=== PATIENT | male | born 1980 | race Asian ===

== ENCOUNTER 2016-06-30 10:14 | Inpatient (IN) | payer BC ==
[~2016-06-30 10:14] MED LIST: ceFAZolin 2 GM/DEXTROSE 100 ML IV ONE
[2016-06-30] MEDS ORDERED: CEFAZOLIN 2 GM/DEXTROSE/100 ML BAG IV ONE (10:49)
[2016-06-30] MEDS ORDERED: LIDOCAINE 1% 2 ML INJ ONE (10:49)
[2016-06-30] MEDS ORDERED: LIDOCAINE 1% 5 ML SDV ID PRN (11:10)
[2016-06-30] MEDS ORDERED: LR 1,000 ML IV ONE (11:10)
[2016-06-30] MEDS ORDERED: GADOBUTROL 10 ML VIAL IVP ONE (11:22)
[2016-06-30] MEDS ORDERED: MANNITOL 20% 100 GM/500 ML BAG IV ONE (12:18)
[2016-06-30] MEDS ORDERED: AVITENE POWDER 1 GM JAR TP ONE (12:18)
[2016-06-30] MEDS ORDERED: SURGIFLO MATRIX KIT WITH THROMBIN TP ONE (12:18)
[2016-06-30] MEDS ORDERED: THROMBIN (BOVINE) 5,000 UNIT VIAL TP ONE (12:18)
[2016-06-30] MEDS ORDERED: BUPIVACAINE/EPI 0.25% 30 ML SDV ONE ×3 (12:19→19:12)
[2016-06-30] MEDS ORDERED: BACITRACIN 50,000 UNITS/10 ML SYR IRR ONE (12:20)
[2016-06-30] MEDS ORDERED: ACETAMINOPHEN 325 MG TAB PO PRN (12:32)
[2016-06-30] MEDS ORDERED: diphenhydrAMINE 25 MG CAP PO PRN (12:32)
[2016-06-30] MEDS ORDERED: MAGNESIUM HYDROXIDE 30 ML UDCUP PO PRN (12:32)
[2016-06-30] MEDS ORDERED: niCARdipine/NACL 200 ML IV PRN (12:32)
[2016-06-30] MEDS ORDERED: HYDROCODONE/APAP 10/325 TAB PO PRN (12:32)
[2016-06-30] MEDS ORDERED: POLYETHYLENE GLYCOL 3350 17 GM PKT PO PRN (12:32)
[2016-06-30] MEDS ORDERED: ONDANSETRON 4 MG/2 ML VIAL IVP PRN (12:32)
[2016-06-30] MEDS ORDERED: BISACODYL 10 MG SUPP PR PRN (12:32)
[2016-06-30] MEDS ORDERED: METHOCARBAMOL 750 MG TAB PO PRN (12:32)
[2016-06-30] MEDS ORDERED: PROMETHAZINE HCL 25 MG TAB PO PRN (12:32)
[2016-06-30] MEDS ORDERED: LACTULOSE 20 GM/30 ML UDCUP PO PRN (12:32)
[2016-06-30] MEDS ORDERED: MIDAZOLAM 2 MG/2 ML VIAL ONE (12:39)
[2016-06-30] MEDS ORDERED: REMIFENTANIL HCL 1 MG VIAL ONE ×2 (12:40→13:59)
[2016-06-30] MEDS ORDERED: LIDOCAINE 2% 100 MG/5 ML SYR ONE (12:41)
[2016-06-30] MEDS ORDERED: fentaNYL 100 MCG/2 ML INJ ONE ×2 (12:41→18:35)
[2016-06-30] MEDS ORDERED: PROPOFOL/EMULSION 500 MG/50 ML BOTTLE IV ONE ×2 (12:41→13:59)
[2016-06-30] MEDS ORDERED: DEXAMETHASONE 4 MG/ML VIAL ONE ×2 (12:45)
[2016-06-30] MEDS ORDERED: ONDANSETRON 4 MG/2 ML VIAL ONE (12:46)
--- NOTE | 2016-06-30 12:47 | POSTOPPROG ---
Post Op Note Date of Operation: 06/30/16 Surgeon: [facility] Scientist: Emerald Anthony PA-C Anesthesia: GET(General Endotracheal) Pre-op Diagnosis: Right temporal brain mass Post-op Diagnosis: same Procedure: Right temporal craniotomy for resection of brain mass Findings: See operative note Inf/Abcess present in the surg proc area at time of surgery?: No EBL: 50-100 Drains: George Osorio (Subgaleal) SOAP Progress Note Assessment/Plan: Assessment: Plan: S: Waking up in PACU slowly. Stable but not moving left side. O: NAD, VSS PERRl, EOMI No droop moving RUE/RLE to command LUE/LLE so far with no movement- Incision c/d/i- dressed Drain- Subgaleal GINA drain to suction A/P: 36 yo male sp right temporal craniotomy for resection of brain mass. -Postop with LUE/LLE weakness, stat CT ordered and taken down for scan from PACU -Admit to ICU -Neuro checks as ordered -Postop MRI in am -q8 sodium checks -Advance diet as tolerated -DVT : TEDs, SCDs, Lovenox- pending how postop MRI looks -On 10 day Decadron taper starting at 4mg q6 -Continue Keppra -PT/OT/ELECTRICAL ESTIMATOR -Call with any neuro exam changes -Seen by Dr. Hare in PACU 06/30/16 12:43 06/30/16 20:02
[2016-06-30] MEDS ORDERED: LIDOCAINE HCL 160 MG/4 ML LTA KIT TP ONE (12:50)
[2016-06-30] MEDS ORDERED: epHEDrine SULFATE 10 MG/ML SYR ONE ×2 (12:55)
[2016-06-30] MEDS ORDERED: levETIRAcetam 1,000 MG in NS 100 ML IV ONE (13:00)
[2016-06-30] MEDS ORDERED: *MD ORDERING ONLY-DEXAMETHASONE TAPER PO SCH (13:00)
[2016-06-30] MEDS ORDERED: PAPAVERINE HCL 60 MG/2 ML SDV ONE (15:57)
[2016-06-30] MEDS ORDERED: PROPOFOL 200 MG/20 ML VIAL ONE (17:57)
[2016-06-30] MEDS ORDERED: DEXAMETHASONE 4 MG TAB PO SCH (20:00)
[2016-06-30] MEDS ORDERED: FAMOTIDINE 20 MG TAB PO SCH (21:00)
[2016-06-30] MEDS ORDERED: levETIRAcetam 500 MG TAB PO SCH (21:00)
[2016-06-30] MEDS ORDERED: NS BOLUS 500 ML (Wide open) IV ONE (22:30)
[2016-06-30] MEDS: levETIRAcetam 1,000 MG in NS 100 ML IV SCH (23:09)
[2016-06-30] MEDS: NS W/ 20 KCl/L 1,000 ML IV SCH (23:09)
[2016-06-30] MEDS: SENNOSIDES/DOCUSATE SODIUM TAB PO SCH (23:09)
[2016-06-30] MEDS: DEXAMETHASONE 4 MG/ML VIAL IVP SCH (23:10)
[2016-07-01] MEDS: FAMOTIDINE 20 MG/NACL 50 ML IV SCH ×3 (01:19→20:23)
[2016-07-01] MEDS ORDERED: NS BOLUS 1000 ML (Wide open) IV ONE (03:00)
[2016-07-01 04:25] LABS: % IMMATURE GRANULYOCYTES 0.5 % (0.0-1.1); ABSOLUTE IMMATURE GRANULOCYTES 0.08 10^3/uL (0.00-0.10); ADD DIFF? NO; ADD MORPH? NO; ADD SCAN? NO; ATYPICAL LYMPHOCYTE FLAG 0 (0-99); FRAGMENT RBC FLAG 0 (0-99); HEMATOCRIT 34.1 % (40.0-51.0); LEFT SHIFT FLG 10 (0-99); LIPEMIA HEMOLYSIS FLAG 90 (0-99); MEAN CELL HEMOGLOBIN 33.7 pg (27.9-34.1); MEAN CELL HEMOGLOBIN CONCENTR. 35.2 g/dL (32.4-36.7); MEAN CELL VOLUME 95.8 fL (81.5-99.8); MEAN PLATELET VOLUME 9.3 fL (8.7-11.7); PLATELET CLUMPS FLAG 0 (0-99); PLATELET COUNT 169 10^3/uL (150-400); RED BLOOD CELL COUNT 3.56 10^6/uL (4.40-6.38); RED CELL DISTRIBUTION WIDTH 12.2 % (11.5-15.2)
--- NOTE | 2016-07-01 04:30 | GOP ---
[f rep st] OPERATIVE REPORT DATE OF OPERATION: 06/30/2016 SURGEON: Jam Hare MD NEUROSURGEON: Jam Hare MD. 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 PROCEDURE PERFORMED: 1. Right frontotemporal craniotomy for microsurgical gross total resection of right temporal astroc ytoma. 2. Use of the operative microscope. 3. Stealth stereotactic neuronavigation for volumetric gross total resection of brain tumor. 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 SPECIMENS: Right temporal brain tumor. All sponge and needle counts were correct at the end of the case. ESTIMATED BLOOD LOSS: 200 cc. INDICATIONS: The patient is a 36-year-old man who presented with seizures approximately 1 month ago . In the workup procedures, he had an MRI of the brain which revealed a large, nearly 5 cm, mass in the right temporal lobe with significant involvement of the amygdala and anterior hippocampus, whic h was encroaching medially across the edge of the tentorium and causing mass effect on the brainstem . He was not symptomatic from his mass effect on the brainstem but only with was seizures. He pres ents today for elective biopsy and resection. DESCRIPTION OF PROCEDURE: After informed consent was obtained from the patient, the patient was bro ught to the operating room, was placed in supine position on the operating table. A formal time-out was performed, identifying the patient by name, medical record number, and date of . Preopera tive antibiotics were given. The endotracheal tube was placed and general endotracheal anesthesia w as smoothly induced. The patient's head was then placed in the Manzo pins and turned toward the left side, exposing the right temporal region. The Stealth was then registered to the scalp using k nown surface landmarks and checked for accuracy. This was used to plan a reverse question-fredi styl e temporal incision. The hair was clipped. 20 cc of 0.25% Marcaine with epinephrine was infiltrate d in the skin for hemostasis. At this point, the head was prepped and draped in the normal sterile fashion. The skin incision was made using a 10 blade and the subcutaneous tissues were dissected using monopolar electrocautery. Farooq clips were placed for hemostasis. Next, the temporalis muscle and its fascia was opened in ne with the incision and a single myocutaneous flap was retracted anteriorly. We identified the dorcas t of the zygoma on the inferior aspect of the wound, and then we elevated the scalp anteriorly to id entify the area just posterior to the keyhole. At this point, we checked the Stealth to be sure that we would cover the appropriate area for the cr aniotomy. Three bur holes were then made with the pipe turner. These were connected to form a front otemporal craniotomy flap. The Leksell rongeurs were used to bite down the sphenoid wing in paralle l with the skull base, and craniectomize a small portion near the temporal tip. We then irrigated e verything with copious amounts of bacitracin irrigation. All bleeding was controlled with bipolar c autery and Gelfoam. The dura was then opened in a curvilinear fashion with its flap toward the sphe noid wing and this was flapped anteriorly. The operative microscope was then brought on the field and the remainder of the procedure was perfor med under high-power magnification. We began by inspecting the brain surface and, near the anterior temporal tip, the surface appeared somewhat pale and abnormal such as is common with a low-grade tu mor. The vein of Lilly was seen coursing posteriorly and we did not want to cause any problems with this. Therefore, just anterior to the vein of Lilly, the arachnoid was dissected over the fissure. This was on the posterior temporal lobe, and we extended this toward the sylvian fissure. Next, a biopsy was taken anteriorly of the abnormal tissue, which came back as likely low-grade glioma. We then used the ultrasonic aspirator to remove cap of brain from the vein of Lilly to the temporal tip. This was checked with the Stealth to be sure that we were covering the area of the tumor. The tumor was somewhat grayish and rubbery, and was fairly distinct from the normal brain tissue especi ally in the temporal tip. We continued this dissection inferiorly along the edge of the tentorium, removing completely the anterior temporal lobe. Once the inferior anterior temporal lobe was remove d, we next turned our attention to the sylvian fissure. The arachnoid over the sylvian fissure was 1st opened and a small MCA branch was identified, and we followed this down to the M2 trunks. Then going sub frontally, we opened the arachnoid all way down the proximal sylvian fissure and identified the carotid artery. We continued this dissection in th e sylvian fissure although this was quite difficult due to the nature of the tumor being expansile a nd elevating the MCA branches near the frontal lobe. We continued this dissection until the entiret y of the M1 was identified and protected. Then a few small arterial branches going to the temporal tip were coagulated and divided. We then were able to remove the complete temporal tip en bloc. Po steriorly we removed enough tumor until some choroid plexus in the temporal horn of the lateral vent ricle was identified. We then used this as a landmark and resected anteriorly toward the edge of th e tentorium, but inferior to the MCA where the uncus would be. The edge of the tentorium was identi fied and the tumor was carefully from this area. The 3rd nerve was identified and this wa s quite adherent to the uncus via the arachnoid. This was very carefully dissected away. By debulk ing and arachnoid dissection we were able to free the uncus, which was herniated far over the edge o f the tentorium. The cerebral peduncle of the mid brain was identified and carefully protected. Th e posterior communicating artery and the posterior cerebral artery were protected as well and dissec miguelito. Superiorly, we saw the basal vein of Eligio and therefore had removed the entirety of the u ncus. We then checked the margins of the resection with the Stealth and it appeared as though we gonzales d covered the entire area. I then checked all the edges of the tissue to be sure that there was no longer any abnormal looking tumor tissue on the margins. The wound was then copiously irrigated using sterile saline. The edges of the resection cavity were covered with Surgicel and there was no further bleeding. The cavity was then completely irrigated out with sterile saline and filled with sterile saline. The dura was then closed in a watertight fa shion using running 4-0 Nurolon. Some DuraSeal was placed over the dura. The craniotomy flap was t hen plated back in place using Synthes titanium plates and screws. A submuscular GINA drain was place d. The temporalis muscle and its fascia was closed using interrupted 2-0 Vicryl. The wound was cop winder iously irrigated using bacitracin irrigation again. The galea was closed using interrupted 2-0 Vicr yl, and the skin was closed using a running 4-0 Monocryl. The hair was then washed. Sterile dressi ngs were placed. The patient was awakened in the operating room. He was extubated and transferred to the PACU in stable condition. There were no operative complications. I was scrubbed and present for the entire procedure. FLUIDS REPLACED: And urine output were per the anesthesia record. /[id number]/MODL
[2016-07-01 04:36] LABS: ANION GAP 7 mEq/L (8-16); CALCIUM 8.1 mg/dL (8.5-10.4); CARBON DIOXIDE 22 mEq/l (22-31); CHLORIDE 109 mEq/L (97-110); CREATININE 0.6 mg/dL (0.7-1.3); GLOMERULAR FILTRATION RATE > 60; GLUCOSE 121 mg/dL (70-100); POTASSIUM 4.4 mEq/L (3.5-5.2); SODIUM 138 mEq/L (134-144)
[2016-07-01] MEDS: DEXAMETHASONE 4 MG/ML VIAL IVP SCH ×4 (04:41→22:21)
--- NOTE | 2016-07-01 08:09 | NEUSURGPN ---
Assessment/Plan: Assessment: Plan: S:Patient denies headaches, nausea, vomiting. O: NAD, VSS PERRl, EOMI- right eye with some lid lag slight left facial droop this morning moving RUE/RLE to command Moving LLE, more distally than proximally. 3/5 Incision c/d/i- dressed Drain- Subgaleal GINA drain to suction- output 150 A/P: 36 yo male sp right temporal craniotomy for resection of brain mass. -Postop with LUE/LLE paralysis, stat CT ordered and taken down for scan from PACU- showed no acute hemorrhage, this morning with LLE movement and will taper printed circuit layout left hand 3/5. Will obtain MRI this morning and look for signs of possible stroke. -Admit to ICU -Neuro checks as ordered -Postop MRI pending -q8 sodium checks- 138 this morning -Advance diet as tolerated -DVT : TEDs, SCDs, Lovenox- pending how postop MRI looks -On 10 day Decadron taper starting at 4mg q6 -Continue Kera -PT/OT/INTERIOR DESIGN PROFESSOR -Call with any neuro exam changes -Seen by Dr. Hare in PACU 06/30/16 12:43 06/30/16 20:02 Catheter Insertion Date: 07/01/16 - Physician Discussed Patient with Dr.: Hare Patient Seen by Dr.: Hare Neurosurgery Physical Exam - Vitals, I&O, Labs I and O 06/30/16 07/01/16 07/02/16 05:59 05:59 05:59 Intake Total 6333 Output Total 3920 450 Balance 2413 -450 Weight 60.2 kg Intake: IV Intake (ml) 5401 IV Infused (ml) 932 NS W/ 20 KCl/L 1,000 ml @ 932 100 mls/hr IV CONT DINO Rx#:[id number] Output: Urine (ml) 3450 450 Catheter 3450 Urinal 450 Estimated Blood Loss (ml) 250 Wound Drainage (ml) 220 Right Head George Osorio 220 Vital Signs Temp Pulse Resp BP Pulse Ox 37.1 C 63 16 91/45 L 94 07/01/16 04:00 07/01/16 07:00 07/01/16 07:00 07/01/16 07:00 07/01/16 07:00 Laboratory Results 07/01/16 04:15 07/01/16 04:15 ICD10 Worksheet Patient Problems: Problems Problem Status Onset Neoplasm of brain causing mass effect on adjacent structures Acute - ICD10 Problem Qualifiers (1) Neoplasm of brain causing mass effect on adjacent structures
[2016-07-01] MEDS: levETIRAcetam 1,000 MG in NS 100 ML IV SCH ×2 (09:28→20:45)
[2016-07-01] MEDS: CHOLECALCIFEROL VIT D3 1,000 UNITS TAB PO SCH (09:30)
[2016-07-01] MEDS: SENNOSIDES/DOCUSATE SODIUM TAB PO SCH ×2 (09:31→20:24)
[2016-07-01] MEDS ORDERED: GADOBUTROL 10 ML VIAL IVP ONE (10:41)
[2016-07-01] MEDS: NS W/ 20 KCl/L 1,000 ML IV SCH ×2 (13:35→23:59)
[2016-07-02] MEDS: DEXAMETHASONE 4 MG/ML VIAL IVP SCH ×4 (04:09→21:41)
[2016-07-02 04:24] LABS: % IMMATURE GRANULYOCYTES 0.5 % (0.0-1.1); ABSOLUTE IMMATURE GRANULOCYTES 0.08 10^3/uL (0.00-0.10); ADD DIFF? NO; ADD MORPH? NO; ADD SCAN? NO; ATYPICAL LYMPHOCYTE FLAG 0 (0-99); FRAGMENT RBC FLAG 0 (0-99); HEMATOCRIT 34.3 % (40.0-51.0); HEMOGLOBIN 12.1 g/dL (13.7-17.5); LEFT SHIFT FLG 10 (0-99); LIPEMIA HEMOLYSIS FLAG 90 (0-99); MEAN CELL HEMOGLOBIN 33.6 pg (27.9-34.1); MEAN CELL HEMOGLOBIN CONCENTR. 35.3 g/dL (32.4-36.7); MEAN CELL VOLUME 95.3 fL (81.5-99.8); MEAN PLATELET VOLUME 9.1 fL (8.7-11.7); PLATELET CLUMPS FLAG 0 (0-99); PLATELET COUNT 154 10^3/uL (150-400); RED CELL DISTRIBUTION WIDTH 12.2 % (11.5-15.2)
[2016-07-02 04:39] LABS: ANION GAP 3 mEq/L (8-16); CALCIUM 8.4 mg/dL (8.5-10.4); CARBON DIOXIDE 26 mEq/l (22-31); CHLORIDE 107 mEq/L (97-110); CREATININE 0.6 mg/dL (0.7-1.3); GLOMERULAR FILTRATION RATE > 60; GLUCOSE 127 mg/dL (70-100); SODIUM 136 mEq/L (134-144)
[2016-07-02] MEDS: CHOLECALCIFEROL VIT D3 1,000 UNITS TAB PO SCH ×2 (08:14→08:20)
[2016-07-02] MEDS: levETIRAcetam 1,000 MG in NS 100 ML IV SCH ×2 (08:14→20:52)
[2016-07-02] MEDS: FAMOTIDINE 20 MG/NACL 50 ML IV SCH ×2 (08:14→20:29)
[2016-07-02] MEDS: SENNOSIDES/DOCUSATE SODIUM TAB PO SCH ×3 (08:14→20:39)
--- NOTE | 2016-07-02 08:35 | SOAPPROG ---
SOAP Progress Note Assessment/Plan: Assessment: 36 yo M POD #2 right craniotomy for resection of temporal lesion, complicated by right sided basal ganglia infarct Plan: neuro: stable since yesterday, limited movement in left leg, no movement in left arm this am. PT/OT/ST, swallow study today on decadron on keppra dc GINA Na 136, continue to follow daily patient will likely need inpatient rehab ok to transfer to floor please call with neuro changes discussed with Dr Hare 07/02/16 08:29 07/02/16 08:37 07/02/16 08:38 Subjective: no headaches, no N/V. continued left arm/weakness. Objective: Vital Signs Temp Pulse Resp BP Pulse Ox 37.4 C 58 L 16 99/55 L 94 07/02/16 08:00 07/02/16 08:00 07/02/16 08:00 07/02/16 08:00 07/02/16 08:00 Laboratory Results 07/02/16 04:17 07/02/16 04:17 07/01/16 07/02/16 07/03/16 05:59 05:59 05:59 Intake Total 5246 3334 Output Total 5309 4590 325 Balance 6739 -5717 -043 AAOx4, +FC PERRL, left facial droop right/left arm 5/5, left arm 0/5, left leg 1/5 + light touch C/D/I ICD10 Worksheet Patient Problems: Problems Problem Status Onset Neoplasm of brain causing mass effect on adjacent structures Acute
--- NOTE | 2016-07-02 17:25 | GCON ---
[f rep st] CONSULTATION PULMONARY/CRITICAL CARE CONSULTATION. DATE OF CONSULTATION: 07/01/2016 REFERRING PHYSICIAN: Jam Hare MD REASON FOR CONSULTATION: Evaluation and management of hypotension and CVA. HISTORY: The patient is a 36-year-old male who in May had the onset of some seizures. An MRI jesus wed an expansile mass in the right temporal lobe with some uncal herniation. He was referred to Dr. Hare, who performed a craniotomy with resection of the tumor, which was felt to be an astrocytoma. The intraoperative course was unremarkable. Postoperatively, the patient has had hemiplegia on th e left, which was unexpected. An MRI demonstrates a CVA affecting the internal capsule on the right . The patient is somnolent; but when he awakes, he denies pain. PAST MEDICAL HISTORY: None. MEDICATIONS: None prior to current illness. He has been started on Keppra. SOCIAL HISTORY: The patient does not drink and has never smoked. FAMILY HISTORY: Negative. REVIEW OF SYSTEMS: Unobtainable. PHYSICAL EXAMINATION: GENERAL: The patient is somnolent but arousable. VITAL SIGNS: His blood pr essure is 90/60. His heart rate is 70. He is afebrile. Oxygen saturations are 95% on room air. H EENT: Normocephalic and atraumatic. NECK: No adenopathy. Trachea is midline. CHEST: Clear to a uscultation. CARDIAC: Regular rate and rhythm without murmur. ABDOMEN: Soft, nontender. Bowel s ounds are present. EXTREMITIES: No clubbing, cyanosis, or edema. NEURO: The patient is somnolent but arousable. He has a left facial droop and left hemiparesis with 0/1 strength in his arm and le g on the left. LABORATORY DATA: Chemistry group shows a white blood count of 17.5, hemoglobin is 12.0, and platele t count is 169. Chemistry group is unremarkable. Glucose is 121. An MRI shows an area of ischemia/infarct in the internal capsule on the right. The images were revi ewed per Dr. Hare. ASSESSMENT: 1. Brain tumor, status post resection. 2. Acute cerebrovascular accident. This is likely related to a spasm or transient occlusion of art erial blood flow intraoperatively. It is causing dense hemiparesis currently, although the patient did have a bit more movement in his left side earlier today. This could be related to changes in pe rfusion related to blood pressure. 3. Hypotension. The patient has mild hypotension, but this could be contributing to the patient's paresis. RECOMMENDATIONS: 1. I will give a bolus of saline to see if that can improve his blood pressure. If improved blood pressure improves his neuro exam, we will either continue fluids or start pressors in order to maint ain perfusion. 2. Monitor in the ICU overnight. /[id number]/MODL
[2016-07-02] MEDS: NS W/ 20 KCl/L 1,000 ML IV SCH (20:29)
[2016-07-03] MEDS: DEXAMETHASONE 4 MG/ML VIAL IVP SCH ×3 (04:16→17:32)
[2016-07-03] MEDS: NS W/ 20 KCl/L 1,000 ML IV SCH ×2 (04:42→21:23)
--- NOTE | 2016-07-03 08:58 | NEUSURGPN ---
Assessment/Plan: Assessment: Plan: S:Patient states he is feeling better this morning. Denies headaches. Eating well. O: AAOx4, +FC PERRL, left facial droop right/left arm 5/5, left arm 0/5, left leg 1/5 + light touch C/D/I - dressed Assessment: 36 yo M POD #3 right craniotomy for resection of temporal lesion, complicated by right sided basal ganglia infarct Plan: neuro: stable since yesterday, limited movement in left leg, no movement in left arm this am. PT/OT/ST, has passed swallow eval on decadron- continue for 10 days total- taper on keppra Na 137 this am patient seen by [facility] yesterday- will likely go when bed available, ok from neurosurg standpoint to be discharged when bed available please call with neuro changes discussed with Dr Hare 06/30/16 12:43 06/30/16 20:02 Catheter Insertion Date: 07/01/16 - Physician Discussed Patient with Dr.: Hare Patient Seen by Dr.: Hare Neurosurgery Physical Exam - Vitals, I&O, Labs I and O 07/02/16 07/03/16 07/04/16 05:59 05:59 05:59 Intake Total 3334 2053 Output Total 4590 4020 400 Balance -1255 Weight 60.2 kg Intake: IV Intake (ml) 1150 1253 IV Infused (ml) 2184 800 Famotidine 20 mg/NaCl 50 50 ml @ 200 mls/hr IV Q12 DINO Rx#:[id number] NS W/ 20 KCl/L 1,000 ml @ 2034 800 100 mls/hr IV CONT DINO Rx#:[id number] levETIRAcetam 1,000 mg In 100 Ns 100 ml @ 440 mls/hr IV Q12 DINO Rx#:[id number] Output: Urine (ml) 4350 3990 400 Incontinence 1425 Urinal 4350 2565 400 Wound Drainage (ml) 240 30 Right Head George Osorio 240 30 Other: Intake Quantity Yes Sufficient Number of Voids Incontinence 2 1 Urinal 1 1 1 Vital Signs Temp Pulse Resp BP Pulse Ox 36.4 C 65 14 92/39 L 95 07/03/16 07:49 07/03/16 07:49 07/03/16 07:49 07/03/16 07:49 07/03/16 07:49 Laboratory Results 07/02/16 04:17 07/03/16 05:25 ICD10 Worksheet Patient Problems: Problems Problem Status Onset Neoplasm of brain causing mass effect on adjacent structures Acute - ICD10 Problem Qualifiers (1) Neoplasm of brain causing mass effect on adjacent structures
[2016-07-03] MEDS ORDERED: ENOXAPARIN 40 MG/0.4 ML SYR SC SCH (09:00)
[2016-07-03] MEDS: levETIRAcetam 1,000 MG in NS 100 ML IV SCH (09:40)
[2016-07-03] MEDS: FAMOTIDINE 20 MG/NACL 50 ML IV SCH (09:59)
[2016-07-03] MEDS: SENNOSIDES/DOCUSATE SODIUM TAB PO SCH ×2 (10:05→21:24)
[2016-07-03] MEDS: CHOLECALCIFEROL VIT D3 1,000 UNITS TAB PO SCH (10:05)
--- NOTE | 2016-07-03 14:19 | PDIAF ---
- Diagnosis Code Status: Full Code - Medication Management Discharge Medications: Medications to Continue on Transfer Cholecalciferol Vit D3 [Vitamin D3 (*)] 1,000 units PO DAILY 06/30/16 [Last Taken 06/25/16] levETIRACETAM [Levetiracetam] 1,000 mg PO BID 06/30/16 [Last Taken 06/29/16 21: 00] Acetaminophen [Tylenol 325mg (*)] 650 mg PO Q4HRS PRN #0 tab 07/03/16 [Last Taken Unknown] Cholecalciferol Vit D3 [Vitamin D3 (*)] 1,000 units PO DAILY #0 tab 07/03/16 [ Last Taken Unknown] Dexamethasone [Decadron 4mg/ml inj (*)] 2 mg IVP Q12H #0 vial 07/03/16 [Last Taken Unknown] Dexamethasone [Decadron 4mg/ml inj (*)] 2 mg IVP Q24H #0 vial 07/03/16 [Last Taken Unknown] Dexamethasone [Decadron 4mg/ml inj (*)] 4 mg IVP Q12H #0 vial 07/03/16 [Last Taken Unknown] Dexamethasone [Decadron 4mg/ml inj (*)] 4 mg IVP Q6H #0 vial 07/03/16 [Last Taken Unknown] Famotidine [Pepcid 20 MG (*)] 20 mg PO BID #0 tab 07/03/16 [Last Taken Unknown] HYDROcodone/APAP 10/325 [[place] 10/325 (*)] 1 - 2 tab PO Q6HRS PRN #0 tab [Last Taken Unknown] Ondansetron HCl Pf [Zofran 4 mg Inj (*)] 4 mg IVP Q4HRS PRN #0 vial 07/03/16 [ Last Taken Unknown] Polyethylene Glycol 3350 [Miralax 17 gm (*)] 17 gm PO DAILY PRN #0 pkt 07/03/16 [Last Taken Unknown] Promethazine HCl [Phenergan 25mg (*)] 12.5 - 25 mg PO Q6HRS PRN #0 tab 07/03/16 [Last Taken Unknown] Sennosides/Docusate Sodium [Senokot-S] 1 - 2 tab PO BID #0 tab 07/03/16 [Last Taken Unknown] diphenhydrAMINE [Benadryl 25 MG (*)] 25 mg PO HS PRN #0 cap 07/03/16 [Last Taken Unknown] Discharge Medications: Refer to the Discharge Home Medication list for PRN reason. - Orders Services needed: Home Care, Registered Nurse, Physical Therapy, Occupational Therapy, Speech Language Pathologist Home Care Face to Face: I certify that this patient was under my care and that I had the required [id number] encounter meeting the encounter requirements on the discharge day. My findings support the fact that the patient is homebound as defined in CMS Chapter 7 Medicare Benefits Manual 30.1.1, The condition of the patient is such that there exists a normal inability to leave home and consequently, leaving home would require a considerable and taxing effort. Diet Recommendation: no restrictions on diet Diet Texture: Dysphagia 1 - Pureed, Thin Liquids, Meds Crushed in Puree Wound Care Instructions: No restrictions, activity as tolerated-. can remove dressing today 07/03. May shower on postop day #3, may get incision wet, keep short 5-7 minutes. Continue Keppra 100mg BID. Continue Decadron Taper: patient is on a 10 day steroid taper. He is to finish the following: -finish 4mg q6hrs by midnight tonight 07/03. -Then 4mg q12 X 3 days. -Then 2mg q12 X 2 days. -Then 2mg q24 X 2 days then stop Activity/Weight Bearing Restrictions: No restrictions, activity as tolerated-. can remove dressing today 07/03. May shower on postop day #3, may get incision wet, keep short 5-7 minutes. Continue Keppra 100mg BID. Continue Decadron Taper: patient is on a 10 day steroid taper. He is to finish the following: - finish 4mg q6hrs by midnight tonight 07/03. -Then 4mg q12 X 3 days. -Then 2mg q12 X 2 days. -Then 2mg q24 X 2 days then stop - Follow Up Care Current Providers and Referrals: Joshua Armenta MD [Primary Care Provider] - Jam Hare MD [Medical Doctor] - follow up in 2 weeks
[2016-07-03] MEDS: levETIRAcetam 500 MG/5 ML UDCUP PO SCH (21:24)
[2016-07-03] MEDS: FAMOTIDINE 20 MG TAB PO SCH (21:25)
[2016-07-04] MEDS ORDERED: DEXAMETHASONE 4 MG TAB PO SCH (02:00)
[2016-07-04] MEDS ORDERED: DEXAMETHASONE 4 MG/ML VIAL IVP SCH (04:30)
[2016-07-04] MEDS: NS W/ 20 KCl/L 1,000 ML IV SCH (06:32)
[2016-07-04 07:27] VITALS: BP 97/55; PULSE 55; RESP 14; TEMP 97.7; O2SAT 92
[2016-07-04] MEDS: FAMOTIDINE 20 MG TAB PO SCH (09:48)
[2016-07-04] MEDS: levETIRAcetam 500 MG/5 ML UDCUP PO SCH (09:48)
[2016-07-04] MEDS: CHOLECALCIFEROL VIT D3 1,000 UNITS TAB PO SCH (09:48)
[2016-07-04] MEDS: SENNOSIDES/DOCUSATE SODIUM TAB PO SCH (09:48)
--- NOTE | 2016-07-04 10:08 | NEUSURGPN ---
Assessment/Plan: Assessment: 36 yo M POD #4 right craniotomy for resection of temporal lesion, complicated by right sided basal ganglia infarct Plan: neuro: stable since yesterday, limited movement in left leg, no movement in left arm this am. PT/OT/ST, has passed swallow eval on decadron- continue for 10 days total- taper on keppra [place] to trasnfer to [facility] today, discharge with held up yesterday. discussed with Dr Hare Catheter Insertion Date: 07/01/16 Neurosurgery Physical Exam - Vitals, I&O, Labs I and O 07/03/16 07/04/16 07/05/16 05:59 05:59 05:59 Intake Total 2052 1999 Output Total 4020 2825 250 Balance -19665 Intake: Oral (ml) 650 IV Intake (ml) 1253 IV Infused (ml) 800 1350 Famotidine 20 mg/NaCl 50 50 ml @ 200 mls/hr IV Q12 DINO Rx#:[id number] NS W/ 20 KCl/L 1,000 ml @ 800 1200 100 mls/hr IV CONT DINO Rx#:[id number] levETIRAcetam 1,000 mg In 100 Ns 100 ml @ 440 mls/hr IV Q12 DINO Rx#:[id number] Output: Urine (ml) 3990 2825 250 Incontinence 1425 1175 Urinal 2565 1650 250 Wound Drainage (ml) 30 Right Head George Osorio 30 Other: Intake Quantity Yes Yes Sufficient Number of Voids Incontinence 1 3 Urinal 1 1 1 Vital Signs Temp Pulse Resp BP Pulse Ox 36.5 C 55 L 14 97/55 L 92 07/04/16 07:26 07/04/16 07:26 07/04/16 07:26 07/04/16 07:26 07/04/16 07:26 Laboratory Results 07/02/16 04:17 07/03/16 05:25 ICD10 Worksheet Patient Problems: Problems Problem Status Onset Neoplasm of brain causing mass effect on adjacent structures Acute
[2016-07-06] MEDS ORDERED: DEXAMETHASONE 2 MG TAB PO SCH (02:00)
[2016-07-06] MEDS ORDERED: DEXAMETHASONE 4 MG/ML VIAL IVP SCH (04:30)
[2016-07-08] MEDS ORDERED: DEXAMETHASONE 2 MG TAB PO SCH (14:00)
[2016-07-08] MEDS ORDERED: DEXAMETHASONE 4 MG/ML VIAL IVP SCH (16:30)
== END 2016-07-04 11:38 | DRG 25 ==
LOC: F3N 10:14 → F2N 19:37 → F3N 07-02 21:01
PROVIDERS: ADMIT Neurological Surgery; ATTEND Neurological Surgery
DX: C71.2 Malignant neoplasm of temporal lobe (principal); I63.9 Cerebral infarction, unspecified; G81.90 Hemiplegia, unspecified affecting unspecified side; I95.81 Postprocedural hypotension
CPT/HCPCS: 92507-GN; 92523-GN; 92526-GN; 92610-GN; 97112-GP; 97162-GP; 97167-GO; 97530-GO; 97530-GP; 97535-GO; A9585; C1713; J0690; J1100; J1953; J2001; J2250; J2405; J2440; J2704; J3010

== ENCOUNTER 2016-07-04 12:00 | Inpatient (IN) | payer BC ==
[2016-07-04] MEDS ORDERED: POLYETHYLENE GLYCOL 3350 17 GM PKT PO PRN (12:54)
[2016-07-04] MEDS: BISACODYL 10 MG SUPP PR PRN (13:27)
[2016-07-04] MEDS ORDERED: PROMETHAZINE HCL 25 MG TAB PO PRN (13:29)
[2016-07-04] MEDS ORDERED: ONDANSETRON DISINTEGRATING 4 MG TAB PO PRN (13:31)
--- NOTE | 2016-07-04 13:32 | PDOREHIP ---
Admission [facility] - Admission - 3 Day Assessment Period Admission Date/Day 1: 07/04/16 Day 2: 07/05/16 Day 3: 07/06/16 - Active Diagnoses Comorbidities and Co-existing Conditions at Admission: 94032. None of the Above - Skin Conditions Unhealed Pressure Ulcer (1 or more/Stage 1 or >)-Admission: 0. No
--- NOTE | 2016-07-04 14:41 | GHP ---
[f rep st] HISTORY AND PHYSICAL POST-ADMISSION PHYSICIAN EVALUATION AND REHABILITATION TREATMENT PLAN DATE OF ADMISSION: 07/04/2016 DATE OF EVALUATION: 07/04/2016 TIME OF EVALUATION: 1245 hours. REFERRING FACILITY: [facility]. IMPAIRMENT GROUP: 2.1. DATE OF ONSET: 06/30/2016 REFERRING PHYSICIAN: Dr. Hare. REHABILITATION DIAGNOSIS: Debility, status post craniotomy for right temporal lobe tumor excision with perioperative cerebrovascular accident in the right basal ganglia/lentiform nucleus and right temporal lobe along the anterior and posterior surgical margins. ETIOLOGIC DIAGNOSIS: Nontraumatic brain dysfunction. DATE OF SURGERY: 06/30/2016 HISTORY OF PRESENT ILLNESS: The patient is 36-year-old man who experienced seizures. An MRI of his brain was done which showed a right temporal lobe tumor on 06/11/2016. He came to [facility] on 06/30/2016 and had surgery on the same day, removing approximately a 4.7 x 5 cm tumor from the right temporal lobe. There was residual tumor seen on the followup MRI. He unfortunately suffered a perioperative cerebrovascular accident involving the right basal ganglia/lentiform nucleus and the right temporal lobe along the anterior and posterior surgical margins. He has profound weakness of the left upper extremity and left lower extremity. He was otherwise medically stabilized and referred to inpatient rehabilitation for recovery from his deficits. STUDIES IN THE HOSPITAL: MR brain imaging postsurgical is as described above. LABORATORY STUDIES: Most recent on 07/02/2016. CBC showed an elevated white blood cell count of 16.8, likely due to corticosteroid treatment. He has some anemia with a hemoglobin of 12.1 and hematocrit of 34.3. These have improved somewhat from the previous day. Serum chemistry on 07/02/2016 showed overall normal renal function and electrolytes. Creatinine was low at 0.6. Glucose was high at 127. He had a slightly low calcium at 8.4. On 07/03/2016, his sodium level was stable. It was 137. PRECAUTIONS: He is a fall risk. He has aspiration precautions. He has seizure precautions. ACTIVE COMORBIDITIES: He has a tier 3 comorbidity of hemiparesis. Otherwise, he has no active tier 1, tier 2, or tier 3 comorbidities. PAST MEDICAL HISTORY: He had an ACL injury. PAST SURGICAL HISTORY: He had an ACL repair in 2012. PRE-HOSPITAL MEDICATIONS: I do not believe he was taking any medications. ADMISSION MEDICATIONS: 1. Aspirin 650 mg q.6 hours p.r.n. 2. Cholecalciferol 1000 units p.o. daily. 3. Dexamethasone taper. 4. Diphenhydramine 25 mg p.o. at bedtime. 5. Famotidine 20 mg p.o. b.i.d. 6. Hydrocodone/acetaminophen 10/325, 1-2 tabs p.o. q.4 hours p.r.n. 7. Levetiracetam 1000 mg p.o. b.i.d. 8. Ondansetron. 9. Polyethylene glycol 17 g p.o. daily. 10. Promethazine 12.5 to 25 mg p.o. q.6 hours. 11. Senna/docusate 1-2 tabs p.o. b.i.d. ALLERGIES: There are no known drug allergies. FAMILY HISTORY: Noncontributory. PSYCHOSOCIAL HISTORY: He is . He lives with his and I believe with his father as well. He is a nonsmoker. He has been working as a android software engineer. He and his family are originally from [facility]. REVIEW OF SYSTEMS: He reports constipation times four days. He has weakness of the left arm and left leg. He has minimal pain. He denies fevers, chills, cough, dyspnea, chest pain, palpitations, nausea, and vomiting. His appetite is good. He denies urinary frequency or dysuria. He denies joint pain or joint swelling. He denies skin rash or skin breakdown. Otherwise, a 10-point review of systems is negative. PHYSICAL EXAMINATION: VITAL SIGNS: Blood pressure is 99/56, heart rate is 51 respiratory rate is 16, oxygen saturation is 95% on room air, and temperature is 36.8 degrees centigrade. His weight is 60.2 kg, for a body mass index of 20.8. GENERAL: This is a well-nourished, well-developed man who appears younger than his chronologic age, in bed, cooperative, and in no acute distress. HEENT: Extraocular movements are intact. Pupils are equal, round, and reactive to light. He has right ptosis. Mucous membranes are moist. Dentition is in good condition. NECK: Supple. HEART: There is a regular rate and rhythm, with no murmurs, rubs, or gallops. LUNGS: Clear to auscultation bilaterally. ABDOMEN: Soft, nontender, and nondistended, with normoactive bowel sounds and no hepatosplenomegaly. EXTREMITIES: There is no cyanosis, clubbing, or edema. Radial pulses are 2+ bilaterally. Dorsalis pedis pulses are 2+ on the right and trace on the left. NEUROLOGIC: He is alert and oriented x3. He has right ptosis and a left facial droop. Otherwise , cranial nerves 2 through 12 are grossly intact. He has flaccid paralysis of the left upper extremity. On the left lower extremity, he has muscle contraction at the hip flexors and some at the quads. Otherwise, his strength is 0/5 in the left lower extremity. The right upper and lower extremities have normal strength. Sensation is intact to light touch. Deep tendon reflexes are 2+ bilaterally at the biceps, patella, and Achilles tendons. He has poor seated balance. Visual field testing was not attempted due to complications of his right ptosis. He has no dysarthria. SKIN: There are no rashes and no skin breakdown noted. His right frontotemporal craniotomy incision is covered with a dressing and will be examined once the dressing is removed. CURRENT LEVEL OF FUNCTION PER THE PRE-ADMISSION SCREEN: Regarding diet, feeding and swallowing, he was noted to have mild to moderate dysphagia. He was on a dysphagia 1 diet, requiring supervision and assistance with meals. For grooming, he required maximal assistance. For bathing, it was anticipated that assistance would be required. For dressing, again it was anticipated that assistance would be required. For toileting, he required maximal assistance for clothing management. Regarding bladder, he was noted to be incontinent on 07/03 and 07/04. Regarding bowel, he did not have a bowel movement while in acute care. Regarding bed mobility, supine to sit required maximal assist of 2 with voice cuing. Sit to supine required maximal assistance of 2. Today, he was able to accomplish these with moderate assistance of 1. Regarding balance, he required moderate to maximal assistance for seated balance, and this was consistent with today's exam. He was noted to push to the left. Endurance was fair. Communication had moderate impairment. Regarding cognition, there was moderate impairment in attention, executive function, and judgment. He was noted to have left hemineglect. IMPRESSION: Mr. Franco is a 36-year-old man who initially presented with seizures, for which he was treated with levetiracetam and had an MRI of his brain. The MRI showed a nearly 5 cm complex mass in the right temporal lobe. He underwent surgery on 06/30/2016 with excision of the mass. 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 He unfortunately suffered a perioperative cerebrovascular accident involving the residual right temporal lobe along the anterior and posterior surgical margins and of the right basal ganglia and lentiform nucleus. He has deficits including significant left- sided weakness, dysphagia, and left hemineglect, as well as balance impairment. There is still mass effect in his brain on the brain MRI of 07/01/2016, and he was discharged on a steroid taper to treat the associated edema. He is appropriate for inpatient rehabilitation where he will benefit from physical and occupational therapy to optimize his mobility and activities of daily living, speech language pathology for swallowing and communication, nursing care regarding fall risk, bowel and bladder, medication administration and education, neurologic education for the patient and his family, and wound healing and skin integrity. He will benefit from the care of a physician regarding the seizure disorder, the risk for deep venous thrombosis, the risk for infection, and pain management. His goal is to return home with his family and supportive services for a safe discharge. It is anticipated that he will achieve independence with eating and grooming. He will tolerate a regular diet with the least restrictive diet texture. He will achieve modified independence for bed mobility. He may continue to require standby assist to contact guard for transfers. He likely will require assistance for bathing and dressing. It is likely that a wheelchair will be his primary means of mobility, but he may be able to ambulate with a arturo-walker for household distances. He will receive therapy with physical therapy, occupational therapy, and speech and language pathology on a modified schedule for 30-60 minutes per day for each discipline for 7 days a week, to total 15 hours of therapy per week or more. His expected duration of stay is 10-14 days. It is anticipated that upon discharge, he will continue to benefit from home health services, including nursing, speech and language pathology, a nurse's aide, community mental health social worker, occupational therapy, physical therapy, and a stroke support group. ASSESSMENT/PLAN: 1. Left-sided hemiparesis and hemineglect following excision of a right temporal mass and perioperative cerebrovascular accident on 06/30/2016. Physical therapy and occupational therapy to optimize mobility and activities of daily living. 2. Dysphagia and cognitive/communication issues to be assessed and treated per Speech and Language Pathology. 3. Status post craniotomy and excision of brain tumor. Nursing care for wound healing. Continue dexamethasone taper per Neurosurgery. 4. 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 Continue levetiracetam until followup by Neurosurgery. 5. Constipation. Bisacodyl suppository today and bowel program to be adjusted as needed. 6. Prophylaxis. With his right hemiplegia, he is at risk for deep venous thrombosis. However, having just had a craniotomy, he may be at risk for a brain bleed. This was discussed fwith Dr. Hare, Neurosurgery. Will treat with low-dose prophylactic heparin. As he is also on dexamethasone, he may benefit from a gastrointestinal prophylaxis. Regarding risk for ulceration, we will continue famotidine as ordered by Neurosurgery. 7. Pain control will be continued with hydrocodone/acetaminophen combination, and medications will be adjusted as needed. Primary care provider id Dr. Armenta. Follow-up with Neurosurgeon Dr. Hare in 2 weeks. /[id number]/MODL MTDD
[2016-07-04] MEDS: DEXAMETHASONE 4 MG TAB PO SCH (16:39)
[2016-07-04] MEDS ORDERED: LEVETIRACETAM 1000 MG PO SCH (21:00)
[2016-07-04] MEDS: HEPARIN 5,000 UNIT/0.5 ML SYR SC SCH (21:33)
[2016-07-04] MEDS: levETIRAcetam 500 MG TAB PO SCH (21:33)
[2016-07-04] MEDS: FAMOTIDINE 20 MG TAB PO SCH (21:33)
[2016-07-05] MEDS: DEXAMETHASONE 4 MG TAB PO SCH ×2 (04:14→17:04)
[2016-07-05] MEDS: HEPARIN 5,000 UNIT/0.5 ML SYR SC SCH ×3 (05:52→20:57)
[2016-07-05] MEDS: levETIRAcetam 500 MG TAB PO SCH ×2 (08:45→20:57)
[2016-07-05] MEDS: FAMOTIDINE 20 MG TAB PO SCH ×2 (08:49→20:57)
[2016-07-05] MEDS: CHOLECALCIFEROL VIT D3 1,000 UNITS TAB PO SCH (08:49)
[2016-07-05] MEDS: POLYETHYLENE GLYCOL 3350 17 GM PKT PO SCH (08:49)
[2016-07-05] MEDS: ACETAMINOPHEN 325 MG TAB PO PRN (08:50)
[2016-07-05] MEDS: HYDROCODONE/APAP 10/325 TAB PO PRN (12:56)
--- NOTE | 2016-07-05 16:17 | SOAPPROG ---
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 Physical therapy and occupational therapy to optimize mobility and activities of daily living. Consider SSRI for arousal and motor recovery but will start low given seizure risk * Dysphagia and cognitive/communication issues to be assessed and treated per Speech and Language Pathology. * Status post craniotomy and excision of brain tumor. Nursing care for wound healing. Continue dexamethasone taper per Neurosurgery. 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 Continue levetiracetam until followup by Neurosurgery. * Constipation. Bisacodyl suppository and bowel program to be adjusted as needed. * Hypotension: likely due primarily to poor P.O., will encourage * Pain control: cont. hydrocodone/acetaminophen combination, and medications will be adjusted as needed. * Prophylaxis. With his right hemiplegia, he is at risk for deep venous thrombosis. However, having just had a craniotomy, he may be at risk for a brain bleed. Discussed further with Dr. Hare, Neurosurgery: ok with subq heparin. As he is also on dexamethasone, he may benefit from a gastrointestinal prophylaxis. Regarding risk for ulceration, we will continue famotidine as ordered by Neurosurgery. Dispo ideally to home with with f/u Neuro Onc, Neurosurg Subjective: No events overnight. Patient lethargic and poor arousal but discussed with and father. No e/o pain but always tired and poor initiation for food/fluids. Objective: Vital Signs Temp Pulse Resp BP Pulse Ox 36.8 C 55 L 18 92/55 L 96 07/05/16 08:00 07/05/16 11:32 07/05/16 08:00 07/05/16 11:32 07/05/16 08:00 07/04/16 07/05/16 07/06/16 05:59 05:59 05:59 Intake Total 700 944 Output Total 9149 700 Balance -1725 244 - Pending Discharge Pending Discharge Within 24 Hours: No Pending Discharge Within 48 Hours: No Physical Exam - Physical Exam General Appearance: no apparent distress, other (lthargic but arousable) Respiratory: lungs clear, normal breath sounds Cardiac/Chest: regular rate, rhythm Abdomen: non-tender, soft Skin: normal color, warm/dry Neuro/Psych: motor weakness (Left arturo), cognition abnormalities, other (poor arousal) ICD10 Worksheet Patient Problems: Problems Problem Status Onset Neoplasm of brain causing mass effect on adjacent structures Acute
[2016-07-06] MEDS: DEXAMETHASONE 2 MG TAB PO SCH ×2 (04:46→17:01)
[2016-07-06] MEDS: HEPARIN 5,000 UNIT/0.5 ML SYR SC SCH ×3 (05:20→21:00)
[2016-07-06 08:57] LABS: ANION GAP 9 mEq/L (8-16); CALCIUM 8.7 mg/dL (8.5-10.4); CARBON DIOXIDE 28 mEq/l (22-31); CHLORIDE 99 mEq/L (97-110); CREATININE 0.7 mg/dL (0.7-1.3); GLOMERULAR FILTRATION RATE > 60; GLUCOSE 101 mg/dL (70-100); POTASSIUM 4.3 mEq/L (3.5-5.2); SODIUM 136 mEq/L (134-144)
[2016-07-06] MEDS: POLYETHYLENE GLYCOL 3350 17 GM PKT PO SCH (09:11)
[2016-07-06] MEDS: levETIRAcetam 500 MG TAB PO SCH ×2 (09:11→20:59)
[2016-07-06] MEDS: CHOLECALCIFEROL VIT D3 1,000 UNITS TAB PO SCH (09:12)
[2016-07-06] MEDS: FAMOTIDINE 20 MG TAB PO SCH ×2 (09:12→20:59)
[2016-07-06] MEDS: ACETAMINOPHEN 325 MG TAB PO PRN ×2 (10:42→17:52)
[2016-07-06] MEDS: HYDROCODONE/APAP 10/325 TAB PO PRN (20:59)
--- NOTE | 2016-07-06 22:53 | SOAPPROG ---
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 Physical therapy and occupational therapy to optimize mobility and activities of daily living. Consider SSRI for arousal and motor recovery but will defer for now due to seizure risk * Dysphagia and cognitive/communication issues to be assessed and treated per Speech and Language Pathology. * Status post craniotomy and excision of brain tumor. Nursing care for wound healing. Continue dexamethasone taper per Neurosurgery. 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 Continue levetiracetam until followup by Neurosurgery. * Constipation. Bisacodyl suppository and bowel program to be adjusted as needed. * Hypotension: likely due primarily to poor P.O. (confirmed with prerenal BUN/Cr ), will encourage oral hydration but may need IV bolus * Pain control: cont. hydrocodone/acetaminophen combination, and medications will be adjusted as needed. * Prophylaxis. With his right hemiplegia, he is at risk for deep venous thrombosis. However, having just had a craniotomy, he may be at risk for a brain bleed. Discussed further with Dr. Hare, Neurosurgery: ok with subq heparin. As he is also on dexamethasone, he may benefit from a gastrointestinal prophylaxis. Regarding risk for ulceration, we will continue famotidine as ordered by Neurosurgery. Dispo ideally to home with with f/u Neuro Onc, Neurosurg Subjective: No events. No complaints this a.m. Ongoing assymptomatic hypotension, denies pain. Objective: Vital Signs Temp Pulse Resp BP Pulse Ox 36.9 C 61 16 98/59 L 96 07/06/16 18:29 07/06/16 18:29 07/06/16 18:29 07/06/16 18:29 07/06/16 18:29 Laboratory Results 07/06/16 06:30 07/05/16 07/06/16 07/07/16 05:59 05:59 05:59 Intake Total 700 2134 1416 Output Total 2425 2050 550 Balance -1725 84 866 Laboratory Tests 07/06/16 06:30 Sodium 136 Potassium 4.3 Chloride 99 Carbon Dioxide 28 Anion Gap 9 BUN 24 H Creatinine 0.7 Glucose 101 H - Pending Discharge Pending Discharge Within 24 Hours: No Pending Discharge Within 48 Hours: No Physical Exam - Physical Exam General Appearance: alert, no apparent distress Neck: full range of motion, supple Respiratory: lungs clear, normal breath sounds Cardiac/Chest: regular rate, rhythm Abdomen: non-tender, soft Skin: warm/dry Extremities: No pedal edema Neuro/Psych: alert, motor weakness (trace left finger flexors), cognition abnormalities, No speech abnormalities ICD10 Worksheet Patient Problems: Problems Problem Status Onset Neoplasm of brain causing mass effect on adjacent structures Acute
[2016-07-07] MEDS: HEPARIN 5,000 UNIT/0.5 ML SYR SC SCH ×3 (05:20→21:03)
[2016-07-07] MEDS: DEXAMETHASONE 2 MG TAB PO SCH ×2 (05:20→15:49)
--- NOTE | 2016-07-07 08:47 | SOAPPROG ---
SOAP Progress Note Assessment/Plan: Assessment: 36 yo M s/p excision of a right temporal mass and perioperative cerebrovascular accident on 06/30/2016: * Left-sided hemiparesis and hemineglect. Initial FIM 47. Ambulated 15' 2 person max A. Dressing max A. Reduced sitting balance. Transfers max A. Bathing mod A. Continue.physical therapy and occupational therapy to optimize mobility and activities of daily living. * Dysphagia and cognitive/communication issues. DD1 thin liq.; needs 1:1 feeding due to impulsivity. Anterior leak on L. Continue [employer]OR OF [employer] * Cognitive deficits. Decreased insight, safety awareness, , functional reading and writing, speed of processing, problem solving. Dysexecutive. Continue [employer]OR [employer]. * Status post craniotomy and excision of brain tumor. Nursing care for wound healing. Continue dexamethasone taper per Neurosurgery. 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 Continue levetiracetam until followup by Neurosurgery. Seizure precautions. * Constipation. Continue senna and polyethylene glycol. * Prophylaxis. High risk for DVT. Continue low-dose prophylactic heparin. As he is also on dexamethasone,l continue famotidine as ordered by Neurosurgery for GI protection. * Pain control will be continued with hydrocodone/acetaminophen combination. He 's using it once per day. Primary care provider id Dr. Armenta. Follow-up with Neurosurgeon Dr. Hare in 2 weeks. Attended staffing, 15 min. D/W case mgmt, nursing, personal care service provider, pharmacist, PT, OT , DIRECTOR OF [employer]. Parents in [place] for next 6 months. 3 MIKI, 1/2 bath on first floor. 20 steps to 2nd floor. Anticipate 6 weeks LOS with tentative discharge 08/11/16. 07/07/16 11:49 Subjective: C/O L shoulder pain especially when he lifts it with his right arm. No return of movement LUE or LLE. Sleeping well. No DRIVER. Objective: Vital Signs Temp Pulse Resp BP Pulse Ox 36.4 C 52 L 14 87/47 L 95 07/07/16 06:39 07/07/16 06:39 07/07/16 06:39 07/07/16 06:39 07/07/16 06:39 Laboratory Results 07/06/16 06:30 07/06/16 07/07/16 07/08/16 05:59 05:59 05:59 Intake Total 7 1516 Output Total 2049 950 Balance 84 566 - Time Spent With Patient Time Spent With Patient: Greater than 35 minutes floor time today, including more than 50% of time incoordination of care during staffing meeting, and counseling patient and family. Physical Exam - Physical Exam General Appearance: WD/WN, alert, no apparent distress, thin Respiratory: No respiratory distress, No accessory muscle use Cardiac/Chest: No edema Skin: normal color, warm/dry Neuro/Psych: alert, normal mood/affect, motor weakness (LUE & LLE. Eating breakfast with R hand, with tremor noted and slow movement.) ICD10 Worksheet Patient Problems: Problems Problem Status Onset Neoplasm of brain causing mass effect on adjacent structures Acute
[2016-07-07] MEDS: POLYETHYLENE GLYCOL 3350 17 GM PKT PO SCH (08:51)
[2016-07-07] MEDS: CHOLECALCIFEROL VIT D3 1,000 UNITS TAB PO SCH (08:53)
[2016-07-07] MEDS: SENNOSIDES 1 TAB PO PRN (08:53)
[2016-07-07] MEDS: levETIRAcetam 500 MG TAB PO SCH ×2 (08:53→21:02)
[2016-07-07] MEDS: FAMOTIDINE 20 MG TAB PO SCH ×2 (08:53→21:02)
[2016-07-08] MEDS: HYDROCODONE/APAP 10/325 TAB PO PRN (00:06)
[2016-07-08] MEDS: HEPARIN 5,000 UNIT/0.5 ML SYR SC SCH ×3 (06:38→21:58)
[2016-07-08] MEDS: BISACODYL 10 MG SUPP PR PRN (06:38)
[2016-07-08] MEDS: CHOLECALCIFEROL VIT D3 1,000 UNITS TAB PO SCH (09:01)
[2016-07-08] MEDS: levETIRAcetam 500 MG TAB PO SCH ×2 (09:01→21:58)
[2016-07-08] MEDS: FAMOTIDINE 20 MG TAB PO SCH ×2 (09:01→21:58)
[2016-07-08] MEDS: POLYETHYLENE GLYCOL 3350 17 GM PKT PO SCH (09:19)
--- NOTE | 2016-07-08 14:34 | SOAPPROG ---
SOAP Progress Note Assessment/Plan: Assessment: 36 yo M s/p excision of a right temporal mass and perioperative cerebrovascular accident on 06/30/2016: * Left-sided hemiparesis and hemineglect. Initial FIM 47 on 07/07/16, improving, transfers now min A with PT on 07/08/16. Ambulated 15' 2 person max A. Dressing max A. Reduced sitting balance. Transfers max A. Bathing mod A. Continue.physical therapy and occupational therapy to optimize mobility and activities of daily living. Will initiate fluoxetine for motor recovery, starting 5 mg QD on 07/09/16. * Dysphagia and cognitive/communication issues. DD1 thin liq.; needs 1:1 feeding due to impulsivity. Anterior leak on L. 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 Decreased insight, safety awareness, , functional reading and writing, speed of processing, problem solving. Dysexecutive. Continue MOLDED RU[employer]ER [employer] CUTTER. * Insomnia & fatigue. SCD on L leg only. Melatonin tonight 07/08/16; consider trazodone. * Status post craniotomy and excision of brain tumor. Nursing care for wound healing. Continue dexamethasone taper per Neurosurgery. 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 Continue levetiracetam until followup by Neurosurgery. Seizure precautions. * Constipation. Continue senna and polyethylene glycol. * Prophylaxis. High risk for DVT. Continue low-dose prophylactic heparin. As he is also on dexamethasone,l continue famotidine as ordered by Neurosurgery for GI protection. * Pain control will be continued with hydrocodone/acetaminophen combination. He 's using it once per day. Primary care provider is Dr. Armenta. Follow-up with Neurosurgeon Dr. Hare in 2 weeks. Parents in [place] for next 6 months. 3 MIKI, 1/2 bath on first floor. 20 steps to 2nd floor. Anticipate 6 weeks LOS with tentative discharge 08/11/16. 07/08/16 14:28 Subjective: C/O fatigue. Say he did not sleep well. Requests SCD on on L leg; thinks he will sleep better. Denies pain, dyspnea, cough, f/d. Objective: Vital Signs Temp Pulse Resp BP Pulse Ox 36.9 C 48 L 16 93/52 L 97 07/08/16 07:18 07/08/16 07:18 07/08/16 07:18 07/08/16 07:18 07/08/16 07:18 Laboratory Results 07/06/16 06:30 07/07/16 07/08/16 07/09/16 05:59 05:59 05:59 Intake Total 1516 4450 476 Output Total 841 463 Balance 566 820 476 Physical Exam - Physical Exam General Appearance: WD/WN, alert, no apparent distress, thin Respiratory: normal breath sounds, No crackles, No rhonchi, No wheezing Cardiac/Chest: regular rate, rhythm, No edema Skin: normal color, warm/dry Extremities: No calf tenderness Neuro/Psych: alert, normal mood/affect, motor weakness (LUE & LLE) ICD10 Worksheet Patient Problems: Problems Problem Status Onset Neoplasm of brain causing mass effect on adjacent structures Acute
[2016-07-08] MEDS: DEXAMETHASONE 2 MG TAB PO SCH (16:59)
[2016-07-08] MEDS: ACETAMINOPHEN 325 MG TAB PO PRN (20:44)
[2016-07-08] MEDS ORDERED: MELATONIN 3 MG TAB PO SCH (21:00)
[2016-07-09] MEDS: HEPARIN 5,000 UNIT/0.5 ML SYR SC SCH ×4 (06:27→20:22)
[2016-07-09] MEDS ORDERED: FLUoxetine 20 MG CAP PO SCH ×2 (09:00→09:10)
[2016-07-09] MEDS ORDERED: FLUoxetine 10 MG CAP PO SCH (09:00)
[2016-07-09] MEDS: ACETAMINOPHEN 325 MG TAB PO PRN ×2 (09:11→15:35)
[2016-07-09] MEDS: levETIRAcetam 500 MG TAB PO SCH ×2 (09:11→20:22)
[2016-07-09] MEDS: CHOLECALCIFEROL VIT D3 1,000 UNITS TAB PO SCH (09:12)
[2016-07-09] MEDS: FAMOTIDINE 20 MG TAB PO SCH ×2 (09:12→20:22)
[2016-07-09] MEDS: POLYETHYLENE GLYCOL 3350 17 GM PKT PO SCH (09:12)
[2016-07-09] MEDS: FLUoxetine 10 MG CAP PO SCH (09:21)
--- NOTE | 2016-07-09 13:51 | SOAPPROG ---
SOAP Progress Note Assessment/Plan: Assessment: 36 yo M s/p excision of a right temporal mass and perioperative cerebrovascular accident on 06/30/2016: * Left-sided hemiparesis and hemineglect. Initial FIM 47 on 07/07/16, improving, transfers now min A with PT on 07/08/16. Ambulated 15' 2 person max A. Dressing max A. Reduced sitting balance. Transfers max A. Bathing mod A. Continue.physical therapy and occupational therapy to optimize mobility and activities of daily living. Will initiate fluoxetine for motor recovery, starting 10 mg QD on 07/09/16. * Dysphagia and cognitive/communication issues. DD1 thin liq.; needs 1:1 feeding due to impulsivity. Anterior leak on L. Continue TECHNICAL PROJECT LEAD * Cognitive deficits. Decreased insight, safety awareness, , functional reading and writing, speed of processing, problem solving. Dysexecutive. Continue TECHNICAL PROJECT LEAD. * Insomnia & fatigue. SCD on L leg only. Melatonin 07/08/16 was ineffective; trial of trazodone 07/09/16. * Status post craniotomy and excision of brain tumor. Nursing care for wound healing. Continue dexamethasone taper per Neurosurgery. 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 Continue levetiracetam until followup by Neurosurgery. Seizure precautions. * Constipation. Continue senna and polyethylene glycol. * Prophylaxis. High risk for DVT. Change to enoxaparin from heparin per his request to not have shots TID. As he is also on dexamethasone. Continue famotidine as ordered by Neurosurgery for GI protection. * Pain control will be continued with hydrocodone/acetaminophen combination. He 's using it once per day. Primary care provider is Dr. Armenta. Follow-up with Neurosurgeon Dr. Hare in 2 weeks. Parents in [place] for next 6 months. 3 MIKI, 1/2 bath on first floor. 20 steps to 2nd floor. Anticipate 6 weeks LOS with tentative discharge 08/11/16. 07/09/16 13:48 Subjective: would rather not have shots TID. Asks how we know he had a stroke. Reports poor sleep last night and fatigue today. No cough/dyspnea, f/c. Objective: Vital Signs Temp Pulse Resp BP Pulse Ox 37.1 C 61 16 95/50 L 95 07/09/16 06:32 07/09/16 06:32 07/09/16 06:32 07/09/16 06:32 07/09/16 06:32 Laboratory Results 07/06/16 06:30 07/08/16 07/09/16 07/10/16 05:59 05:59 05:59 Intake Total 1770 476 840 Output Total 950 1050 300 Balance 820 -577 540 Physical Exam - Physical Exam General Appearance: WD/WN, alert, no apparent distress, thin Respiratory: No respiratory distress, No accessory muscle use Cardiac/Chest: No edema Skin: normal color, warm/dry Neuro/Psych: alert, normal mood/affect, motor weakness (LUE and LLE) ICD10 Worksheet Patient Problems: Problems Problem Status Onset Neoplasm of brain causing mass effect on adjacent structures Acute
[2016-07-09] MEDS: DEXAMETHASONE 2 MG TAB PO SCH (15:35)
[2016-07-09] MEDS: traZODone 50 MG TAB PO SCH (20:22)
[2016-07-09] MEDS: HYDROCODONE/APAP 10/325 TAB PO PRN (20:22)
[2016-07-10] MEDS: levETIRAcetam 500 MG TAB PO SCH ×2 (08:00→20:01)
[2016-07-10] MEDS: FAMOTIDINE 20 MG TAB PO SCH ×2 (08:00→20:01)
[2016-07-10] MEDS: ACETAMINOPHEN 325 MG TAB PO PRN ×2 (08:00→12:00)
[2016-07-10] MEDS: SENNOSIDES 1 TAB PO PRN (08:01)
[2016-07-10] MEDS: ENOXAPARIN 40 MG/0.4 ML SYR SC SCH (08:01)
[2016-07-10] MEDS: CHOLECALCIFEROL VIT D3 1,000 UNITS TAB PO SCH (08:01)
[2016-07-10] MEDS: POLYETHYLENE GLYCOL 3350 17 GM PKT PO SCH (08:01)
--- NOTE | 2016-07-10 11:13 | SOAPPROG ---
SOAP Progress Note Assessment/Plan: Assessment: 36 yo M s/p excision of a right temporal mass and perioperative cerebrovascular accident on 06/30/2016: 07/13/2016- doing well, went over all meds with patient and father. Discussed possible L AFO with PT, will trial today. His fatigue is better today, but still present, after better sleep on trazodone. Dense left arturo. 25 min was spent on the floor in the care of the patient, the majority was spent in the counseling and coordination of care regarding medications and therapy goals. No changes to plan, monitor fatigue today and consider if related to low BP (not orthostatic, normal for pt per his report). * Left-sided hemiparesis and hemineglect. Initial FIM 47 on 07/07/16, improving, transfers now min A with PT on 07/08/16. Ambulated 15' 2 person max A. Dressing max A. Reduced sitting balance. Transfers max A. Bathing mod A. Continue.physical therapy and occupational therapy to optimize mobility and activities of daily living. Will initiate fluoxetine for motor recovery, starting 10 mg QD on 07/09/16. * Dysphagia and cognitive/communication issues. DD1 thin liq.; needs 1:1 feeding due to impulsivity. Anterior leak on L. Continue ENGLISH DIVISION CHAIR * Cognitive deficits. Decreased insight, safety awareness, , functional reading and writing, speed of processing, problem solving. Dysexecutive. Continue ENGLISH DIVISION CHAIR. * Insomnia & fatigue. SCD on L leg only. Melatonin 07/08/16 was ineffective; trial of trazodone 07/09/16. * Status post craniotomy and excision of brain tumor. Nursing care for wound healing. Continue dexamethasone taper per Neurosurgery. 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 Continue levetiracetam until followup by Neurosurgery. Seizure precautions. * Constipation. Continue senna and polyethylene glycol. * Prophylaxis. High risk for DVT. Change to enoxaparin from heparin per his request to not have shots TID. As he is also on dexamethasone. Continue famotidine as ordered by Neurosurgery for GI protection. * Pain control will be continued with hydrocodone/acetaminophen combination. He 's using it once per day. Primary care provider is Dr. Armenta. Follow-up with Neurosurgeon Dr. Hare in 2 weeks. Parents in [place] for next 6 months. 3 MIKI, 1/2 bath on first floor. 20 steps to 2nd floor. Anticipate 6 weeks LOS with tentative discharge 08/11/16. 07/10/16 11:10 Subjective: CC: drowsiness No acute events overnight. slept better, had a hard time participating in therapies yesterday due to poor sleep and drowsiness. Today improved after trazodone last night. Father with many questions about medications, reviewed with him in detail. Denies lightheadedness or dizziness on standing. Notes that SBP in 90's is his norm premorbidly. No new numbness, tingling or weakness. Objective: Vital Signs Temp Pulse Resp BP Pulse Ox 36.7 C 60 16 95/58 L 97 07/10/16 08:00 07/10/16 08:00 07/10/16 08:00 07/10/16 08:00 07/10/16 08:00 Laboratory Results 07/06/16 06:30 07/09/16 07/10/16 07/11/16 05:59 05:59 05:59 Intake Total 476 1848 660 Output Total 1050 1200 Balance -574 648 660 Physical Exam - Physical Exam General Appearance: alert (but a bit drowsy), no apparent distress EENT: No scleral icterus (R), No scleral icterus (L) Respiratory: No respiratory distress, No accessory muscle use Cardiac/Chest: normal peripheral pulses, regular rate, rhythm, No edema Skin: normal color, warm/dry Extremities: No swelling Neuro/Psych: alert, normal mood/affect, motor weakness (dense left arturo, 0/5 upper and lower limbs, no spasticity. 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
[2016-07-10] MEDS: FLUoxetine 10 MG CAP PO SCH (12:00)
[2016-07-10] MEDS: DEXAMETHASONE 2 MG TAB PO SCH (15:35)
[2016-07-10] MEDS: traZODone 50 MG TAB PO SCH (20:01)
[2016-07-10] MEDS: HYDROCODONE/APAP 10/325 TAB PO PRN (20:01)
[2016-07-11] MEDS: CHOLECALCIFEROL VIT D3 1,000 UNITS TAB PO SCH (08:44)
[2016-07-11] MEDS: POLYETHYLENE GLYCOL 3350 17 GM PKT PO SCH (08:44)
[2016-07-11] MEDS: levETIRAcetam 500 MG TAB PO SCH ×2 (08:45→20:01)
[2016-07-11] MEDS: FLUoxetine 10 MG CAP PO SCH (08:45)
[2016-07-11] MEDS: FAMOTIDINE 20 MG TAB PO SCH (08:45)
[2016-07-11] MEDS: SENNOSIDES 1 TAB PO PRN (08:51)
[2016-07-11] MEDS: ENOXAPARIN 40 MG/0.4 ML SYR SC SCH (10:31)
--- NOTE | 2016-07-11 14:42 | SOAPPROG ---
SOAP Progress Note Assessment/Plan: Assessment: 36 yo M s/p excision of a right temporal mass and perioperative cerebrovascular accident on 06/30/2016: * Left-sided hemiparesis and hemineglect. Initial FIM 47 on 07/07/16, improving, transfers now min A with PT on 07/08/16. Ambulated 15' 2 person max A. Dressing max A. Reduced sitting balance. Transfers max A. Bathing mod A. Continue.physical therapy and occupational therapy to optimize mobility and activities of daily living. Initiated fluoxetine for motor recovery, starting 10 mg QD on 07/09/16. Tolerating; increase to 20 mg QD on 07/12/16. * Dysphagia and cognitive/communication issues. DD1 thin liq.; needs 1:1 feeding due to impulsivity. Anterior leak on L; improving awareness noted . Continue CYBER INCIDENT ANALYST * Cognitive deficits. Decreased insight, safety awareness, , functional reading and writing, speed of processing, problem solving. Dysexecutive. Continue CYBER INCIDENT ANALYST. * Insomnia & fatigue. SCD on L leg only. Melatonin 07/08/16 was ineffective; sleeping well with trazodone since 07/09/16. * Status post craniotomy and excision of brain tumor. Nursing care for wound healing. Completed dexamethasone taper 07/11/16. Will d/c famotidine. 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 Continue levetiracetam until followup by Neurosurgery. Seizure precautions. * Constipation. Continue senna and polyethylene glycol. * Prophylaxis. High risk for DVT. Change to enoxaparin from heparin per his request to not have shots TID. Completed dexamethasone; d/c famotidine. * Pain control will be continued with hydrocodone/acetaminophen combination. He 's using it once per day. Primary care provider is Dr. Armenta. Follow-up with Neurosurgeon Dr. Hare week of 02/20/17. Parents in [place] for next 6 months. 3 MIKI, 1/2 bath on first floor. 20 steps to 2nd floor. Anticipate 6 weeks LOS with tentative discharge 08/11/16. 07/11/16 14:37 Subjective: No complaints. Slept well. Working on ambulating with PT. Objective: Vital Signs Temp Pulse Resp BP Pulse Ox 37.0 C 61 16 96/51 L 99 07/11/16 08:00 07/11/16 08:00 07/11/16 08:00 07/11/16 08:00 07/11/16 08:00 Laboratory Results 07/06/16 06:30 07/10/16 07/11/16 07/12/16 05:59 05:59 05:59 Intake Total 1848 2040 380 Output Total 1200 850 600 Balance 648 1190 -220 Physical Exam - Physical Exam General Appearance: WD/WN, alert, no apparent distress, thin Respiratory: No respiratory distress, No accessory muscle use Skin: normal color, warm/dry Neuro/Psych: alert, normal mood/affect, oriented x 3, abnormal gait (Ambulating at rail with assist of 2 PTs. Able to weight-bear on LLE with foot and knee blocking by PT; able to initiate forward swing LLE independently but often needs assistance for step-through. Bearing partial weight with RUE on rail.), motor weakness (LUE & LLE) ICD10 Worksheet Patient Problems: Problems Problem Status Onset Drowsiness Acute Hemiplegia affecting left nondominant side Acute Neoplasm of brain causing mass effect on adjacent structures Acute
[2016-07-11] MEDS: ACETAMINOPHEN 325 MG TAB PO PRN (17:53)
[2016-07-11] MEDS: traZODone 50 MG TAB PO SCH (20:01)
[2016-07-12] MEDS: ENOXAPARIN 40 MG/0.4 ML SYR SC SCH (09:17)
[2016-07-12] MEDS: levETIRAcetam 500 MG TAB PO SCH ×2 (09:17→20:49)
[2016-07-12] MEDS: CHOLECALCIFEROL VIT D3 1,000 UNITS TAB PO SCH (09:17)
[2016-07-12] MEDS: FLUoxetine 10 MG CAP PO SCH (09:17)
--- NOTE | 2016-07-12 11:50 | SOAPPROG ---
SOAP Progress Note Assessment/Plan: Assessment: 36 yo M s/p excision of a right temporal mass and perioperative cerebrovascular accident on 06/30/2016: * Left-sided hemiparesis and hemineglect. D/W FAMILY THIS AM TO REINFORCE MENTAL IMAGING FOR LUE,LLE MOVEMENT Initial FIM 47 on 07/07/16, improving, transfers now min A with PT on 07/08/16. Ambulated 15' 2 person max A. Dressing max A. Reduced sitting balance. Transfers max A. Bathing mod A. Continue.physical therapy and occupational therapy to optimize mobility and activities of daily living. Initiated fluoxetine for motor recovery, starting 10 mg QD on 07/09/16. Tolerating; increase to 20 mg QD on 07/12/16. * Dysphagia and cognitive/communication issues. ST WORKING WITH HIM THIS AM. DOING WELL WITH REGULAR DIET THIS AM. DD1 thin liq.; needs 1:1 feeding due to impulsivity. Anterior leak on L; improving awareness noted 07/11/16. Continue INTELLIGENCE DIRECTOR * Cognitive deficits. Decreased insight, safety awareness, , functional reading and writing, speed of processing, problem solving. Dysexecutive. Continue INTELLIGENCE DIRECTOR. * Insomnia & fatigue. PATIENT REPORTS FEELING TIRED THIS AM BUT DO NOT WANT TO GIVE MEDS THAT MAY DECREASE COGNITION. . Melatonin 07/08/16 was ineffective; sleeping well with trazodone since 07/09/16. * Status post craniotomy and excision of brain tumor. Nursing care for wound healing. Completed dexamethasone taper 07/11/16. Will d/c famotidine. 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 Continue levetiracetam until followup by Neurosurgery. Seizure precautions. * Constipation. Continue senna and polyethylene glycol. * Prophylaxis. High risk for DVT. Change to enoxaparin from heparin per his request to not have shots TID. Completed dexamethasone; d/c famotidine. * Pain control will be continued with hydrocodone/acetaminophen combination. He 's using it once per day. Plan: 07/12/16 11:46 Subjective: he c/o feeling tired Objective: Vital Signs Temp Pulse Resp BP Pulse Ox 37.0 C 58 L 16 89/44 L 97 07/12/16 08:00 07/12/16 08:00 07/12/16 08:00 07/12/16 08:00 07/12/16 08:00 Laboratory Results 07/06/16 06:30 07/11/16 07/12/16 07/13/16 05:59 05:59 05:59 Intake Total 2040 1910 700 Output Total 850 1300 Balance 1190 610 700 Physical Exam - Physical Exam General Appearance: WD/WN, alert, no apparent distress EENT: PERRL/EOMI, No EOM palsy Respiratory: chest non-tender, lungs clear, normal breath sounds Cardiac/Chest: No edema Abdomen: normal bowel sounds, non-tender, soft Skin: normal color, warm/dry Neuro/Psych: alert, normal mood/affect, oriented x 3 (left hemiparesis, dense. ), motor weakness, No no motor/sensory deficits ICD10 Worksheet Patient Problems: Problems Problem Status Onset Drowsiness Acute Hemiplegia affecting left nondominant side Acute Neoplasm of brain causing mass effect on adjacent structures Acute
[2016-07-12] MEDS: POLYETHYLENE GLYCOL 3350 17 GM PKT PO SCH (12:30)
[2016-07-12] MEDS: HYDROCODONE/APAP 10/325 TAB PO PRN (20:48)
[2016-07-12] MEDS: traZODone 50 MG TAB PO SCH (20:48)
[2016-07-13] MEDS: CHOLECALCIFEROL VIT D3 1,000 UNITS TAB PO SCH (08:55)
[2016-07-13] MEDS: levETIRAcetam 500 MG TAB PO SCH ×2 (08:56→20:20)
[2016-07-13] MEDS: SENNOSIDES 1 TAB PO PRN (08:59)
[2016-07-13] MEDS: POLYETHYLENE GLYCOL 3350 17 GM PKT PO SCH (09:00)
[2016-07-13] MEDS: ENOXAPARIN 40 MG/0.4 ML SYR SC SCH (09:52)
[2016-07-13] MEDS: FLUoxetine 10 MG CAP PO SCH (09:56)
--- NOTE | 2016-07-13 10:18 | SOAPPROG ---
SOAP Progress Note Assessment/Plan: Assessment: 36 yo M s/p excision of a right temporal mass and perioperative cerebrovascular accident on 06/30/2016: * Left-sided hemiparesis and hemineglect. D/W FAMILY THIS AM TO REINFORCE MENTAL IMAGING FOR LUE,LLE MOVEMENT Initial FIM 47 on 07/07/16, improving, transfers now min A with PT on 07/08/16. Ambulated 15' 2 person max A. Dressing max A. Reduced sitting balance. Transfers max A. Bathing mod A. Continue.physical therapy and occupational therapy to optimize mobility and activities of daily living. Initiated fluoxetine for motor recovery, starting 10 mg QD on 07/09/16. Tolerating; increase to 20 mg QD on 07/12/16. * Dysphagia and cognitive/communication issues. ST WORKING WITH HIM THIS AM. DOING WELL WITH D2 thin liq.; needs 1:1 feeding due to impulsivity. Anterior leak on L; improving awareness noted 07/11/16. Continue ENTRANCE GUARD * Cognitive deficits. Decreased insight, safety awareness, , functional reading and writing, speed of processing, problem solving. Dysexecutive. Continue ENTRANCE GUARD. * HYPOTENSION- BP THIS AM IS 81/45. WOULD LIKE TO D/W HIS NEUROSURGEON TO SEE IF THIS WOULD CAUSE CEREBRAL HYPOPERFUSION * Insomnia & fatigue. PATIENT REPORTS FEELING TIRED THIS AM BUT DO NOT WANT TO GIVE MEDS THAT MAY DECREASE COGNITION. . Melatonin 07/08/16 was ineffective; sleeping well with trazodone since 07/09/16. * Status post craniotomy and excision of brain tumor. Nursing care for wound healing. Completed dexamethasone taper 07/11/16. Will d/c famotidine. 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 Continue levetiracetam until followup by Neurosurgery. Seizure precautions. * Constipation. Continue senna and polyethylene glycol. * Prophylaxis. High risk for DVT. Change to enoxaparin from heparin per his request to not have shots TID. Completed dexamethasone; d/c famotidine. * Pain control - hydrocodone/acetaminophen -RENEWED TODAY. He's using it once per day. Plan: 07/12/16 11:46 07/13/16 10:19 Subjective: NO C/O per patient or nursing Objective: Vital Signs Temp Pulse Resp BP Pulse Ox 37.0 C 57 L 16 81/45 L 95 07/13/16 07:38 07/13/16 07:38 07/13/16 07:38 07/13/16 07:38 07/13/16 07:38 Laboratory Results 07/06/16 06:30 07/12/16 07/13/16 07/14/16 05:59 05:59 05:59 Intake Total 1910 2635 660 Output Total 1300 1775 Balance 610 860 660 Physical Exam - Physical Exam General Appearance: WD/WN, alert, no apparent distress EENT: other (while eating leaks food left anterior oral cavity) Respiratory: lungs clear, normal breath sounds Cardiac/Chest: No edema Abdomen: normal bowel sounds, non-tender Neuro/Psych: motor weakness (motor exam unchanged from previous) ICD10 Worksheet Patient Problems: Problems Problem Status Onset Drowsiness Acute Hemiplegia affecting left nondominant side Acute Neoplasm of brain causing mass effect on adjacent structures Acute
[2016-07-13] MEDS: traZODone 50 MG TAB PO SCH (20:20)
[2016-07-13] MEDS: HYDROCODONE/APAP 10/325 TAB PO PRN (20:20)
[2016-07-13] MEDS ORDERED: 1/2 NS 1,000 ML IV ONE (21:30)
[2016-07-14] MEDS: CHOLECALCIFEROL VIT D3 1,000 UNITS TAB PO SCH (09:04)
[2016-07-14] MEDS: FLUoxetine 10 MG CAP PO SCH (09:04)
[2016-07-14] MEDS: ENOXAPARIN 40 MG/0.4 ML SYR SC SCH (09:05)
[2016-07-14] MEDS: levETIRAcetam 500 MG TAB PO SCH ×2 (09:06→20:23)
[2016-07-14] MEDS: POLYETHYLENE GLYCOL 3350 17 GM PKT PO SCH (09:06)
--- NOTE | 2016-07-14 12:29 | SOAPPROG ---
SOAP Progress Note Assessment/Plan: Assessment: 36 yo M s/p excision of a right temporal mass and perioperative cerebrovascular accident on 06/30/2016: * Left-sided hemiparesis and hemineglect. D/W FAMILY THIS AM TO REINFORCE MENTAL IMAGING FOR LUE,LLE MOVEMENT Initial FIM 47 on 07/07/16. FIM SCORE TODAY 58. GAIT 10 FEET X2 PARTIAL ASSIST. SIT TO STAND MIN ASSIST. LEFT SIDED NEGLECT.NEEDS 1 TO 1 SUP WITH MEALS. Initiated fluoxetine for motor recovery, starting 10 mg QD on 07/09/16. Tolerating; increase to 20 mg QD on 07/12/16. * Dysphagia and cognitive/communication issues. ST WORKING WITH HIM THIS AM. DOING WELL WITH D2 thin liq.; needs 1:1 feeding due to impulsivity. Anterior leak on L; improving awareness noted 07/11/16. Continue AUCTIONEER AUTOMOBILE * Cognitive deficits. Decreased insight, safety awareness, , functional reading and writing, speed of processing, problem solving. Dysexecutive. Continue AUCTIONEER AUTOMOBILE. * HYPOTENSION- BP THIS AM IMPROVED TO 94/50 THIS AM. WOULD LIKE TO D/W HIS NEUROSURGEON TO SEE IF THIS WOULD CAUSE CEREBRAL HYPOPERFUSION AND/OR IMPAIRED NEUROLOG RECOVERY * Insomnia & fatigue. PATIENT REPORTS FEELING TIRED THIS AM BUT DO NOT WANT TO GIVE MEDS THAT MAY DECREASE COGNITION. . Melatonin 07/08/16 was ineffective; sleeping well with trazodone since 07/09/16. * Status post craniotomy and excision of brain tumor. Nursing care for wound healing. Completed dexamethasone taper 07/11/16. Will d/c famotidine. 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 Continue levetiracetam until followup by Neurosurgery. Seizure precautions. * Constipation. Continue senna and polyethylene glycol. * Prophylaxis. High risk for DVT. Change to enoxaparin from heparin per his request to not have shots TID. Completed dexamethasone; d/c famotidine. * Pain control - hydrocodone/acetaminophen -RENEWED TODAY. He's using it once per day. * 20 MIN TEAM MEETING TODAY-PLEASE SEE SEPARATE STAFFING NOTE COMPLETED BY THIS EXAMINER Plan: 07/12/16 11:46 07/13/16 10:19 07/14/16 12:30 Subjective: Called by nursing last pm for BP 77/40. IVFs 1/2 NLS started at 60 cc/hr last evening. He reports he is feeling better since beginning IVFs last pm. Objective: Vital Signs Temp Pulse Resp BP Pulse Ox 36.6 C 56 L 16 86/41 L 96 07/14/16 05:49 07/14/16 05:49 07/14/16 05:49 07/14/16 05:49 07/14/16 05:49 Laboratory Results 07/06/16 06:30 07/13/16 07/14/16 07/15/16 05:59 05:59 05:59 Intake Total 2635 2141 840 Output Total 1775 1075 Balance 860 1066 840 Physical Exam - Physical Exam General Appearance: WD/WN, alert, no apparent distress Respiratory: chest non-tender, lungs clear, normal breath sounds Cardiac/Chest: No edema Abdomen: normal bowel sounds, non-tender, soft Skin: normal color, warm/dry, No diaphoresis, No pallor Extremities: No swelling, No Sonido's sign Neuro/Psych: alert, motor weakness (LUE/LLE MOTOR EXAM UNCHANGED FROM PREVIOUS) , cognition abnormalities, speech abnormalities ICD10 Worksheet Patient Problems: Problems Problem Status Onset Drowsiness Acute Hemiplegia affecting left nondominant side Acute Neoplasm of brain causing mass effect on adjacent structures Acute
[2016-07-14] MEDS: traZODone 50 MG TAB PO SCH (20:23)
[2016-07-15] MEDS: FLUoxetine 10 MG CAP PO SCH (08:49)
[2016-07-15] MEDS: CHOLECALCIFEROL VIT D3 1,000 UNITS TAB PO SCH (08:49)
[2016-07-15] MEDS: ENOXAPARIN 40 MG/0.4 ML SYR SC SCH (08:49)
[2016-07-15] MEDS: POLYETHYLENE GLYCOL 3350 17 GM PKT PO SCH (08:50)
[2016-07-15] MEDS: levETIRAcetam 500 MG TAB PO SCH ×2 (08:50→21:09)
--- NOTE | 2016-07-15 14:49 | SOAPPROG ---
SOAP Progress Note Assessment/Plan: Assessment: 36 yo M s/p excision of a right temporal mass and perioperative cerebrovascular accident on 06/30/2016: * Left-sided hemiparesis and hemineglect. Initial FIM 47 on 07/07/16, improved to 58 on 07/14/16Walked 10' X 2. Sit to stand min A. L hemineglect. Continue.physical therapy and occupational therapy to optimize mobility and activities of daily living. Initiated fluoxetine for motor recovery, starting 10 mg QD on 07/09/16. Tolerating; increase to 20 mg QD on 07/12/16. * Dysphagia and cognitive/communication issues. Initially DD1 thin liq., advanced to DD2; needs 1:1 feeding due to impulsivity. Anterior leak on L; improving awareness noted 07/11/16. Continue BRAND ATTENDANT * Cognitive deficits. Decreased insight, safety awareness, , functional reading and writing, speed of processing, problem solving. Dysexecutive. Continue BRAND ATTENDANT. * Insomnia & fatigue. SCD on L leg only. Melatonin 07/08/16 was ineffective; sleeping well with trazodone since 07/09/16. * Hypotension: asymptomatic, no need to intervene. MOnitor for symptoms. * Status post craniotomy and excision of brain tumor. Nursing care for wound healing. Completed dexamethasone taper 07/11/16. Will d/c famotidine. 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 Continue levetiracetam until followup by Neurosurgery. Seizure precautions. * Constipation. Continue senna and polyethylene glycol. * Prophylaxis. High risk for DVT. Change to enoxaparin from heparin per his request to not have shots TID. Completed dexamethasone; d/c famotidine. * Pain control will be continued with hydrocodone/acetaminophen combination. He 's using it once per day. Primary care provider is Dr. Armenta. Follow-up with Neurosurgeon Dr. Hare week of 07/21/16. Parents from [place] in [place] for next 6 months. 3 MIKI, 1/2 bath on first floor. 20 steps to 2nd floor. Anticipate 6 weeks LOS with tentative discharge 08/11/16. 07/15/16 14:46 Subjective: Denies symptoms of dizziness or lightheadedness. Still c/o fatigue. Sleeping better. No f/c, cough/dyspnea. Objective: Vital Signs Temp Pulse Resp BP Pulse Ox 36.2 C 79 16 92/57 L 95 07/15/16 08:00 07/15/16 14:26 07/15/16 08:00 07/15/16 14:26 07/15/16 14:26 Laboratory Results 07/06/16 06:30 07/14/16 07/15/16 07/16/16 05:59 05:59 05:59 Intake Total 2141 2625 2210 Output Total 1075 1375 Balance 1066 1250 2210 Physical Exam - Physical Exam General Appearance: WD/WN, alert, no apparent distress, thin Respiratory: normal breath sounds, No crackles, No rhonchi, No wheezing Cardiac/Chest: regular rate, rhythm Skin: normal color, warm/dry Neuro/Psych: alert, normal mood/affect, motor weakness (RUE & RLE. Ambulating with assist of 2 with PT, to move L leg and to block knee & ankle to support weight.) ICD10 Worksheet Patient Problems: Problems Problem Status Onset Drowsiness Acute Hemiplegia affecting left nondominant side Acute Neoplasm of brain causing mass effect on adjacent structures Acute
[2016-07-15] MEDS: traZODone 50 MG TAB PO SCH (21:09)
[2016-07-16] MEDS: CHOLECALCIFEROL VIT D3 1,000 UNITS TAB PO SCH (09:42)
[2016-07-16] MEDS: ENOXAPARIN 40 MG/0.4 ML SYR SC SCH (09:43)
[2016-07-16] MEDS: POLYETHYLENE GLYCOL 3350 17 GM PKT PO SCH (09:43)
[2016-07-16] MEDS: levETIRAcetam 500 MG TAB PO SCH ×2 (09:43→20:07)
[2016-07-16] MEDS: FLUoxetine 10 MG CAP PO SCH (09:43)
--- NOTE | 2016-07-16 12:55 | SOAPPROG ---
SOAP Progress Note Assessment/Plan: Assessment: 36 yo M s/p excision of a right temporal mass and perioperative cerebrovascular accident on 06/30/2016: * Left-sided hemiparesis and hemineglect. Initial FIM 47 on 07/07/16, improved to 58 on 07/14/16. Walked 10' X 2. Sit to stand min A. L hemineglect. Continue.physical therapy and occupational therapy to optimize mobility and activities of daily living. Initiated fluoxetine for motor recovery, starting 10 mg QD on 07/09/16. Tolerating; increase to 20 mg QD on 07/12/16. * Dysphagia and cognitive/communication issues. Initially DD1 thin liq., advanced to DD2; needs 1:1 feeding due to impulsivity. Anterior leak on L; improving awareness noted 07/11/16. Continue CRAB BUTCHER * Cognitive deficits. Decreased insight, safety awareness, functional reading and writing, speed of processing, problem solving. Dysexecutive. Continue CRAB BUTCHER. * Insomnia & fatigue. SCD on L leg only. Melatonin 07/08/16 was ineffective; sleeping better with trazodone since 07/09/16 but still not adequate. Hesitate to add hypnotic given deficits due to craniotomy and CVA. Discussed sleep hygiene. * Hypotension: symptomatic? Orthostatic by pulse. Appears to have adequate hydration per recorded I&O. Check BMP and TSH. * Status post craniotomy and excision of brain tumor. Nursing care for wound healing. Completed dexamethasone taper 07/11/16. Will d/c famotidine. 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 Continue levetiracetam until followup by Neurosurgery. Seizure precautions. * Constipation. Continue senna and polyethylene glycol. * Prophylaxis. High risk for DVT. Change to enoxaparin from heparin per his request to not have shots TID. Completed dexamethasone; d/c famotidine. * Pain control will be continued with hydrocodone/acetaminophen combination. He 's using it once per day. Primary care provider is Dr. Armenta. Follow-up with Neurosurgeon Dr. Hare week of 07/21/16. Parents from [place] in [place] for next 6 months. 3 MIKI, 1/2 bath on first floor. 20 steps to 2nd floor. Anticipate 6 weeks LOS with tentative discharge 08/11/16. 07/16/16 12:58 Subjective: C/O fatigue. Says he's had fatigue since October and his doctor told him it was due to "midlife crisis." Says he feels more tired when he stands. Did not sleep well last night. Objective: Vital Signs Temp Pulse Resp BP Pulse Ox 36.9 C 69 16 79/58 L 95 07/16/16 07:52 07/16/16 10:00 07/16/16 07:52 07/16/16 10:00 07/16/16 07:52 Laboratory Results 07/06/16 06:30 07/15/16 07/16/16 07/17/16 05:59 05:59 05:59 Intake Total 2625 3690 Output Total 1375 1600 Balance 1250 2090 Physical Exam - Physical Exam General Appearance: WD/WN, alert, no apparent distress, thin Respiratory: No respiratory distress, No accessory muscle use Cardiac/Chest: No edema Neuro/Psych: alert, normal mood/affect, oriented x 3, abnormal gait (Ambulates in [place] quad cane on R, PT assisting L leg swing and blocking L knee.), motor weakness (LUE & LLE) ICD10 Worksheet Patient Problems: Problems Problem Status Onset Drowsiness Acute Hemiplegia affecting left nondominant side Acute Neoplasm of brain causing mass effect on adjacent structures Acute
[2016-07-16 15:23] LABS: ANION GAP 11 mEq/L (8-16); CALCIUM 8.9 mg/dL (8.5-10.4); CARBON DIOXIDE 28 mEq/l (22-31); CHLORIDE 98 mEq/L (97-110); CREATININE 0.7 mg/dL (0.7-1.3); GLOMERULAR FILTRATION RATE > 60; GLUCOSE 106 mg/dL (70-100); POTASSIUM 4.3 mEq/L (3.5-5.2); SODIUM 137 mEq/L (134-144)
[2016-07-16] MEDS: traZODone 50 MG TAB PO SCH (20:07)
[2016-07-17] MEDS: ENOXAPARIN 40 MG/0.4 ML SYR SC SCH (07:43)
[2016-07-17] MEDS: CHOLECALCIFEROL VIT D3 1,000 UNITS TAB PO SCH (08:02)
[2016-07-17] MEDS: POLYETHYLENE GLYCOL 3350 17 GM PKT PO SCH (08:02)
[2016-07-17] MEDS: levETIRAcetam 500 MG TAB PO SCH ×2 (08:02→20:48)
--- NOTE | 2016-07-17 10:19 | SOAPPROG ---
SOAP Progress Note Assessment/Plan: Assessment: 36 yo M s/p excision of a right temporal mass and perioperative cerebrovascular accident on 06/30/2016: * Left-sided hemiparesis and hemineglect. Initial FIM 47 on 07/07/16, improved to 58 on 07/14/16. Walked 10' X 2. Sit to stand min A. L hemineglect. Continue.physical therapy and occupational therapy to optimize mobility and activities of daily living. Initiated fluoxetine for motor recovery, starting 10 mg QD on 07/09/16. Tolerating; increase to 20 mg QD on 07/12/16. * FATIGUE: TSH 2.22. CONSIDER NEUROSTIMULANT. * Dysphagia and cognitive/communication issues. Initially DD1 thin liq., advanced to DD2; needs 1:1 feeding due to impulsivity. Anterior leak on L; improving awareness noted 07/11/16. Continue FRONT DESK OFFICER * Cognitive deficits. Decreased insight, safety awareness, functional reading and writing, speed of processing, problem solving. Dysexecutive. Continue FRONT DESK OFFICER. * Insomnia & fatigue. SCD on L leg only. Melatonin 07/08/16 was ineffective; sleeping better with trazodone since 07/09/16 but still not adequate. Hesitate to add hypnotic given deficits due to craniotomy and CVA. Discussed sleep hygiene. * Hypotension: BP THIS AM 89/56. BUN/CR FROM 07/16/16 WAS 20/0.7 * Status post craniotomy and excision of brain tumor. Nursing care for wound healing. Completed dexamethasone taper 07/11/16. Will d/c famotidine. 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 Continue levetiracetam until followup by Neurosurgery. Seizure precautions. * Constipation. Continue senna and polyethylene glycol. * Prophylaxis. High risk for DVT. Change to enoxaparin from heparin per his request to not have shots TID. Completed dexamethasone; d/c famotidine. * Pain control will be continued with hydrocodone/acetaminophen combination. He 's using it once per day. Plan: 07/12/16 11:46 07/13/16 10:19 07/14/16 12:30 07/17/16 10:21 Subjective: He reports feeling fatigued. His physical therapist states it is not interfering with his therapy session this am. Objective: Vital Signs Temp Pulse Resp BP Pulse Ox 36.9 C 69 16 89/56 L 94 07/17/16 07:41 07/17/16 07:41 07/17/16 07:41 07/17/16 07:41 07/17/16 07:41 Laboratory Results 07/16/16 13:35 07/16/16 07/17/16 07/18/16 05:59 05:59 05:59 Intake Total 3690 470 645 Output Total 1600 Balance 2090 470 645 Physical Exam - Physical Exam General Appearance: WD/WN, alert Neck: non-tender Respiratory: lungs clear, normal breath sounds Cardiac/Chest: No edema, No JVD Abdomen: normal bowel sounds, non-tender, soft Skin: warm/dry Extremities: other (Mild left shoulder subluxation) Neuro/Psych: alert (left sided neglect. Left hemiparesis.), motor weakness, cognition abnormalities ICD10 Worksheet Patient Problems: Problems Problem Status Onset Drowsiness Acute Hemiplegia affecting left nondominant side Acute Neoplasm of brain causing mass effect on adjacent structures Acute
[2016-07-17] MEDS: FLUoxetine 20 MG CAP PO SCH (11:08)
[2016-07-17] MEDS: traZODone 50 MG TAB PO SCH (20:49)
[2016-07-17] MEDS: HYDROCODONE/APAP 10/325 TAB PO PRN (20:49)
[2016-07-18] MEDS: POLYETHYLENE GLYCOL 3350 17 GM PKT PO SCH (09:20)
[2016-07-18] MEDS: levETIRAcetam 500 MG TAB PO SCH ×2 (09:22→20:52)
[2016-07-18] MEDS: FLUoxetine 20 MG CAP PO SCH (09:26)
[2016-07-18] MEDS: CHOLECALCIFEROL VIT D3 1,000 UNITS TAB PO SCH (09:26)
[2016-07-18] MEDS: ENOXAPARIN 40 MG/0.4 ML SYR SC SCH (09:27)
[2016-07-18] MEDS: SENNOSIDES 1 TAB PO PRN (09:27)
--- NOTE | 2016-07-18 12:08 | SOAPPROG ---
SOAP Progress Note Assessment/Plan: Assessment: 36 yo M s/p excision of a right temporal mass and perioperative cerebrovascular accident on 06/30/2016: * Left-sided hemiparesis and hemineglect. Initial FIM 47 on 07/07/16, improved to 58 on 07/14/16. Walked 10' X 2. Sit to stand min A. L hemineglect. Continue.physical therapy and occupational therapy to optimize mobility and activities of daily living. Initiated fluoxetine for motor recovery, starting 10 mg QD on 07/09/16. Tolerating; increase to 20 mg QD on 07/17/16. * Dysphagia and cognitive/communication issues. Initially DD1 thin liq., advanced to DD2; needs 1:1 feeding due to impulsivity. Anterior leak on L; improving awareness noted 07/11/16. Continue PIER MASTER ASSISTANT * Cognitive deficits. Decreased insight, safety awareness, functional reading and writing, speed of processing, problem solving. Dysexecutive. Continue PIER MASTER ASSISTANT. * Insomnia & fatigue. SCD on L leg only. Melatonin 07/08/16 was ineffective; sleeping better with trazodone since 07/09/16 but still not adequate. Hesitate to add hypnotic given deficits due to craniotomy and CVA. Discussed sleep hygiene; slept well 07/17/16.. * Hypotension: Asymptomatic. Orthostatic by pulse. Appears to have adequate hydration per recorded I&O. BMP and TSH wnl. * Status post craniotomy and excision of brain tumor. Nursing care for wound healing. Completed dexamethasone taper 07/11/16. Will d/c famotidine. 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 Continue levetiracetam until followup by Neurosurgery. Seizure precautions. * Constipation. Continue senna and polyethylene glycol. * Prophylaxis. High risk for DVT. Change to enoxaparin from heparin per his request to not have shots TID. Completed dexamethasone; d/c famotidine. * Pain control will be continued with hydrocodone/acetaminophen combination. He 's using it once per day. Primary care provider is Dr. Armenta. Follow-up with Neurosurgeon Dr. Hare week of 07/21/16. Parents from [place] in [place] for next 6 months. 3 MIKI, 1/2 bath on first floor. 20 steps to 2nd floor. Anticipate 6 weeks LOS with tentative discharge 08/11/16. 07/18/16 12:06 Subjective: Slept well, feeling better today. Wants to know if he can be on his computer and if he can listen to lectures. Objective: Vital Signs Temp Pulse Resp BP Pulse Ox 36.8 C 59 L 14 82/52 L 94 07/18/16 07:25 07/18/16 07:25 07/18/16 07:25 07/18/16 07:25 07/18/16 07:25 Laboratory Results 07/16/16 13:35 07/17/16 07/18/16 07/19/16 05:59 05:59 05:59 Intake Total 470 1568 400 Balance 470 1568 400 Physical Exam - Physical Exam General Appearance: WD/WN, alert, no apparent distress, thin Respiratory: normal breath sounds, No crackles, No rhonchi, No wheezing Cardiac/Chest: regular rate, rhythm, No edema Skin: normal color, warm/dry Neuro/Psych: alert, normal mood/affect, oriented x 3, motor weakness (LUE and LLE) ICD10 Worksheet Patient Problems: Problems Problem Status Onset Drowsiness Acute Hemiplegia affecting left nondominant side Acute Neoplasm of brain causing mass effect on adjacent structures Acute
[2016-07-18] MEDS: HYDROCODONE/APAP 10/325 TAB PO PRN (20:52)
[2016-07-18] MEDS: traZODone 50 MG TAB PO SCH (20:52)
[2016-07-18] MEDS: PETROLAT,WHT/MIN OIL/SOD CHL 3.5 GM OPHT.OINT EACHEYE PRN (20:53)
[2016-07-19] MEDS: levETIRAcetam 500 MG TAB PO SCH ×2 (08:20→20:55)
[2016-07-19] MEDS: POLYETHYLENE GLYCOL 3350 17 GM PKT PO SCH (08:21)
[2016-07-19] MEDS: CHOLECALCIFEROL VIT D3 1,000 UNITS TAB PO SCH (08:22)
[2016-07-19] MEDS: FLUoxetine 20 MG CAP PO SCH (08:22)
[2016-07-19] MEDS: ENOXAPARIN 40 MG/0.4 ML SYR SC SCH (08:22)
--- NOTE | 2016-07-19 16:12 | SOAPPROG ---
SOAP Progress Note Assessment/Plan: 36 yo M s/p excision of a right temporal mass and perioperative cerebrovascular accident on 06/30/2016: * Left-sided hemiparesis and hemineglect. Initial FIM 47 on 07/07/16, improved to 58 on 07/14/16. Walked 10' X 2. Sit to stand min A. L hemineglect. Continue.physical therapy and occupational therapy to optimize mobility and activities of daily living. Initiated fluoxetine for motor recovery, starting 10 mg QD on 07/09/16. Tolerating; increase to 20 mg QD on 07/17/16. * Dysphagia and cognitive/communication issues. Initially DD1 thin liq., advanced to DD2; needs 1:1 feeding due to impulsivity. Anterior leak on L; improving awareness noted 07/11/16. Continue PUBLIC HOUSING MANAGER * Cognitive deficits. Decreased insight, safety awareness, functional reading and writing, speed of processing, problem solving. Dysexecutive. Continue PUBLIC HOUSING MANAGER. * Insomnia & fatigue. SCD on L leg only. Melatonin 07/08/16 was ineffective; sleeping better with trazodone since 07/09/16 but still not adequate. Hesitate to add hypnotic given deficits due to craniotomy and CVA. Discussed sleep hygiene; slept well 07/17/16.. * Hypotension: Asymptomatic. Orthostatic by pulse. Appears to have adequate hydration per recorded I&O. BMP and TSH wnl. * Status post craniotomy and excision of brain tumor. Nursing care for wound healing. Completed dexamethasone taper 07/11/16. Will d/c famotidine. 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 Continue levetiracetam until followup by Neurosurgery. Seizure precautions. * Constipation. Continue senna and polyethylene glycol. * Prophylaxis. High risk for DVT. Change to enoxaparin from heparin per his request to not have shots TID. Completed dexamethasone; d/c famotidine. * Pain control will be continued with hydrocodone/acetaminophen combination. He 's using it once per day. Primary care provider is Dr. Armenta. Follow-up with Neurosurgeon Dr. Hare week of 07/21/16. Parents from [place] in [place] for next 6 months. 3 MIKI, 1/2 bath on first floor. 20 steps to 2nd floor. Anticipate 6 weeks LOS with tentative discharge 08/11/16. Subjective: No events. Complains of ongoing fatigue but denies pain/nausea/fevers. Objective: Vital Signs Temp Pulse Resp BP Pulse Ox 36.9 C 70 16 93/58 L 97 07/19/16 08:00 07/19/16 08:00 07/19/16 08:00 07/19/16 08:00 07/19/16 08:00 Laboratory Results 07/16/16 13:35 07/18/16 07/19/16 07/20/16 05:59 05:59 05:59 Intake Total 1568 1407 834 Balance 1568 1407 834 - Pending Discharge Pending Discharge Within 24 Hours: No Pending Discharge Within 48 Hours: No Physical Exam - Physical Exam General Appearance: alert, no apparent distress Neck: supple Respiratory: lungs clear, normal breath sounds Cardiac/Chest: regular rate, rhythm Abdomen: non-tender, soft Extremities: No pedal edema Neuro/Psych: alert, normal mood/affect, oriented x 3, cognition abnormalities, speech abnormalities ICD10 Worksheet Patient Problems: Problems Problem Status Onset Drowsiness Acute Hemiplegia affecting left nondominant side Acute Neoplasm of brain causing mass effect on adjacent structures Acute
[2016-07-19] MEDS: PETROLAT,WHT/MIN OIL/SOD CHL 3.5 GM OPHT.OINT EACHEYE PRN (20:56)
[2016-07-19] MEDS: traZODone 50 MG TAB PO SCH (20:56)
[2016-07-19] MEDS: HYDROCODONE/APAP 10/325 TAB PO PRN (20:56)
[2016-07-20] MEDS: ENOXAPARIN 40 MG/0.4 ML SYR SC SCH (07:39)
[2016-07-20] MEDS: CHOLECALCIFEROL VIT D3 1,000 UNITS TAB PO SCH (07:40)
[2016-07-20] MEDS: levETIRAcetam 500 MG TAB PO SCH ×2 (07:40→21:18)
[2016-07-20] MEDS: POLYETHYLENE GLYCOL 3350 17 GM PKT PO SCH (07:40)
[2016-07-20] MEDS: FLUoxetine 20 MG CAP PO SCH (07:41)
--- NOTE | 2016-07-20 09:25 | SOAPPROG ---
SOAP Progress Note Assessment/Plan: 36 yo M s/p excision of a right temporal mass and perioperative cerebrovascular accident on 06/30/2016: * Left-sided hemiparesis and hemineglect. Initial FIM 47 on 07/07/16, improved to 58 on 07/14/16. Walked 10' X 2. Sit to stand min A. L hemineglect. Continue.physical therapy and occupational therapy to optimize mobility and activities of daily living. Initiated fluoxetine for motor recovery, starting 10 mg QD on 07/09/16. Tolerating; increase to 20 mg QD on 07/17/16. * Dysphagia and cognitive/communication issues. Initially DD1 thin liq., advanced to DD2; needs 1:1 feeding due to impulsivity. Anterior leak on L; improving awareness noted 07/11/16. Continue ORAL SURGEON * Cognitive deficits. Decreased insight, safety awareness, functional reading and writing, speed of processing, problem solving. Dysexecutive. Continue ORAL SURGEON. * Insomnia & fatigue. SCD on L leg only. Melatonin 07/08/16 was ineffective; sleeping better with trazodone since 07/09/16 but still not adequate. Hesitate to add hypnotic given deficits due to craniotomy and CVA. Discussed sleep hygiene; slept well 07/17/16.. * Hypotension: Asymptomatic. Orthostatic by pulse. Appears to have adequate hydration per recorded I&O. BMP and TSH wnl. * Status post craniotomy and excision of brain tumor. Nursing care for wound healing. Completed dexamethasone taper 07/11/16. Will d/c famotidine. 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 Continue levetiracetam until followup by Neurosurgery. Seizure precautions. * Constipation. Continue senna and polyethylene glycol. * Prophylaxis. High risk for DVT. Change to enoxaparin from heparin per his request to not have shots TID. Completed dexamethasone; d/c famotidine. * Pain control will be continued with hydrocodone/acetaminophen combination. He 's using it once per day. Primary care provider is Dr. Armenta. Follow-up with Neurosurgeon Dr. Hare week of 07/21/16. Parents from [place] in [place] for next 6 months. 3 MIKI, 1/2 bath on first floor. 20 steps to 2nd floor. Anticipate 6 weeks LOS with tentative discharge 08/11/16. Subjective: No events. C/o fatigue after meals. No pain. Father notes much improving arousal. Objective: Vital Signs Temp Pulse Resp BP Pulse Ox 36.6 C 76 18 79/50 L 97 07/20/16 08:00 07/20/16 08:00 07/20/16 08:00 07/20/16 08:00 07/20/16 08:00 Laboratory Results 07/16/16 13:35 07/19/16 07/20/16 07/21/16 05:59 05:59 05:59 Intake Total 1407 1548 Output Total 950 Balance 1407 598 - Pending Discharge Pending Discharge Within 24 Hours: No Pending Discharge Within 48 Hours: No Physical Exam - Physical Exam General Appearance: alert, no apparent distress Neck: supple Respiratory: lungs clear, normal breath sounds Cardiac/Chest: regular rate, rhythm, No edema Abdomen: non-tender, soft Skin: normal color, warm/dry Extremities: No calf tenderness Neuro/Psych: alert, normal mood/affect, abnormal fender mechanic II-XII, motor weakness, cognition abnormalities, No speech abnormalities ICD10 Worksheet Patient Problems: Problems Problem Status Onset Drowsiness Acute Hemiplegia affecting left nondominant side Acute Neoplasm of brain causing mass effect on adjacent structures Acute
[2016-07-20] MEDS: HYDROCODONE/APAP 10/325 TAB PO PRN (21:18)
[2016-07-20] MEDS: traZODone 50 MG TAB PO SCH (21:18)
[2016-07-20] MEDS: PETROLAT,WHT/MIN OIL/SOD CHL 3.5 GM OPHT.OINT EACHEYE PRN (21:21)
[2016-07-21] MEDS: CHOLECALCIFEROL VIT D3 1,000 UNITS TAB PO SCH (07:34)
[2016-07-21] MEDS: levETIRAcetam 500 MG TAB PO SCH ×2 (07:34→20:21)
[2016-07-21] MEDS: POLYETHYLENE GLYCOL 3350 17 GM PKT PO SCH (07:34)
[2016-07-21] MEDS: ENOXAPARIN 40 MG/0.4 ML SYR SC SCH (07:34)
[2016-07-21] MEDS: FLUoxetine 20 MG CAP PO SCH (07:35)
--- NOTE | 2016-07-21 09:57 | SOAPPROG ---
SOAP Progress Note Assessment/Plan: Assessment: 36 yo M s/p excision of a right temporal mass and perioperative cerebrovascular accident on 06/30/2016: * Left-sided hemiparesis and hemineglect. Initial FIM 47 on 07/07/16, improved to 58 on 07/14/16 and to 67 as of 07/21/16. Walked 50 - 75 feet min A 1 person; squat pivot t'oh to L CGA. Requires set-up and cues for UB dressing, and min A to hike pants for LB. Hs L neglect re use of LUE. Problem solving improving. Continue.physical therapy and occupational therapy to optimize mobility and activities of daily living. Initiated fluoxetine for motor recovery, starting 10 mg QD on 07/09/16. Tolerating; increase to 20 mg QD on 07/17. * Dysphagia and cognitive/communication issues. Initially DD1 thin liq., advanced to DD2; needs 1:1 feeding due to impulsivity. Anterior leak on L; improving awareness noted 07/11/16. Continue DUMP GRADER * Cognitive deficits. Conitnues dysexecutive. Continue DUMP GRADER. * Insomnia & fatigue. SCD on L leg only. Melatonin 07/08/16 was ineffective; sleeping better with trazodone since 07/09/16 but still not adequate. Hesitate to add hypnotic given deficits due to craniotomy and CVA. Discussed sleep hygiene; slept better since 07/17/16. * Hypotension: Asymptomatic. Orthostatic by pulse. Appears to have adequate hydration per recorded I&O. BMP and TSH wnl. * Status post craniotomy and excision of brain tumor. Nursing care for wound healing. Completed dexamethasone taper 07/11/16. Will d/c famotidine. 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 Continue levetiracetam until followup by Neurosurgery. Seizure precautions. * Constipation. Continue senna and polyethylene glycol. * Prophylaxis. High risk for DVT. Change to enoxaparin from heparin per his request to not have shots TID. Completed dexamethasone; d/c famotidine. * Pain control will be continued with hydrocodone/acetaminophen combination. He 's using it once per day. Primary care provider is Dr. Armenta. Follow-up with Neurosurgeon Dr. Hare week of 07/21/16. Attended staffing, 15 min. D/X case mgmt, nursing, blowing engineer, PT, OT, DUMP GRADER. Parents from [place] in [place] for next 6 months. 3 MIKI, 1/2 bath on first floor. 20 steps to 2nd floor. Need to involve family more in his care. Family conference 07/24/16. Continue discharge date of 08/11/16. 07/21/16 12:17 Subjective: No complaints. Sleeping well. No lightheadedness with standing. Objective: Vital Signs Temp Pulse Resp BP Pulse Ox 37.1 C 75 16 88/61 L 94 07/21/16 08:00 07/21/16 08:00 07/21/16 08:00 07/21/16 08:00 07/21/16 08:00 Laboratory Results 07/16/16 13:35 07/20/16 07/21/16 07/22/16 05:59 05:59 05:59 Intake Total 1548 660 600 Output Total 950 Balance 598 660 600 - Time Spent With Patient Time Spent With Patient: Greater than 35 minutes floor time today, including more than 50% of time in coordination of care during staffing meeting, and counseling patient. Physical Exam - Physical Exam General Appearance: WD/WN, alert, no apparent distress, thin Respiratory: No respiratory distress, No accessory muscle use Skin: normal color, warm/dry Neuro/Psych: alert, normal mood/affect, oriented x 3, abnormal gait (Ambulating with PT and rolling hemiwalker. PT assisting in elevation of L hip; otherwise forward swing of LLE and weightbearing is independent. AFO in place L ankle.), motor weakness ( LUE & LLE) ICD10 Worksheet Patient Problems: Problems Problem Status Onset Drowsiness Acute Hemiplegia affecting left nondominant side Acute Neoplasm of brain causing mass effect on adjacent structures Acute
[2016-07-21] MEDS: traZODone 50 MG TAB PO SCH (20:20)
[2016-07-21] MEDS: HYDROCODONE/APAP 10/325 TAB PO PRN (20:21)
[2016-07-21] MEDS: PETROLAT,WHT/MIN OIL/SOD CHL 3.5 GM OPHT.OINT EACHEYE PRN (20:24)
[2016-07-22] MEDS: ENOXAPARIN 40 MG/0.4 ML SYR SC SCH (07:54)
[2016-07-22] MEDS: CHOLECALCIFEROL VIT D3 1,000 UNITS TAB PO SCH (07:55)
[2016-07-22] MEDS: POLYETHYLENE GLYCOL 3350 17 GM PKT PO SCH (07:55)
[2016-07-22] MEDS: FLUoxetine 20 MG CAP PO SCH (07:55)
[2016-07-22] MEDS: levETIRAcetam 500 MG TAB PO SCH (07:55)
--- NOTE | 2016-07-22 10:44 | SOAPPROG ---
SOAP Progress Note Assessment/Plan: Assessment: 36 yo M s/p excision of a right temporal mass and perioperative cerebrovascular accident on 06/30/2016: 07/22/2016- Neurologically stable, fatigue not impacting therapies much, except during estim sessions. Continue plan below. 20 min was spent on the floor in the care of the patient, the majority was spent in the counseling and coordination of care regarding fatigue and neurological recovery patterns. Reluctant to use neuro stimulants given risk for seizure, but may be appropriate if interfering significantly with therapies. * Left-sided hemiparesis and hemineglect. Initial FIM 47 on 07/07/16, improved to 58 on 07/14/16 and to 67 as of 07/21/16. Walked 50 - 75 feet min A 1 person; squat pivot t'oh to L CGA. Requires set-up and cues for UB dressing, and min A to hike pants for LB. Hs L neglect re use of LUE. Problem solving improving. Continue.physical therapy and occupational therapy to optimize mobility and activities of daily living. Initiated fluoxetine for motor recovery, starting 10 mg QD on 07/09/16. Tolerating; increase to 20 mg QD on 07/17. * Dysphagia and cognitive/communication issues. Initially DD1 thin liq., advanced to DD2; needs 1:1 feeding due to impulsivity. Anterior leak on L; improving awareness noted 07/11/16. Continue FACILITIES MAINTENANCE SUPERVISOR * Cognitive deficits. Conitnues dysexecutive. Continue FACILITIES MAINTENANCE SUPERVISOR. * Insomnia & fatigue. SCD on L leg only. Melatonin 07/08/16 was ineffective; sleeping better with trazodone since 07/09/16 but still not adequate. Hesitate to add hypnotic given deficits due to craniotomy and CVA. Discussed sleep hygiene; slept better since 07/17/16. * Hypotension: Asymptomatic. Orthostatic by pulse. Appears to have adequate hydration per recorded I&O. BMP and TSH wnl. * Status post craniotomy and excision of brain tumor. Nursing care for wound healing. Completed dexamethasone taper 07/11/16. Will d/c famotidine. 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 Continue levetiracetam until followup by Neurosurgery. Seizure precautions. * Constipation. Continue senna and polyethylene glycol. * Prophylaxis. High risk for DVT. Change to enoxaparin from heparin per his request to not have shots TID. Completed dexamethasone; d/c famotidine. * Pain control will be continued with hydrocodone/acetaminophen combination. He 's using it once per day. Primary care provider is Dr. Armenta. Follow-up with Neurosurgeon Dr. Hare week of 07/21/16. Parents from [place] in [place] for next 6 months. 3 MIKI, 1/2 bath on first floor. 20 steps to 2nd floor. Need to involve family more in his care. Family conference 07/24/16. Continue discharge date of 08/11/16. 07/10/16 11:10 07/22/16 10:40 Subjective: CC: fatigue and neuro recovery No acute events overnight. Asking about fatigue, which has been affecting participation in estim sessions per OT, but otherwise has not been affecting participation per the patient. He inquired about neural recovery, counseled that 12-24 weeks is a reasonable time to see significant progress, barring problems from other diagnoses. No new numbness, tingling or weakness. Sleeping well. Objective: Vital Signs Temp Pulse Resp BP Pulse Ox 36.8 C 56 L 16 81/43 L 94 07/22/16 06:49 07/22/16 06:49 07/22/16 06:49 07/22/16 06:49 07/22/16 06:49 Laboratory Results 07/16/16 13:35 07/21/16 07/22/16 07/23/16 05:59 05:59 05:59 Intake Total 660 2060 660 Output Total 1500 Balance 660 560 660 Physical Exam - Physical Exam General Appearance: alert, no apparent distress EENT: No scleral icterus (R), No scleral icterus (L) Respiratory: lungs clear, normal breath sounds, No respiratory distress, No accessory muscle use Cardiac/Chest: normal peripheral pulses, regular rate, rhythm Abdomen: non-tender, soft Skin: normal color, warm/dry Extremities: No pedal edema, No swelling Neuro/Psych: alert, normal mood/affect, other (left hemiparesis, 1 MAS spasticity in left wrist flexors. No active movment on left appreciated on exam. Facial droop. 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
[2016-07-22] MEDS: traZODone 50 MG TAB PO SCH (20:14)
[2016-07-22] MEDS: HYDROCODONE/APAP 10/325 TAB PO PRN (20:14)
[2016-07-23] MEDS: FLUoxetine 20 MG CAP PO SCH (08:39)
[2016-07-23] MEDS: CHOLECALCIFEROL VIT D3 1,000 UNITS TAB PO SCH (08:39)
[2016-07-23] MEDS: ENOXAPARIN 40 MG/0.4 ML SYR SC SCH (08:39)
[2016-07-23] MEDS: POLYETHYLENE GLYCOL 3350 17 GM PKT PO SCH (08:39)
--- NOTE | 2016-07-23 14:06 | SOAPPROG ---
SOAP Progress Note Assessment/Plan: Assessment: 36 yo M s/p excision of a right temporal mass and perioperative cerebrovascular accident on 06/30/2016: * Left-sided hemiparesis and hemineglect. Initial FIM 47 on 07/07/16, improved to 58 on 07/14/16 and to 67 as of 07/21/16. Walked 50 - 75 feet min A 1 person; improving per PT 07/23/16. Squat pivot t'oh to L CGA. Requires set-up and cues for UB dressing, and min A to hike pants for LB. Hs L neglect re use of LUE. Problem solving improving. Continue.physical therapy and occupational therapy to optimize mobility and activities of daily living. Initiated fluoxetine for motor recovery, starting 10 mg QD on 07/09/16. Tolerating; increase to 20 mg QD on 07/17/16. * Dysphagia and cognitive/communication issues. Initially DD1 thin liq., advanced to DD2; needs 1:1 feeding due to impulsivity. Anterior leak on L; improving awareness noted 07/11/16. Continue OBIEE OBIA SOLUTION ARCHITECT * Cognitive deficits. Continues dysexecutive. Continue OBIEE OBIA SOLUTION ARCHITECT. * Insomnia & fatigue. SCD on L leg only to facilitate sleep. Melatonin 07/08/16 was ineffective; sleeping better with trazodone since 07/09/16 but still not adequate. Hesitate to add hypnotic given deficits due to craniotomy and CVA. Discussed sleep hygiene; slept better since 07/17/16. * Hypotension: Asymptomatic. Orthostatic by pulse. Appears to have adequate hydration per recorded I&O. BMP and TSH wnl. * Status post craniotomy and excision of brain tumor. Nursing care for wound healing. Completed dexamethasone taper 07/11/16. Will d/c famotidine. D/W Dr. Hare, Neurosurgery, 07/22/16, re follow-up: pathology shows benign tumor. Plan to repeat brain imaging at [address] Hare will present to Tumor Board in case there is growth re options for treatment. 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 Continue levetiracetam until followup by Neurosurgery. Seizure precautions. * Constipation. Continue senna and polyethylene glycol. * Prophylaxis. High risk for DVT. Change to enoxaparin from heparin per his request to not have shots TID. Completed dexamethasone; d/c famotidine. * Pain control will be continued with hydrocodone/acetaminophen combination. He 's using it once per day. Primary care provider is Dr. Armenta. Follow-up with Neurosurgeon Dr. Hare week of 07/21/16. Parents from [place] in [place] for next 6 months. 3 MIKI, 1/2 bath on first floor. 20 steps to 2nd floor. Need to involve family more in his care. Family conference 07/24/16. Continue discharge date of 08/11/16. 07/23/16 14:03 Subjective: No complaints. Still with fatigue, not better with D/C of levetiracetam. Sleeping well, not in pain. Objective: Vital Signs Temp Pulse Resp BP Pulse Ox 36.7 C 88 16 93/47 L 94 07/23/16 07:09 07/23/16 07:09 07/23/16 07:09 07/23/16 07:09 07/23/16 07:09 Laboratory Results 07/16/16 13:35 07/22/16 07/23/16 07/24/16 05:59 05:59 05:59 Intake Total 2060 2150 236 Output Total 1500 Balance 560 2150 236 Physical Exam - Physical Exam General Appearance: WD/WN, alert, no apparent distress Respiratory: No respiratory distress, No accessory muscle use Skin: normal color, warm/dry Neuro/Psych: alert, normal mood/affect, oriented x 3 ICD10 Worksheet Patient Problems: Problems Problem Status Onset Drowsiness Acute Hemiplegia affecting left nondominant side Acute Neoplasm of brain causing mass effect on adjacent structures Acute
[2016-07-23] MEDS: traZODone 50 MG TAB PO SCH (21:05)
[2016-07-23] MEDS: HYDROCODONE/APAP 10/325 TAB PO PRN (21:05)
[2016-07-23] MEDS: PETROLAT,WHT/MIN OIL/SOD CHL 3.5 GM OPHT.OINT EACHEYE PRN (21:06)
[2016-07-24] MEDS: CHOLECALCIFEROL VIT D3 1,000 UNITS TAB PO SCH (09:41)
[2016-07-24] MEDS: ENOXAPARIN 40 MG/0.4 ML SYR SC SCH (09:41)
[2016-07-24] MEDS: FLUoxetine 20 MG CAP PO SCH (09:41)
[2016-07-24] MEDS: POLYETHYLENE GLYCOL 3350 17 GM PKT PO SCH (09:42)
--- NOTE | 2016-07-24 11:11 | SOAPPROG ---
SOAP Progress Note Assessment/Plan: Assessment: 36 yo M s/p excision of a right temporal mass and perioperative cerebrovascular accident on 06/30/2016: * Left-sided hemiparesis and hemineglect. Initial FIM 47 on 07/07/16, improved to 58 on 07/14/16 and to 67 as of 07/21/16. Walked 50 - 75 feet min A 1 person; improving per PT 07/23/16; walked 150' X 2 with trekking pole CGA. Squat pivot t 'oh to L CGA. Requires set-up and cues for UB dressing, and min A to hike pants for LB. Hs L neglect re use of LUE. Problem solving improving. Continue.physical therapy and occupational therapy to optimize mobility and activities of daily living. Initiated fluoxetine for motor recovery, starting 10 mg QD on 07/09/16; increased to 20 mg QD on 07/17/16. * Dysphagia and cognitive/communication issues. Initially DD1 thin liq., advanced to DD2; needs 1:1 feeding due to impulsivity. Anterior leak on L; improving awareness noted 07/11/16. Continue COMPUTERIZED MILL RECORDER * Cognitive deficits. Continues dysexecutive. Continue COMPUTERIZED MILL RECORDER. * Insomnia & fatigue. SCD on L leg only to facilitate sleep. Melatonin 07/08/16 was ineffective; sleeping better with trazodone since 07/09/16. Discussed sleep hygiene; slept better since 07/17/16. Change trazodone from 50 mg QHS to 25 - 50 mg QHS PRN starting 07/24/16. * Hypotension: Asymptomatic. Orthostatic by pulse. Appears to have adequate hydration per recorded I&O. BMP and TSH wnl. * Status post craniotomy and excision of brain tumor. Nursing care for wound healing. Completed dexamethasone taper 07/11/16. Will d/c famotidine. D/W Dr. Hare, Neurosurgery, 07/22/16, re follow-up: pathology shows benign tumor. Plan to repeat brain imaging at [address] Hare will present to Tumor Board in case there is growth re options for treatment. 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 Continue levetiracetam until followup by Neurosurgery. Seizure precautions. * Constipation. Continue senna and polyethylene glycol. * Prophylaxis. High risk for DVT. Change to enoxaparin from heparin per his request to not have shots TID. Completed dexamethasone; d/c famotidine. * Pain control will be continued with hydrocodone/acetaminophen combination. He 's using it once per day. Attended family meeting, 30 min. and mother of patient present. D/W case mgmt, nursing, PT, OT, COMPUTERIZED MILL RECORDER. Continue discharge goal of 08/11/16; [id number] approval from insurance company. Primary care provider is Dr. Armenta. Parents from [place] in for next 6 months. 3 MIKI, 1/2 bath on first floor. 20 steps to 2nd floor. Need to involve family more in his care. Family conference 07/24/16. Continue discharge date of 08/11/16. 07/24/16 13:42 Subjective: Still feels tired. Beginning to have return of motor function L arm at biceps. Slept well. Objective: Vital Signs Temp Pulse Resp BP Pulse Ox 36.7 C 57 L 16 94/48 L 96 07/24/16 06:31 07/24/16 06:31 07/24/16 06:31 07/24/16 06:31 07/24/16 06:31 Laboratory Results 07/16/16 13:35 07/23/16 07/24/16 07/25/16 05:59 05:59 05:59 Intake Total 2150 636 660 Output Total 200 Balance 2150 436 660 - Time Spent With Patient Time Spent With Patient: Greater than 35 minutes floor time today, including more than 50% of time in coordination of care and counseling during family meeting. Physical Exam - Physical Exam General Appearance: WD/WN, alert, no apparent distress, thin Respiratory: No respiratory distress, No accessory muscle use Skin: normal color, warm/dry Neuro/Psych: alert, normal mood/affect, oriented x 3, abnormal cold storage supervisor II-XII (R ptosis), motor weakness (Supine on mat able to maintain R arm flexion at elbow.) ICD10 Worksheet Patient Problems: Problems Problem Status Onset Drowsiness Acute Hemiplegia affecting left nondominant side Acute Neoplasm of brain causing mass effect on adjacent structures Acute
[2016-07-24] MEDS: traZODone 50 MG TAB PO PRN (21:10)
[2016-07-24] MEDS: HYDROCODONE/APAP 10/325 TAB PO PRN (21:10)
[2016-07-24] MEDS: PETROLAT,WHT/MIN OIL/SOD CHL 3.5 GM OPHT.OINT EACHEYE PRN (21:13)
[2016-07-25] MEDS: ENOXAPARIN 40 MG/0.4 ML SYR SC SCH (09:22)
[2016-07-25] MEDS: POLYETHYLENE GLYCOL 3350 17 GM PKT PO SCH (09:23)
[2016-07-25] MEDS: FLUoxetine 20 MG CAP PO SCH (09:23)
[2016-07-25] MEDS: CHOLECALCIFEROL VIT D3 1,000 UNITS TAB PO SCH (09:23)
--- NOTE | 2016-07-25 15:02 | SOAPPROG ---
SOAP Progress Note Assessment/Plan: Assessment: 36 yo M s/p excision of a right temporal mass and perioperative cerebrovascular accident on 06/30/2016: * Left-sided hemiparesis and hemineglect. Initial FIM 47 on 07/07/16, improved to 58 on 07/14/16 and to 67 as of 07/21/16. Walked 50 - 75 feet min A 1 person; improving per PT 07/23/16; walked 150' X 2 with trekking pole CGA. Squat pivot t 'oh to L CGA. Requires set-up and cues for UB dressing, and min A to hike pants for LB. Hs L neglect re use of LUE. Problem solving improving. Continue.physical therapy and occupational therapy to optimize mobility and activities of daily living. Initiated fluoxetine for motor recovery, starting 10 mg QD on 07/09/16; increased to 20 mg QD on 07/17/16. * Dysphagia and cognitive/communication issues. Initially DD1 thin liq., advanced to DD2; needs 1:1 feeding due to impulsivity. Anterior leak on L; improving awareness noted 07/11/16. Continue SIGNAL REPAIRER * Cognitive deficits. Continues dysexecutive. Continue SIGNAL REPAIRER. * Insomnia & fatigue. Sleeping better with trazodone since 07/09/16. Discussed sleep hygiene; slept better since 07/17/16. Change trazodone from 50 mg QHS to 25 - 50 mg QHS PRN starting 07/24/16; slept well and has less fatigue today . * Hypotension: Asymptomatic. Orthostatic by pulse. Appears to have adequate hydration per recorded I&O. BMP and TSH wnl. * Status post craniotomy and excision of brain tumor. Nursing care for wound healing. Completed dexamethasone taper 07/11/16. Will d/c famotidine. D/W Dr. Hare, Neurosurgery, 07/22/16, re follow-up: pathology shows benign tumor. Plan to repeat brain imaging at [address] Hare will present to Tumor Board in case there is growth re options for treatment. 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 Continue levetiracetam until followup by Neurosurgery. Seizure precautions. * Constipation. Continue senna and polyethylene glycol. * Prophylaxis. High risk for DVT. Change to enoxaparin from heparin per his request to not have shots TID. Completed dexamethasone; d/c famotidine. * Pain control will be continued with hydrocodone/acetaminophen combination. He 's using it once per day. Continue discharge goal of 08/11/16; [id number] approval from insurance company. Primary care provider is Dr. Armenta. Parents from [place] in [place] for next 6 months. 3 MIKI, 1/2 bath on first floor. 20 steps to 2nd floor. Need to involve family more in his care. Family conference 07/24/16. Continue discharge date of 08/11/16. 07/25/16 15:01 Subjective: No complaints. Feeling less tired. Wants to know how long he'll be here. Objective: Vital Signs Temp Pulse Resp BP Pulse Ox 36.7 C 62 12 84/48 L 96 07/25/16 08:00 07/25/16 08:00 07/25/16 08:00 07/25/16 08:00 07/25/16 08:00 Laboratory Results 07/16/16 13:35 07/24/16 07/25/16 07/26/16 05:59 05:59 05:59 Intake Total 636 2050 360 Output Total 200 300 Balance 436 1750 360 Physical Exam - Physical Exam General Appearance: WD/WN, alert, no apparent distress Respiratory: No respiratory distress, No accessory muscle use Skin: normal color, warm/dry Neuro/Psych: alert, normal mood/affect, oriented x 3, abnormal courier II-XII (R ptosis improved), motor weakness (LUE & LLE) ICD10 Worksheet Patient Problems: Problems Problem Status Onset Drowsiness Acute Hemiplegia affecting left nondominant side Acute Neoplasm of brain causing mass effect on adjacent structures Acute
[2016-07-25] MEDS: traZODone 50 MG TAB PO PRN (20:31)
[2016-07-25] MEDS: HYDROCODONE/APAP 10/325 TAB PO PRN (20:31)
[2016-07-26] MEDS: CHOLECALCIFEROL VIT D3 1,000 UNITS TAB PO SCH (08:39)
[2016-07-26] MEDS: ENOXAPARIN 40 MG/0.4 ML SYR SC SCH (08:39)
[2016-07-26] MEDS: FLUoxetine 20 MG CAP PO SCH (08:39)
[2016-07-26] MEDS: POLYETHYLENE GLYCOL 3350 17 GM PKT PO SCH (08:43)
--- NOTE | 2016-07-26 11:50 | SOAPPROG ---
SOAP Progress Note Assessment/Plan: Assessment: 36 yo M s/p excision of a right temporal mass and perioperative cerebrovascular accident on 06/30/2016: 07/26/2016 patient doing well in therapies, he believed in AFO was on order, but there is no console placed. He is currently wearing a hospital provided AFO. Placed a consult order for a left-sided solid ankle foot orthosis with a tamarack hinge, neutral position. I spent 25 minutes in the care of the patient , the majority was spent in the counseling and coordination of care regarding neural recovery patterns and appropriate use of orthoses. * Left-sided hemiparesis and hemineglect. Initial FIM 47 on 07/07/16, improved to 58 on 07/14/16 and to 67 as of 07/21/16. Walked 50 - 75 feet min A 1 person; improving per PT 07/23/16; walked 150' X 2 with trekking pole CGA. Squat pivot t 'oh to L CGA. Requires set-up and cues for UB dressing, and min A to hike pants for LB. Hs L neglect re use of LUE. Problem solving improving. Continue.physical therapy and occupational therapy to optimize mobility and activities of daily living. Initiated fluoxetine for motor recovery, starting 10 mg QD on 07/09/16; increased to 20 mg QD on 07/17/16. He endorses much better walking with the AFO, placed an order for one on 07/26/2016 * Dysphagia and cognitive/communication issues. Initially DD1 thin liq., advanced to DD2; needs 1:1 feeding due to impulsivity. Anterior leak on L; improving awareness noted 07/11/16. Continue PAPERHANGER * Cognitive deficits. Continues dysexecutive. Continue PAPERHANGER. * Insomnia & fatigue. Sleeping better with trazodone since 07/09/16. Discussed sleep hygiene; slept better since 07/17/16. Change trazodone from 50 mg QHS to 25 - 50 mg QHS PRN starting 07/24/16; slept well and has less fatigue today . * Hypotension: Asymptomatic. Orthostatic by pulse. Appears to have adequate hydration per recorded I&O. BMP and TSH wnl. * Status post craniotomy and excision of brain tumor. Nursing care for wound healing. Completed dexamethasone taper 07/11/16. Will d/c famotidine. D/W Dr. Hare, Neurosurgery, 07/22/16, re follow-up: pathology shows benign tumor. Plan to repeat brain imaging at [address] Hare will present to Tumor Board in case there is growth re options for treatment. 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 Continue levetiracetam until followup by Neurosurgery. Seizure precautions. * Constipation. Continue senna and polyethylene glycol. * Prophylaxis. High risk for DVT. Change to enoxaparin from heparin per his request to not have shots TID. Completed dexamethasone; d/c famotidine. * Pain control will be continued with hydrocodone/acetaminophen combination. He 's using it once per day. Continue discharge goal of 08/11/16; [id number] approval from insurance company. Primary care provider is Dr. Armenta. Parents from [facility] in [place] for next 6 months. 3 MIKI, 1/2 bath on first floor. 20 steps to 2nd floor. Need to involve family more in his care. Family conference 07/24/16. Continue discharge date of 08/11/16. 07/22/16 10:40 07/26/16 11:47 07/26/16 11:50 Subjective: chief complaint: impaired walking no acute events overnight. Patient is somewhat concerned about his walking and endorses much better walking with the left-sided ankle foot orthosis provided by the hospital, looking forward to a custom molded version. Additionally, I counseled him on recovery patterns for his left arm as he was under the impression that he would have recovery and that arm prior to discharge. 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 He has not noticed any movement. Otherwise no new numbness, tingling, or weakness, no new symptoms, no new chest pain or shortness of breath. Objective: Vital Signs Temp Pulse Resp BP Pulse Ox 36.5 C 59 L 15 90/57 L 94 07/26/16 04:56 07/26/16 04:56 07/26/16 04:56 07/26/16 04:56 07/26/16 04:56 Laboratory Results 07/16/16 13:35 07/25/16 07/26/16 07/27/16 05:59 05:59 05:59 Intake Total 2050 660 Output Total 300 Balance 1750 660 Physical Exam - Physical Exam General Appearance: alert, no apparent distress EENT: No scleral icterus (R), No scleral icterus (L) Respiratory: lungs clear, normal breath sounds, No respiratory distress Cardiac/Chest: normal peripheral pulses, regular rate, rhythm, No edema Skin: normal color, warm/dry, No cyanosis Extremities: non-tender, No pedal edema, No swelling Neuro/Psych: alert, normal mood/affect, other ( right-sided I droop, left-sided dense hemiparesis. 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
[2016-07-26] MEDS: traZODone 50 MG TAB PO PRN (20:48)
[2016-07-26] MEDS: HYDROCODONE/APAP 10/325 TAB PO PRN (20:48)
[2016-07-26] MEDS: PETROLAT,WHT/MIN OIL/SOD CHL 3.5 GM OPHT.OINT EACHEYE PRN (20:50)
[2016-07-27] MEDS: CHOLECALCIFEROL VIT D3 1,000 UNITS TAB PO SCH (09:28)
[2016-07-27] MEDS: FLUoxetine 20 MG CAP PO SCH (09:28)
[2016-07-27] MEDS: POLYETHYLENE GLYCOL 3350 17 GM PKT PO SCH (09:28)
[2016-07-27] MEDS: ENOXAPARIN 40 MG/0.4 ML SYR SC SCH (09:28)
--- NOTE | 2016-07-27 12:28 | SOAPPROG ---
SOAP Progress Note Assessment/Plan: Assessment: 36 yo M s/p excision of a right temporal mass and perioperative cerebrovascular accident on 06/30/2016: 07/27/2016- Patient is doing well today. Discussed with family at length the rehab prognoses and recovery course. Ambulating well with an AFO, physical therapy will work with orthotics to choose the correct configuration. A total of 20 minutes was spent on the floor in the care of the patient, the majority which was spent in the counseling and coronation of care regarding rehab prognosis and progress. * Left-sided hemiparesis and hemineglect. Initial FIM 47 on 07/07/16, improved to 58 on 07/14/16 and to 67 as of 07/21/16. Walked 50 - 75 feet min A 1 person; improving per PT 07/23/16; walked 150' X 2 with trekking pole CGA. Squat pivot t 'oh to L CGA. Requires set-up and cues for UB dressing, and min A to hike pants for LB. Hs L neglect re use of LUE. Problem solving improving. Continue.physical therapy and occupational therapy to optimize mobility and activities of daily living. Initiated fluoxetine for motor recovery, starting 10 mg QD on 07/09/16; increased to 20 mg QD on 07/17/16. He endorses much better walking with the AFO, orthotics consult pending. * Dysphagia and cognitive/communication issues. Initially DD1 thin liq., advanced to DD2; needs 1:1 feeding due to impulsivity. Anterior leak on L; improving awareness noted 07/11/16. Continue STATOR WINDER * Cognitive deficits. Continues dysexecutive. Continue STATOR WINDER. * Insomnia & fatigue. Sleeping better with trazodone since 07/09/16. Discussed sleep hygiene; slept better since 07/17/16. Change trazodone from 50 mg QHS to 25 - 50 mg QHS PRN starting 07/24/16; much improved. * Hypotension: Asymptomatic. Orthostatic by pulse. Appears to have adequate hydration per recorded I&O. BMP and TSH wnl. * Status post craniotomy and excision of brain tumor. Nursing care for wound healing. Completed dexamethasone taper 07/11/16. Will d/c famotidine. D/W Dr. Hare, Neurosurgery, 07/22/16, re follow-up: pathology shows benign tumor. Plan to repeat brain imaging at [address] Hare will present to Tumor Board in case there is growth re options for treatment. 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 Continue levetiracetam until followup by Neurosurgery. Seizure precautions. * Constipation. Continue senna and polyethylene glycol. * Prophylaxis. High risk for DVT. Change to enoxaparin from heparin per his request to not have shots TID. Completed dexamethasone; d/c famotidine. * Pain control will be continued with hydrocodone/acetaminophen combination. He 's using it once per day. Continue discharge goal of 08/11/16; [id number] approval from insurance company. Primary care provider is Dr. Armenta. Parents from [place] in [place] for next 6 months. 3 MIKI, 1/2 bath on first floor. 20 steps to 2nd floor. Need to involve family more in his care. Family conference 07/24/16. Continue discharge date of 08/11/16. 07/22/16 10:40 07/26/16 11:47 07/26/16 11:50 07/27/16 12:25 Subjective: CC: Rehab progress no acute events overnight, the patient is working much better therapist today than yesterday. His endorses that the tremor she noticed was much better, he is sleeping well and participating well and therapies. She does not have concerns, but was asking about the prognosis of his arm function. As discussed with the patient yesterday, he currently doesn't have any voluntary function in that arm, it is hard to make a prognosis when there is no motion. I reinforced the need to do stretching, skincare, and to keep the arm as limber as possible to help with ADLs and facilitate any future recovery. The patient denies any shortness of breath, chest pain, new numbness, tingling, or weakness, and does not have any new concerns today. He was emulating well with physical therapy. Objective: Vital Signs Temp Pulse Resp BP Pulse Ox 36.8 C 72 14 92/51 L 97 07/27/16 08:00 07/27/16 08:00 07/27/16 08:00 07/27/16 08:00 07/27/16 08:00 Laboratory Results 07/16/16 13:35 07/26/16 07/27/16 07/28/16 05:59 05:59 05:59 Intake Total 660 1700 Balance 660 1700 Physical Exam - Physical Exam General Appearance: WD/WN, alert, no apparent distress EENT: No scleral icterus (R), No scleral icterus (L) Respiratory: normal breath sounds, No respiratory distress, No accessory muscle use Cardiac/Chest: normal peripheral pulses, regular rate, rhythm, No edema Skin: normal color, warm/dry, No cyanosis Extremities: non-tender, No pedal edema, No swelling Neuro/Psych: alert, normal mood/affect, other (dense hemiparesis) ICD10 Worksheet Patient Problems: Problems Problem Status Onset Drowsiness Acute Hemiplegia affecting left nondominant side Acute Neoplasm of brain causing mass effect on adjacent structures Acute - ICD10 Problem Qualifiers (1) Drowsiness (2) Hemiplegia affecting left nondominant side Qualifiers: Hemiplegia type: flaccid Hemiplegia etiology: non-cerebrovascular Cerebrovascular disease type: C Qualified Code(s): 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
[2016-07-27] MEDS: traZODone 50 MG TAB PO PRN (20:17)
[2016-07-28] MEDS: FLUoxetine 20 MG CAP PO SCH (08:31)
[2016-07-28] MEDS: CHOLECALCIFEROL VIT D3 1,000 UNITS TAB PO SCH (08:31)
[2016-07-28] MEDS: POLYETHYLENE GLYCOL 3350 17 GM PKT PO SCH (08:33)
[2016-07-28] MEDS: ENOXAPARIN 40 MG/0.4 ML SYR SC SCH (08:35)
--- NOTE | 2016-07-28 12:38 | SOAPPROG ---
SOAP Progress Note Assessment/Plan: Assessment: 36 yo M s/p excision of a right temporal mass and perioperative cerebrovascular accident on 06/30/2016: * Left-sided hemiparesis and hemineglect. Initial FIM 47 on 07/07/16, improved to 58 on 07/14/16; 67 as of 07/21/16 and 83 as of 07/28/16. Walked 200' CGA no device, but needs CGA because he can fall to the left and does not correct. 6 stairs, 1 rail, min A. Requires set-up and cues for UB dressing, and CGA to hike pants for LB. Hs L neglect re use of LUE. Problem solving improving. Continue.physical therapy and occupational therapy to optimize mobility and activities of daily living. Initiated fluoxetine for motor recovery, starting 10 mg QD on 07/09/16; increased to 20 mg QD on 07/17/16. * Dysphagia and cognitive/communication issues. Initially DD1 thin liq. advacned to DD2, Anterior leak on L; improving awareness noted 07/11/16. Continue HIGH HEEL BUILDER * Cognitive deficits. Continues dysexecutive. Continue HIGH HEEL BUILDER. * Insomnia & fatigue. Sleeping better with trazodone since 07/09/16. Discussed sleep hygiene; slept better since 07/17/16. Change trazodone from 50 mg QHS to 25 - 50 mg QHS PRN starting 07/24/16; slept well and has less fatigue today . * Hypotension: Asymptomatic. Orthostatic by pulse. Appears to have adequate hydration per recorded I&O. BMP and TSH wnl. * Status post craniotomy and excision of brain tumor. Nursing care for wound healing. Completed dexamethasone taper 07/11/16. Will d/c famotidine. D/W Dr. Hare, Neurosurgery, 07/22/16, re follow-up: pathology shows benign tumor. Plan to repeat brain imaging at [address] Hare will present to Tumor Board in case there is growth re options for treatment. 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 Continue levetiracetam until followup by Neurosurgery. Seizure precautions. * Constipation. Continue senna and polyethylene glycol. * Prophylaxis. High risk for DVT. Change to enoxaparin from heparin per his request to not have shots TID. Completed dexamethasone; d/c famotidine. * Pain control will be continued with hydrocodone/acetaminophen combination. He 's using it once per day. Attended staffing, 15 min. D/W case mgmt, nursing, PT, OT, HIGH HEEL BUILDER. Continue discharge goal of 08/11/16; [id number] approval from insurance company. Primary care provider is Dr. Armenta. Parents from [place] in [place] for next 6 months. 3 MIKI, 1/2 bath on first floor. 20 steps to 2nd floor. Need to involve family more in his care. Family conference 07/24/16. Continue discharge date of 08/11/16. 07/28/16 12:34 Subjective: No complaints. reports he did not get to sleep until 020Thursday night. Objective: Vital Signs Temp Pulse Resp BP Pulse Ox 36.8 C 78 16 92/58 L 96 07/27/16 20:00 07/27/16 20:00 07/27/16 20:00 07/27/16 20:00 07/27/16 20:00 Laboratory Results 07/16/16 13:35 07/27/16 07/28/16 07/29/16 05:59 05:59 05:59 Intake Total 1700 450 450 Output Total 400 Balance 1700 50 450 - Time Spent With Patient Time Spent With Patient: Greater than 35 min floor time today, including more than 50% of time in coordination of care during staffing, and counseling patient. Physical Exam - Physical Exam General Appearance: WD/WN, alert, no apparent distress, thin Respiratory: normal breath sounds, No crackles, No rhonchi, No wheezing Cardiac/Chest: regular rate, rhythm, No edema Skin: normal color, warm/dry Neuro/Psych: alert, normal mood/affect, oriented x 3 ICD10 Worksheet Patient Problems: Problems Problem Status Onset Drowsiness Acute Hemiplegia affecting left nondominant side Acute Neoplasm of brain causing mass effect on adjacent structures Acute
[2016-07-28] MEDS: traZODone 50 MG TAB PO PRN (20:45)
[2016-07-29] MEDS: POLYETHYLENE GLYCOL 3350 17 GM PKT PO SCH ×2 (07:41→07:45)
[2016-07-29] MEDS: ENOXAPARIN 40 MG/0.4 ML SYR SC SCH (07:41)
[2016-07-29] MEDS: CHOLECALCIFEROL VIT D3 1,000 UNITS TAB PO SCH (07:41)
[2016-07-29] MEDS: FLUoxetine 20 MG CAP PO SCH (07:41)
--- NOTE | 2016-07-29 09:07 | SOAPPROG ---
SOAP Progress Note Assessment/Plan: Assessment: 36 yo M s/p excision of a right temporal mass and perioperative cerebrovascular accident on 06/30/2016: 07/29/2016- Patient doing well in therapies, no concerns today. Will discuss with occupational therapy the patient's desire for more OT time compared to PROBATE LAWYER. Discussed with the patient the need for ongoing PROBATE LAWYER, may benefit him more than OT. * Left-sided hemiparesis and hemineglect. Initial FIM 47 on 07/07/16, improved to 58 on 07/14/16; 67 as of 07/21/16 and 83 as of 07/28/16. Walked 200' CGA no device, but needs CGA because he can fall to the left and does not correct. 6 stairs, 1 rail, min A. Requires set-up and cues for UB dressing, and CGA to hike pants for LB. Hs L neglect re use of LUE. Problem solving improving. Continue.physical therapy and occupational therapy to optimize mobility and activities of daily living. Initiated fluoxetine for motor recovery, starting 10 mg QD on 07/09/16; increased to 20 mg QD on 07/17/16. * Dysphagia and cognitive/communication issues. Initially DD1 thin liq. advacned to DD2, Anterior leak on L; improving awareness noted 07/11/16. Continue PROBATE LAWYER * Cognitive deficits. Continues dysexecutive. Continue PROBATE LAWYER. * Insomnia & fatigue. Sleeping better with trazodone since 07/09/16. Discussed sleep hygiene; slept better since 07/17/16. Change trazodone from 50 mg QHS to 25 - 50 mg QHS PRN starting 07/24/16. Monitor * Hypotension: Asymptomatic. Orthostatic by pulse. Appears to have adequate hydration per recorded I&O. BMP and TSH wnl. * Status post craniotomy and excision of brain tumor. Nursing care for wound healing. Completed dexamethasone taper 07/11/16. Will d/c famotidine. D/W Dr. Hare, Neurosurgery, 07/22/16, re follow-up: pathology shows benign tumor. Plan to repeat brain imaging at [address] Hare will present to Tumor Board in case there is growth re options for treatment. 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 Continue levetiracetam until followup by Neurosurgery. Seizure precautions. * Constipation. Continue senna and polyethylene glycol. * Prophylaxis. High risk for DVT. Change to enoxaparin from heparin per his request to not have shots TID. Completed dexamethasone; d/c famotidine. * Pain control will be continued with hydrocodone/acetaminophen combination. He 's using it once per day. Continue discharge goal of 08/11/16; [id number] approval from insurance company. Primary care provider is Dr. Armenta. Parents from [place] in [place] for next 6 months. 3 MIKI, 1/2 bath on first floor. 20 steps to 2nd floor. 07/22/16 10:40 07/26/16 11:47 07/26/16 11:50 07/27/16 12:25 07/29/16 09:00 07/29/16 09:36 Subjective: CC: therapy progress No acute events overnight, patient is sleeping well, no new numbness and tingling or weakness. No new chest pain or shortness of breath. He again expressed his desire to do more occupational therapy compared to speech therapy. His goal is to get some movement in his left arm. although he stated that he remembered our discussion about arm function from a couple of days ago, he was perseverative on the desire to get his left arm functioning again with therapy. Objective: Vital Signs Temp Pulse Resp BP Pulse Ox 36.9 C 58 L 14 93/56 L 94 07/29/16 06:45 07/29/16 06:45 07/29/16 06:45 07/29/16 06:45 07/29/16 06:45 Laboratory Results 07/16/16 13:35 07/28/16 07/29/16 07/30/16 05:59 05:59 05:59 Intake Total 450 1670 Output Total 400 300 Balance 50 1370 Physical Exam - Physical Exam General Appearance: WD/WN, alert EENT: No scleral icterus (R), No scleral icterus (L) Respiratory: normal breath sounds, No respiratory distress, No accessory muscle use Cardiac/Chest: normal peripheral pulses, regular rate, rhythm, No edema Skin: normal color, warm/dry, No cyanosis Extremities: No non-tender, No pedal edema, No swelling Neuro/Psych: alert, normal mood/affect, motor weakness (dense hemiparesis ) ICD10 Worksheet Patient Problems: Problems Problem Status Onset Drowsiness Acute Hemiplegia affecting left nondominant side Acute Neoplasm of brain causing mass effect on adjacent structures Acute - ICD10 Problem Qualifiers (1) Drowsiness (2) Hemiplegia affecting left nondominant side Qualifiers: Hemiplegia type: flaccid Hemiplegia etiology: non-cerebrovascular Cerebrovascular disease type: C Qualified Code(s): 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
[2016-07-29] MEDS: traZODone 50 MG TAB PO PRN (20:19)
[2016-07-29] MEDS: PETROLAT,WHT/MIN OIL/SOD CHL 3.5 GM OPHT.OINT EACHEYE PRN (20:24)
[2016-07-30] MEDS: FLUoxetine 20 MG CAP PO SCH (07:43)
[2016-07-30] MEDS: ENOXAPARIN 40 MG/0.4 ML SYR SC SCH (07:43)
[2016-07-30] MEDS: CHOLECALCIFEROL VIT D3 1,000 UNITS TAB PO SCH (07:43)
[2016-07-30] MEDS: POLYETHYLENE GLYCOL 3350 17 GM PKT PO SCH (08:10)
--- NOTE | 2016-07-30 16:36 | SOAPPROG ---
SOAP Progress Note Assessment/Plan: Assessment: 36 yo M s/p excision of a right temporal mass and perioperative cerebrovascular accident on 06/30/2016: * Left-sided hemiparesis and hemineglect. Initial FIM 47 on 07/07/16, improved to 58 on 07/14/16; 67 as of 07/21/16 and 83 as of 07/28/16. Walked 200' CGA no device, but needs CGA because he can fall to the left and does not correct. 6 stairs, 1 rail, min A. Requires set-up and cues for UB dressing, and CGA to hike pants for LB. Hs L neglect re use of LUE. Problem solving improving. Continue.physical therapy and occupational therapy to optimize mobility and activities of daily living. Initiated fluoxetine for motor recovery, starting 10 mg QD on 07/09/16; increased to 20 mg QD on 07/17/16. * Dysphagia and cognitive/communication issues. Initially DD1 thin liq. advanced to DD2, Anterior leak on L; improving awareness noted 07/11/16. Continue CLIENT COORDINATOR * Cognitive deficits. Continues dysexecutive. Continue CLIENT COORDINATOR. * Insomnia & fatigue. Sleeping better with trazodone since 07/09/16. Discussed sleep hygiene; slept better since 07/17/16. Change trazodone from 50 mg QHS to 25 - 50 mg QHS PRN starting 07/24/16. * Hypotension: Asymptomatic. Orthostatic by pulse. Appears to have adequate hydration per recorded I&O. BMP and TSH wnl. * Status post craniotomy and excision of brain tumor. Nursing care for wound healing. Completed dexamethasone taper 07/11/16. Will d/c famotidine. D/W Dr. Hare, Neurosurgery, 07/22/16, re follow-up: pathology shows benign tumor. Plan to repeat brain imaging at [address] Hare will present to Tumor Board in case there is growth re options for treatment. 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 Continue levetiracetam until followup by Neurosurgery. Seizure precautions. * Constipation. Continue senna and polyethylene glycol. * Prophylaxis. High risk for DVT. Change to enoxaparin from heparin per his request to not have shots TID. Completed dexamethasone; d/c famotidine. * Pain control will be continued with hydrocodone/acetaminophen combination. He 's using it once per day. Continue discharge goal of 08/11/16; [id number] approval from insurance company. Primary care provider is Dr. Armenta. Parents from [place] in [place] for next 6 months. 3 MIKI, 1/2 bath on first floor. 20 steps to 2nd floor. Need to involve family more in his care. Family conference 07/24/16. Continue discharge date of 08/11/16. 07/30/16 16:35 Subjective: No complaints. Walking with PT. Has fatigue. Objective: Vital Signs Temp Pulse Resp BP Pulse Ox 36.8 C 67 16 89/59 L 97 07/30/16 06:10 07/30/16 06:10 07/30/16 06:10 07/30/16 06:10 07/30/16 06:10 Laboratory Results 07/16/16 13:35 07/29/16 07/30/16 07/31/16 05:59 05:59 05:59 Intake Total 1670 1597 770 Output Total 300 400 Balance 1370 1197 770 Physical Exam - Physical Exam General Appearance: WD/WN, alert, no apparent distress, thin Respiratory: No respiratory distress, No accessory muscle use Skin: normal color, warm/dry Neuro/Psych: alert, normal mood/affect, oriented x 3, abnormal gait, motor weakness (LUE. Able to bear weight LLE but foot does not always clear floor on forward swing. Intermittent CGA by PT when walking.) ICD10 Worksheet Patient Problems: Problems Problem Status Onset Drowsiness Acute Hemiplegia affecting left nondominant side Acute Neoplasm of brain causing mass effect on adjacent structures Acute
[2016-07-30] MEDS: traZODone 50 MG TAB PO PRN (21:33)
[2016-07-30] MEDS: PETROLAT,WHT/MIN OIL/SOD CHL 3.5 GM OPHT.OINT EACHEYE PRN (21:35)
[2016-07-31] MEDS: CHOLECALCIFEROL VIT D3 1,000 UNITS TAB PO SCH (08:40)
[2016-07-31] MEDS: FLUoxetine 20 MG CAP PO SCH (08:40)
[2016-07-31] MEDS: POLYETHYLENE GLYCOL 3350 17 GM PKT PO SCH (08:40)
[2016-07-31] MEDS: ENOXAPARIN 40 MG/0.4 ML SYR SC SCH (08:40)
--- NOTE | 2016-07-31 14:22 | SOAPPROG ---
SOAP Progress Note Assessment/Plan: Assessment: 36 yo M s/p excision of a right temporal mass and perioperative cerebrovascular accident on 06/30/2016: * Left-sided hemiparesis and hemineglect. Initial FIM 47 on 07/07/16, improved to 58 on 07/14/16; 67 as of 07/21/16 and 83 as of 07/28/16, 88 on 07/31/16. Walked 200' CGA no device, but needs CGA because he can fall to the left and does not correct. 18 stairs, 1 rail, SBA. Continues to have decreased insight and needs supervision. Allow more independence in room to challenge, with discontinuation of alarms 07/31/16. Continue physical therapy and occupational therapy to optimize mobility and activities of daily living. Initiated fluoxetine for motor recovery, starting 10 mg QD on 07/09/16; increased to 20 mg QD on 07/17/16. * Dysphagia and cognitive/communication issues. Initially DD1 thin liq. advanced to DD2; and to DD# on . Continue ALTERATION INSPECTOR * Cognitive deficits. Continues dysexecutive. Continue ALTERATION INSPECTOR. * Insomnia & fatigue. Sleeping better with trazodone since 07/09/16. Discussed sleep hygiene; slept better since 07/17/16. Change trazodone from 50 mg QHS to 25 - 50 mg QHS PRN starting 07/24/16. * Hypotension: Asymptomatic. Orthostatic by pulse. Appears to have adequate hydration per recorded I&O. BMP and TSH wnl. * Status post craniotomy and excision of brain tumor. Nursing care for wound healing. Completed dexamethasone taper 07/11/16. Will d/c famotidine. D/W Dr. Hare, Neurosurgery, 07/22/16, re follow-up: pathology shows benign tumor. Plan to repeat brain imaging at [address] Hare will present to Tumor Board in case there is growth re options for treatment. 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 Levetiracetam D/C'd per Neurosurgery. Seizure precautions. * Constipation. Continue senna and polyethylene glycol. * Prophylaxis. High risk for DVT. Change to enoxaparin from heparin per his request to not have shots TID. Completed dexamethasone; d/c famotidine. * Pain control will be continued with hydrocodone/acetaminophen combination. He 's using it once per day. Attended staffing, 15 minutes. D/W case mgmt, nursing, PT, OT, ALTERATION INSPECTOR, pharmacist. Continue discharge goal of 08/11/16; [id number] approval from insurance company. Primary care provider is Dr. Armenta. Parents from [place] in [place] for next 6 months. 3 MIKI, 1/2 bath on first floor. 20 steps to 2nd floor. Need to involve family more in his care. Family conference 07/24/16. Continue discharge date of 08/11/16. 07/31/16 14:26 Subjective: No complaints. Still with some fatigue but improving. Objective: Vital Signs Temp Pulse Resp BP Pulse Ox 37.1 C 63 16 92/45 L 96 07/31/16 08:00 07/31/16 08:00 07/31/16 08:00 07/31/16 08:00 07/30/16 19:59 Laboratory Results 07/16/16 13:35 07/30/16 07/31/16 08/01/16 05:59 05:59 05:59 Intake Total 1597 1270 910 Output Total 400 Balance 1197 1270 910 - Time Spent With Patient Time Spent With Patient: Greater than 35 minutes floor time today, including more than 50% of time in coordination of care during staffing meeting, and counseling patient. Physical Exam - Physical Exam General Appearance: WD/WN, alert, no apparent distress Respiratory: No respiratory distress, No accessory muscle use Skin: normal color, warm/dry Neuro/Psych: alert, normal mood/affect, oriented x 3, motor weakness (LUE) ICD10 Worksheet Patient Problems: Problems Problem Status Onset Drowsiness Acute Hemiplegia affecting left nondominant side Acute Neoplasm of brain causing mass effect on adjacent structures Acute
[2016-08-01] MEDS: PETROLAT,WHT/MIN OIL/SOD CHL 3.5 GM OPHT.OINT EACHEYE PRN ×2 (01:57→21:29)
[2016-08-01] MEDS: CHOLECALCIFEROL VIT D3 1,000 UNITS TAB PO SCH (09:32)
[2016-08-01] MEDS: FLUoxetine 20 MG CAP PO SCH (09:33)
[2016-08-01] MEDS: POLYETHYLENE GLYCOL 3350 17 GM PKT PO SCH (09:33)
[2016-08-01] MEDS: ENOXAPARIN 40 MG/0.4 ML SYR SC SCH (09:33)
--- NOTE | 2016-08-01 14:49 | SOAPPROG ---
SOAP Progress Note Assessment/Plan: Assessment: 36 yo M s/p excision of a right temporal mass and perioperative cerebrovascular accident on 06/30/2016: * Left-sided hemiparesis and hemineglect. Initial FIM 47 on 07/07/16, improved to 58 on 07/14/16; 67 as of 07/21/16 and 83 as of 07/28/16, 88 on 07/31/16. Walked 200' CGA no device, but needs CGA because he can fall to the left and does not correct. 18 stairs, 1 rail, SBA. Continues to have decreased insight and needs supervision. Allow more independence in room to challenge, with discontinuation of alarms 07/31/16. Continue physical therapy and occupational therapy to optimize mobility and activities of daily living. Initiated fluoxetine for motor recovery, starting 10 mg QD on 07/09/16; increased to 20 mg QD on 07/17/16. * Dysphagia and cognitive/communication issues. Initially DD1 thin liq. advanced to DD2; and to DD3 on . Continue PROOF TECHNICIAN * Cognitive deficits. Continues dysexecutive. Continue PROOF TECHNICIAN. * Insomnia & fatigue. Much improved. Continue trazodone 25 - 50 mg QHS PRN starting 07/24/16. * Hypotension: Asymptomatic. Orthostatic by pulse. Appears to have adequate hydration per recorded I&O. BMP and TSH wnl. * Status post craniotomy and excision of brain tumor. Nursing care for wound healing. Completed dexamethasone taper 07/11/16. Will d/c famotidine. D/W Dr. Hare, Neurosurgery, 07/22/16, re follow-up: pathology shows benign tumor. Plan to repeat brain imaging at [address] Hare will present to Tumor Board in case there is growth re options for treatment. 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 Levetiracetam D/C'd per Neurosurgery. Seizure precautions. * Constipation. Continue senna and polyethylene glycol. * Prophylaxis. High risk for DVT. Change to enoxaparin from heparin per his request to not have shots TID. Completed dexamethasone; d/c famotidine. * Pain control will be continued with hydrocodone/acetaminophen combination. He 's using it once per day. Continue discharge goal of 08/11/16; [id number] approval from insurance company. Primary care provider is Dr. Armenta. Parents from [place] in [place] for next 6 months. 3 MIKI, 1/2 bath on first floor. 20 steps to 2nd floor. Need to involve family more in his care. Family conference 07/24/16. Continue discharge date of 08/11/16. 08/01/16 14:48 Subjective: No complaints. Reports he slept well last night w/out trazodone. Objective: Vital Signs Temp Pulse Resp BP Pulse Ox 36.5 C 84 16 95/61 L 96 08/01/16 08:00 08/01/16 08:00 08/01/16 08:00 08/01/16 08:00 08/01/16 08:00 Laboratory Results 07/16/16 13:35 07/31/16 08/01/16 08/02/16 05:59 05:59 05:59 Intake Total 1270 2350 400 Output Total 150 Balance 1270 2200 400 Physical Exam - Physical Exam General Appearance: WD/WN, alert, no apparent distress Respiratory: normal breath sounds, No crackles, No rhonchi, No wheezing Cardiac/Chest: regular rate, rhythm, No edema Skin: normal color, warm/dry Neuro/Psych: alert, normal mood/affect, oriented x 3, motor weakness (LUE & LLE) ICD10 Worksheet Patient Problems: Problems Problem Status Onset Drowsiness Acute Hemiplegia affecting left nondominant side Acute Neoplasm of brain causing mass effect on adjacent structures Acute
--- NOTE | 2016-08-02 07:35 | SOAPPROG ---
SOAP Progress Note Assessment/Plan: 36 yo M s/p excision of a right temporal mass and perioperative cerebrovascular accident on 06/30/2016: * Left-sided hemiparesis and hemineglect. Initial FIM 47 on 07/07/16, improved to 58 on 07/14/16; 67 as of 07/21/16 and 83 as of 07/28/16, 88 on 07/31/16. Walked 200' CGA no device, but needs CGA because he can fall to the left and does not correct. 18 stairs, 1 rail, SBA. Continues to have decreased insight and needs supervision. Allow more independence in room to challenge, with discontinuation of alarms 07/31/16. Continue physical therapy and occupational therapy to optimize mobility and activities of daily living. Initiated fluoxetine for motor recovery, starting 10 mg QD on 07/09/16; increased to 20 mg QD on 07/17/16. * Dysphagia and cognitive/communication issues. Initially DD1 thin liq. advanced to DD2; and to DD3 on . Continue TIRE CHANGER * Cognitive deficits. Continues dysexecutive. Continue TIRE CHANGER. * Insomnia & fatigue. Much improved. Continue trazodone 25 - 50 mg QHS PRN starting 07/24/16. * Hypotension: Asymptomatic. Orthostatic by pulse. Appears to have adequate hydration per recorded I&O. BMP and TSH wnl. * Status post craniotomy and excision of brain tumor. Nursing care for wound healing. Completed dexamethasone taper 07/11/16. Will d/c famotidine. D/W Dr. Hare, Neurosurgery, 07/22/16, re follow-up: pathology shows benign tumor. Plan to repeat brain imaging at [address] Hare will present to Tumor Board in case there is growth re options for treatment. 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 Levetiracetam D/C'd per Neurosurgery. Seizure precautions. * Constipation. Continue senna and polyethylene glycol. * Prophylaxis. High risk for DVT. Change to enoxaparin from heparin per his request to not have shots TID. Completed dexamethasone; d/c famotidine. * Pain control will be continued with hydrocodone/acetaminophen combination. He 's using it once per day. Continue discharge goal of 08/11/16; [id number] approval from insurance company. Primary care provider is Dr. Armenta. Parents from [place] in [place] for next 6 months. 3 MIKI, 1/2 bath on first floor. 20 steps to 2nd floor. Need to involve family more in his care. Had Family conference 07/24/16. Continue discharge date of 08/11/16. Subjective: No events. No complaints this am. Would like more OT in lieu of TIRE CHANGER, advised to discuss with therapy. No pain. Objective: Vital Signs Temp Pulse Resp BP Pulse Ox 36.8 C 61 16 99/52 L 94 08/02/16 05:51 08/02/16 05:51 08/02/16 05:51 08/02/16 05:51 08/02/16 05:51 Laboratory Results 07/16/16 13:35 08/01/16 08/02/16 08/03/16 05:59 05:59 05:59 Intake Total 2350 1000 Output Total 150 Balance 2200 1000 - Pending Discharge Pending Discharge Within 24 Hours: No Pending Discharge Within 48 Hours: No Physical Exam - Physical Exam General Appearance: alert, no apparent distress Neck: supple Respiratory: lungs clear, normal breath sounds Cardiac/Chest: regular rate, rhythm Abdomen: normal bowel sounds Skin: warm/dry Neuro/Psych: alert, normal mood/affect, oriented x 3, motor weakness (left arturo) , No speech abnormalities ICD10 Worksheet Patient Problems: Problems Problem Status Onset Drowsiness Acute Hemiplegia affecting left nondominant side Acute Neoplasm of brain causing mass effect on adjacent structures Acute
[2016-08-02] MEDS: CHOLECALCIFEROL VIT D3 1,000 UNITS TAB PO SCH (09:50)
[2016-08-02] MEDS: ENOXAPARIN 40 MG/0.4 ML SYR SC SCH (09:50)
[2016-08-02] MEDS: POLYETHYLENE GLYCOL 3350 17 GM PKT PO SCH (09:50)
[2016-08-02] MEDS: FLUoxetine 20 MG CAP PO SCH (09:51)
[2016-08-02] MEDS: PETROLAT,WHT/MIN OIL/SOD CHL 3.5 GM OPHT.OINT EACHEYE PRN (20:20)
--- NOTE | 2016-08-03 07:54 | SOAPPROG ---
SOAP Progress Note Assessment/Plan: 36 yo M s/p excision of a right temporal mass and perioperative cerebrovascular accident on 06/30/2016: * Left-sided hemiparesis and hemineglect. Initial FIM 47 on 07/07/16, improved to 58 on 07/14/16; 67 as of 07/21/16 and 83 as of 07/28/16, 88 on 07/31/16. Walked 200' CGA no device, but needs CGA because he can fall to the left and does not correct. 18 stairs, 1 rail, SBA. Continues to have decreased insight and needs supervision. Allow more independence in room to challenge, with discontinuation of alarms 07/31/16. Continue physical therapy and occupational therapy to optimize mobility and activities of daily living. Initiated fluoxetine for motor recovery, starting 10 mg QD on 07/09/16; increased to 20 mg QD on 07/17/16. * Dysphagia and cognitive/communication issues. Initially DD1 thin liq. advanced to DD2; and to DD3 on . Continue MORTGAGE ADVISOR * Cognitive deficits. Continues dysexecutive. Continue MORTGAGE ADVISOR. * Insomnia & fatigue. Much improved. Continue trazodone 25 - 50 mg QHS PRN starting 07/24/16. * Hypotension: Asymptomatic. Orthostatic by pulse. Appears to have adequate hydration per recorded I&O. BMP and TSH wnl. * Status post craniotomy and excision of brain tumor. Nursing care for wound healing. Completed dexamethasone taper 07/11/16. Will d/c famotidine. D/W Dr. Hare, Neurosurgery, 07/22/16, re follow-up: pathology shows benign tumor. Plan to repeat brain imaging at [address] Hare will present to Tumor Board in case there is growth re options for treatment. 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 Levetiracetam D/C'd per Neurosurgery. Seizure precautions. * Constipation. Continue senna and polyethylene glycol. * Prophylaxis. High risk for DVT. Change to enoxaparin from heparin per his request to not have shots TID. Completed dexamethasone; d/c famotidine. * Pain control will be continued with hydrocodone/acetaminophen combination. He 's using it once per day. Continue discharge goal of 08/11/16; [id number] approval from insurance company. Primary care provider is Dr. Armenta. Parents from [place] in [place] for next 6 months. 3 MIKI, 1/2 bath on first floor. 20 steps to 2nd floor. Need to involve family more in his care. Had Family conference 07/24/16. Continue discharge date of 08/11/16. Subjective: No events. Concerned about slow weight gain and poor appetite. Is gaining since admit. Denies n/v/chills/DRIVER. Objective: Vital Signs Temp Pulse Resp BP Pulse Ox 36.8 C 75 18 97/46 L 93 08/03/16 07:39 08/03/16 07:39 08/03/16 07:39 08/03/16 07:39 08/03/16 07:39 Laboratory Results 07/16/16 13:35 08/02/16 08/03/16 08/04/16 05:59 05:59 05:59 Intake Total 1000 1334 Balance 1000 1334 - Pending Discharge Pending Discharge Within 24 Hours: No Pending Discharge Within 48 Hours: No Physical Exam - Physical Exam General Appearance: alert, no apparent distress Neck: supple Respiratory: lungs clear, normal breath sounds Cardiac/Chest: regular rate, rhythm Abdomen: normal bowel sounds, soft Skin: warm/dry Neuro/Psych: alert, normal mood/affect, oriented x 3, motor weakness (left arturo) ICD10 Worksheet Patient Problems: Problems Problem Status Onset Drowsiness Acute Hemiplegia affecting left nondominant side Acute Neoplasm of brain causing mass effect on adjacent structures Acute
[2016-08-03] MEDS: POLYETHYLENE GLYCOL 3350 17 GM PKT PO SCH (09:26)
[2016-08-03] MEDS: CHOLECALCIFEROL VIT D3 1,000 UNITS TAB PO SCH (09:27)
[2016-08-03] MEDS: ENOXAPARIN 40 MG/0.4 ML SYR SC SCH (09:27)
[2016-08-03] MEDS: FLUoxetine 20 MG CAP PO SCH (09:27)
[2016-08-03] MEDS: PETROLAT,WHT/MIN OIL/SOD CHL 3.5 GM OPHT.OINT EACHEYE PRN (23:19)
[2016-08-04] MEDS: POLYETHYLENE GLYCOL 3350 17 GM PKT PO SCH (08:53)
[2016-08-04] MEDS: FLUoxetine 20 MG CAP PO SCH (08:54)
[2016-08-04] MEDS: CHOLECALCIFEROL VIT D3 1,000 UNITS TAB PO SCH (08:55)
[2016-08-04] MEDS: ENOXAPARIN 40 MG/0.4 ML SYR SC SCH (08:56)
--- NOTE | 2016-08-04 15:58 | SOAPPROG ---
SOAP Progress Note Assessment/Plan: 36 yo M s/p excision of a right temporal mass and perioperative cerebrovascular accident on 06/30/2016: * Left-sided hemiparesis and hemineglect. Initial FIM 47 on 07/07/16, improved to 58 on 07/14/16; 67 as of 07/21/16 and 83 as of 07/28/16, 88 on 07/31/16. Walked 200' CGA no device, but needs CGA because he can fall to the left and does not correct. 18 stairs, 1 rail, SBA. Continues to have decreased insight and needs supervision. Allow more independence in room to challenge, with discontinuation of alarms 07/31/16. Continue physical therapy and occupational therapy to optimize mobility and activities of daily living. Initiated fluoxetine for motor recovery, starting 10 mg QD on 07/09/16; increased to 20 mg QD on 07/17/16. * Dysphagia and cognitive/communication issues. Initially DD1 thin liq. advanced to DD2; and to DD3 on . Continue KENO WRITER/RUNNER * Cognitive deficits. Continues dysexecutive. Continue KENO WRITER/RUNNER. * Insomnia & fatigue. Much improved. Continue trazodone 25 - 50 mg QHS PRN starting 07/24/16. * Hypotension: Asymptomatic. Orthostatic by pulse. Appears to have adequate hydration per recorded I&O. BMP and TSH wnl. * Status post craniotomy and excision of brain tumor. Nursing care for wound healing. Completed dexamethasone taper 07/11/16. Will d/c famotidine. D/W Dr. Hare, Neurosurgery, 07/22/16, re follow-up: pathology shows benign tumor. Plan to repeat brain imaging at [address] Hare will present to Tumor Board in case there is growth re options for treatment. 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 Levetiracetam D/C'd per Neurosurgery. Seizure precautions. * Constipation. Continue senna and polyethylene glycol. * Prophylaxis. High risk for DVT. Change to enoxaparin from heparin per his request to not have shots TID. Completed dexamethasone; d/c famotidine. * Pain control will be continued with hydrocodone/acetaminophen combination. He 's using it once per day. Continue discharge goal of 08/11/16; [id number] approval from insurance company. Primary care provider is Dr. Armenta. Parents from [place] in [place] for next 6 months. 3 MIKI, 1/2 bath on first floor. 20 steps to 2nd floor. Need to involve family more in his care. Had Family conference 07/24/16. Continue discharge date of 08/11/16. Subjective: No events. No complaints this a.m. Denies pain/DRIVER/n/v. Objective: Vital Signs Temp Pulse Resp BP Pulse Ox 36.8 C 68 16 98/62 L 95 08/04/16 06:49 08/04/16 06:49 08/04/16 06:49 08/04/16 06:49 08/04/16 06:49 Laboratory Results 07/16/16 13:35 08/03/16 08/04/16 08/05/16 05:59 05:59 05:59 Intake Total 1334 1936 1147 Balance 1334 1936 1147 - Pending Discharge Pending Discharge Within 24 Hours: No Pending Discharge Within 48 Hours: No Physical Exam - Physical Exam General Appearance: alert, no apparent distress Neck: supple Respiratory: lungs clear, normal breath sounds Cardiac/Chest: regular rate, rhythm Abdomen: non-tender, soft Skin: warm/dry Neuro/Psych: alert, normal mood/affect, oriented x 3, motor weakness (left arturo) , cognition abnormalities (modest executive), No speech abnormalities ICD10 Worksheet Patient Problems: Problems Problem Status Onset Drowsiness Acute Hemiplegia affecting left nondominant side Acute Neoplasm of brain causing mass effect on adjacent structures Acute
[2016-08-04] MEDS: PETROLAT,WHT/MIN OIL/SOD CHL 3.5 GM OPHT.OINT EACHEYE PRN (21:19)
[2016-08-05] MEDS: FLUoxetine 20 MG CAP PO SCH (07:59)
[2016-08-05] MEDS: ENOXAPARIN 40 MG/0.4 ML SYR SC SCH (07:59)
[2016-08-05] MEDS: CHOLECALCIFEROL VIT D3 1,000 UNITS TAB PO SCH (08:00)
[2016-08-05] MEDS: POLYETHYLENE GLYCOL 3350 17 GM PKT PO SCH (08:02)
--- NOTE | 2016-08-05 09:57 | SOAPPROG ---
SOAP Progress Note Assessment/Plan: Assessment: 36 yo M s/p excision of a right temporal mass and perioperative cerebrovascular accident on 06/30/2016: * Left-sided hemiparesis and hemineglect. Initial FIM 47 on 07/07/16, improved to 58 on 07/14/16; 67 as of 07/21/16 and 83 as of 07/28/16, 88 on 07/31/16. Walked 200' CGA no device, but needs CGA because he can fall to the left and does not correct. 18 stairs, 1 rail, SBA. Continues to have decreased insight and needs supervision. Allow more independence in room to challenge, with discontinuation of alarms 07/31/16. Beginning to have return of movement LUE. Continue physical therapy and occupational therapy to optimize mobility and activities of daily living. Initiated fluoxetine for motor recovery, starting 10 mg QD on 07/09/16; increased to 20 mg QD on 07/17/16. * Dysphagia and cognitive/communication issues. Initially DD1 thin liq. advanced to DD2; and to DD3 on . Continue PROGRAM RESEARCH SPECIALIST * Cognitive deficits. Continues dysexecutive. Continue PROGRAM RESEARCH SPECIALIST. * Insomnia & fatigue. Much improved. Continue trazodone 25 - 50 mg QHS PRN starting 07/24/16; not used since 07/30/16. * Hypotension: Asymptomatic. Orthostatic by pulse. Appears to have adequate hydration per recorded I&O. BMP and TSH wnl. * Status post craniotomy and excision of brain tumor. Nursing care for wound healing. Completed dexamethasone taper 07/11/16. Will d/c famotidine. D/W Dr. Hare, Neurosurgery, 07/22/16, re follow-up: pathology shows benign tumor. Plan to repeat brain imaging at [address] Hare will present to Tumor Board in case there is growth re options for treatment. 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 Levetiracetam D/C'd per Neurosurgery. Seizure precautions. * Weight loss. Expect regain of weight as he resumes normal diet and activities. * Constipation. Continue senna and polyethylene glycol. * Prophylaxis. High risk for DVT. Change to enoxaparin from heparin per his request to not have shots TID. Completed dexamethasone; d/c famotidine. * Pain control will be continued with hydrocodone/acetaminophen combination. He 's using it once per day. Continue discharge goal of 08/11/16; [id number] approval from insurance company. Primary care provider is Dr. Armenta. Parents from [place] in [place] for next 6 months. 3 MIKI, 1/2 bath on first floor. 20 steps to 2nd floor. Need to involve family more in his care. Family conference 07/24/16. Continue discharge date of 08/11/16. 08/05/16 09:54 Subjective: Has return of movement at R elbow. Reporets that he's lost weight. Objective: Vital Signs Temp Pulse Resp BP Pulse Ox 36.9 C 74 16 97/59 L 96 08/05/16 07:27 08/05/16 07:27 08/05/16 07:27 08/05/16 07:27 08/05/16 07:27 Laboratory Results 07/16/16 13:35 08/04/16 08/05/16 08/06/16 05:59 05:59 05:59 Intake Total 1935 1983 Balance 1935 1983 Physical Exam - Physical Exam General Appearance: WD/WN, alert, no apparent distress, thin Respiratory: No respiratory distress, No accessory muscle use Skin: normal color, warm/dry Neuro/Psych: alert, normal mood/affect, oriented x 3, motor weakness (LUE with movement at elbow and minimal at shoulder; no movement at wrist of fingers.) ICD10 Worksheet Patient Problems: Problems Problem Status Onset Drowsiness Acute Hemiplegia affecting left nondominant side Acute Neoplasm of brain causing mass effect on adjacent structures Acute
[2016-08-05] MEDS: PETROLAT,WHT/MIN OIL/SOD CHL 3.5 GM OPHT.OINT EACHEYE PRN (21:58)
[2016-08-06] MEDS: FLUoxetine 20 MG CAP PO SCH (08:04)
[2016-08-06] MEDS: ENOXAPARIN 40 MG/0.4 ML SYR SC SCH (08:05)
[2016-08-06] MEDS: CHOLECALCIFEROL VIT D3 1,000 UNITS TAB PO SCH (08:05)
[2016-08-06] MEDS: POLYETHYLENE GLYCOL 3350 17 GM PKT PO SCH (11:36)
--- NOTE | 2016-08-06 13:27 | SOAPPROG ---
SOAP Progress Note Assessment/Plan: Assessment: 36 yo M s/p excision of a right temporal mass and perioperative cerebrovascular accident on 06/30/2016: * Left-sided hemiparesis and hemineglect. Initial FIM 47 on 07/07/16, improved to 58 on 07/14/16; 67 as of 07/21/16 and 83 as of 07/28/16, 88 on 07/31/16. Walked 200' CGA no device, but needs CGA because he can fall to the left and does not correct. 18 stairs, 1 rail, SBA. Continues to have decreased insight and needs supervision. Allow more independence in room to challenge, with discontinuation of alarms 07/31/16. Beginning to have return of movement LUE. Continue physical therapy and occupational therapy to optimize mobility and activities of daily living. Initiated fluoxetine for motor recovery, starting 10 mg QD on 07/09/16; increased to 20 mg QD on 07/17/16. * Increased tone LUE. Start baclofen 5 mg TID on 08/06/16. * Dysphagia and cognitive/communication issues. Initially DD1 thin liq. advanced to DD2; and to DD3 on . Continue MANAGER TRANSFER * Cognitive deficits. Continues dysexecutive. Continue MANAGER TRANSFER. * Insomnia & fatigue. Much improved. Continue trazodone 25 - 50 mg QHS PRN starting 07/24/16; not used since 07/30/16. * Hypotension: Asymptomatic. Orthostatic by pulse. Appears to have adequate hydration per recorded I&O. BMP and TSH wnl. * Status post craniotomy and excision of brain tumor. Nursing care for wound healing. Completed dexamethasone taper 07/11/16. Will d/c famotidine. D/W Dr. Hare, Neurosurgery, 07/22/16, re follow-up: pathology shows benign tumor. Plan to repeat brain imaging at [address] Hare will present to Tumor Board in case there is growth re options for treatment. 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 Levetiracetam D/C'd per Neurosurgery. Seizure precautions. * Weight loss. Expect regain of weight as he resumes normal diet and activities. * Constipation. Continue senna and polyethylene glycol. * Prophylaxis. Now independent mobility in room, and ambulating greater distances. > 5 weeks out from surgery. Will D/C enoxaparin 08/06/16. * Pain control will be continued with hydrocodone/acetaminophen combination. He 's not using it. Continue discharge goal of 08/11/16; [id number] approval from insurance company. Primary care provider is Dr. Armenta. Parents from [place] in [place] for next 6 months. 3 MIKI, 1/2 bath on first floor. 20 steps to 2nd floor. Continue discharge date of 08/11/16. 08/06/16 13:23 Subjective: Reports occasional spasms through his body. Happen unpredictably. They do not awaken him from sleep. Denies pain, f/c, dyspnea, cough. OT notes increased L bicep flexor tone, starting to interfere with therapies. Objective: Vital Signs Temp Pulse Resp BP Pulse Ox 36.6 C 81 18 102/60 97 08/05/16 18:27 08/05/16 18:27 08/05/16 18:27 08/05/16 18:27 08/05/16 18:27 Laboratory Results 07/16/16 13:35 08/05/16 08/06/16 08/07/16 05:59 05:59 05:59 Intake Total 1983 1090 240 Balance 1983 1090 240 Physical Exam - Physical Exam General Appearance: WD/WN, alert, no apparent distress, thin Respiratory: No respiratory distress, No accessory muscle use Skin: normal color, warm/dry Neuro/Psych: alert, normal mood/affect, oriented x 3, motor weakness (LUE) ICD10 Worksheet Patient Problems: Problems Problem Status Onset Drowsiness Acute Hemiplegia affecting left nondominant side Acute Neoplasm of brain causing mass effect on adjacent structures Acute
[2016-08-06] MEDS: BACLOFEN 10 MG TAB PO SCH (20:18)
[2016-08-07] MEDS: BACLOFEN 10 MG TAB PO SCH ×4 (00:53→21:19)
[2016-08-07] MEDS: FLUoxetine 20 MG CAP PO SCH (08:10)
[2016-08-07] MEDS: CHOLECALCIFEROL VIT D3 1,000 UNITS TAB PO SCH (08:10)
[2016-08-07] MEDS: POLYETHYLENE GLYCOL 3350 17 GM PKT PO SCH (10:23)
--- NOTE | 2016-08-07 10:32 | SOAPPROG ---
SOAP Progress Note Assessment/Plan: Assessment: 36 yo M s/p excision of a right temporal mass and perioperative cerebrovascular accident on 06/30/2016: 08/07/2016- Doing well and participating in therapies. Continues to be perseverative about his left arm function. counseled again today on prognosis and expected return of function in the short term, which is very limited. He does have increased elbow flexion, trace, which is encouraging. Encouraged patient and family to prepare for discharge including all modifications, railings for stairs at home. Remainder of plan below is unchanged. * Left-sided hemiparesis and hemineglect. Initial FIM 47 on 07/07/16, improved to 58 on 07/14/16; 67 as of 07/21/16 and 83 as of 07/28/16, 88 on 07/31/16. Walked 200' CGA no device, but needs CGA because he can fall to the left and does not correct. 18 stairs, 1 rail, SBA. Continues to have decreased insight and needs supervision. Allow more independence in room to challenge, with discontinuation of alarms 07/31/16. Beginning to have return of movement LUE. Continue physical therapy and occupational therapy to optimize mobility and activities of daily living. Initiated fluoxetine for motor recovery, starting 10 mg QD on 07/09/16; increased to 20 mg QD on 07/17/16. * Increased tone LUE. Started baclofen 5 mg TID on 08/06/16, monitor for effect and side effect. * Dysphagia and cognitive/communication issues. Initially DD1 thin liq. advanced to DD2; and to DD3 on . Continue HIGH SCHOOL COMBINATION TEACHER * Cognitive deficits. Continues dysexecutive. Continue HIGH SCHOOL COMBINATION TEACHER. * Insomnia & fatigue. Much improved. Continue trazodone 25 - 50 mg QHS PRN starting 07/24/16; rarely used. * Hypotension: Asymptomatic. Orthostatic by pulse. Appears to have adequate hydration per recorded I&O. BMP and TSH wnl. * Status post craniotomy and excision of brain tumor. Nursing care for wound healing. Completed dexamethasone taper 07/11/16. Will d/c famotidine. D/W Dr. Hare, Neurosurgery, 07/22/16, re follow-up: pathology shows benign tumor. Plan to repeat brain imaging at [address] Hare will present to Tumor Board in case there is growth re options for treatment. 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 Levetiracetam D/C'd per Neurosurgery. Seizure precautions. * Weight loss. Expect regain of weight as he resumes normal diet and activities. * Constipation. Continue senna and polyethylene glycol. * Prophylaxis. Now independent mobility in room, and ambulating greater distances. > 5 weeks out from surgery. Will D/C enoxaparin 08/06/16. * Pain control will be continued with hydrocodone/acetaminophen combination. Rarely used. Continue discharge goal of 08/11/16; [id number] approval from insurance company. Primary care provider is Dr. Armenta. Parents from [place] in [place] for next 6 months. 3 MIKI, 1/2 bath on first floor. 20 steps to 2nd floor. 08/07/16 10:28 Subjective: CC: Neurological recovery of left arm no acute events overnight. Sleeping well, participating with therapies. Family is engaged and at the bedside today. Patient is inquiring about recovery of left arm, he does note some trace movement in his elbow flexors. He does not notice much change in spasticity on the new dose of baclofen, 5 mg three times a day. He also does not note any sleepiness, or difficulty walking as a result of the baclofen. Home visit went well, need some railings for stairs. Denies any new numbness, tickling, or weakness. Objective: Vital Signs Temp Pulse Resp BP Pulse Ox 36.6 C 77 16 82/49 L 94 08/07/16 06:26 08/07/16 06:26 08/07/16 06:26 08/07/16 06:26 08/07/16 06:26 Laboratory Results 07/16/16 13:35 08/06/16 08/07/16 08/08/16 05:59 05:59 05:59 Intake Total 1090 576 360 Balance 1090 576 360 Physical Exam - Physical Exam General Appearance: WD/WN, alert, no apparent distress EENT: No scleral icterus (R), No scleral icterus (L) Respiratory: No respiratory distress, No accessory muscle use Cardiac/Chest: regular rate, rhythm, No edema Skin: normal color, warm/dry, No cyanosis Extremities: other ( Left-sided AFO fitting well, no skin breakdown), No pedal edema, No swelling Neuro/Psych: alert, normal mood/affect, other ( left-sided motor weakness, continues to have virtually no movement in the left arm but now has trace elbow flexion, 1/5 on the left, some shoulder girdle retraction) ICD10 Worksheet Patient Problems: Problems Problem Status Onset Drowsiness Acute Hemiplegia affecting left nondominant side Acute Neoplasm of brain causing mass effect on adjacent structures Acute - ICD10 Problem Qualifiers (1) Drowsiness (2) Hemiplegia affecting left nondominant side Qualifiers: Hemiplegia type: flaccid Hemiplegia etiology: non-cerebrovascular Cerebrovascular disease type: C Qualified Code(s): 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
[2016-08-07] MEDS: PETROLAT,WHT/MIN OIL/SOD CHL 3.5 GM OPHT.OINT EACHEYE PRN (21:21)
[2016-08-08] MEDS: FLUoxetine 20 MG CAP PO SCH (08:21)
[2016-08-08] MEDS: CHOLECALCIFEROL VIT D3 1,000 UNITS TAB PO SCH (08:21)
[2016-08-08] MEDS: BACLOFEN 10 MG TAB PO SCH ×3 (08:23→21:12)
[2016-08-08] MEDS: POLYETHYLENE GLYCOL 3350 17 GM PKT PO SCH (08:24)
--- NOTE | 2016-08-08 13:22 | SOAPPROG ---
SOAP Progress Note Assessment/Plan: Assessment: 36 yo M s/p excision of a right temporal mass and perioperative cerebrovascular accident on 06/30/2016: * Left-sided hemiparesis and hemineglect. Initial FIM 47 on 07/07/16, improved to 58 on 07/14/16; 67 as of 07/21/16 and 83 as of 07/28/16, 87 on 07/31/16, 88 on 08/07. Walked 200' CGA no device, but needs CGA because he can fall to the left and does not correct. 18 stairs, 1 rail, SBA. Functionally worse with less structure, e.g. re problem solving to get dressed. Continues to have decreased insight and needs supervision. Beginning to have return of movement LUE. Continue physical therapy and occupational therapy to optimize mobility and activities of daily living. Initiated fluoxetine for motor recovery, starting 10 mg QD on 07/09/16; increased to 20 mg QD on 07/17/16. * Increased tone LUE. Started baclofen 5 mg TID on 08/06/16. Hypertonicity has resolved and ambulation was not affected. * Dysphagia. Initially DD1 thin liq. advanced to DD2; and to DD3 on . Continue COLLAR BASTER JUMPBASTING * Cognitive deficits. Continues dysexecutive. Continue COLLAR BASTER JUMPBASTING. Chronic/stable conditions: * Insomnia & fatigue. Much improved. Continue trazodone 25 - 50 mg QHS PRN starting 07/24/16; not used since 07/30/16. * Hypotension: Asymptomatic. Orthostatic by pulse. Appears to have adequate hydration per recorded I&O. BMP and TSH wnl. * Status post craniotomy and excision of brain tumor. Nursing care for wound healing. Completed dexamethasone taper 07/11/16. Will d/c famotidine. D/W Dr. Hare, Neurosurgery, 07/22/16, re follow-up: pathology shows benign tumor. Plan to repeat brain imaging at [address] Hare will present to Tumor Board in case there is growth re options for treatment. 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 Levetiracetam D/C'd per Neurosurgery. Seizure precautions. * Weight loss. Expect regain of weight as he resumes normal diet and activities. * Constipation. Continue senna and polyethylene glycol. * Prophylaxis. Now independent mobility in room, and ambulating greater distances. > 5 weeks out from surgery. Will D/C enoxaparin 08/06/16. * Pain has resolved. Continue discharge goal of 08/11/16; [id number] approval from insurance company. Primary care provider is Dr. Armenta. Parents from [place] in [place] for next 6 months. 3 MIKI, 1/2 bath on first floor. 20 steps to 2nd floor. Continue discharge date of 08/11/16. 08/08/16 13:19 Subjective: No complaints. Reports he's using his L arm/hand. Denies pain, f/c, cough, dyspnea. Objective: Vital Signs Temp Pulse Resp BP Pulse Ox 36.8 C 64 15 89/55 L 94 08/08/16 07:07 08/08/16 07:07 08/08/16 07:07 08/08/16 07:07 08/08/16 07:07 Laboratory Results 07/16/16 13:35 08/07/16 08/08/16 08/09/16 05:59 05:59 05:59 Intake Total 576 1300 400 Balance 576 1300 400 Physical Exam - Physical Exam General Appearance: WD/WN, alert, no apparent distress Respiratory: No respiratory distress, No accessory muscle use Skin: normal color, warm/dry Neuro/Psych: alert, normal mood/affect, oriented x 3, motor weakness (LUE flaccid paralysis, no increased tone. Moves it with his R hand but does not appear to have true functional use of LUE.) ICD10 Worksheet Patient Problems: Problems Problem Status Onset Drowsiness Acute Hemiplegia affecting left nondominant side Acute Neoplasm of brain causing mass effect on adjacent structures Acute
[2016-08-08] MEDS: PETROLAT,WHT/MIN OIL/SOD CHL 3.5 GM OPHT.OINT EACHEYE PRN (21:12)
[2016-08-09] MEDS: POLYETHYLENE GLYCOL 3350 17 GM PKT PO SCH (08:38)
[2016-08-09] MEDS: BACLOFEN 10 MG TAB PO SCH ×3 (08:39→20:43)
[2016-08-09] MEDS: FLUoxetine 20 MG CAP PO SCH (08:39)
[2016-08-09] MEDS: CHOLECALCIFEROL VIT D3 1,000 UNITS TAB PO SCH (08:39)
--- NOTE | 2016-08-09 09:49 | SOAPPROG ---
SOAP Progress Note Assessment/Plan: Assessment: 36 yo M s/p excision of a right temporal mass and perioperative cerebrovascular accident on 06/30/2016: * Left-sided hemiparesis and hemineglect. PATIENT MOST LIKELY WILL NEED QUAD CANE UNTIL HIS LUE/LLE STRENGTH AND CORE STABILITY IMPROVES. I Initial FIM 47 on 07/07/16, improved to 58 on 07/14/16; 67 as of 07/21/16 and 83 as of 07/28/16, 87 on 07/31/16, 88 on 08/07/16. Walked 200' CGA no device, but needs CGA because he can fall to the left and does not correct. 18 stairs, 1 rail, SBA. Functionally worse with less structure, e.g. re problem solving to get dressed. Continues to have decreased insight and needs supervision. Beginning to have return of movement LUE. Continue physical therapy and occupational therapy to optimize mobility and activities of daily living. Initiated fluoxetine for motor recovery, starting 10 mg QD on 07/09/16; increased to 20 mg QD on 07/17/16. * Increased tone LUE. Started baclofen 5 mg TID on 08/06/16. LUE IS HYPERTONIC- CONSIDER INCREASING BACLOFEN. Hypertonicity has resolved and ambulation was not affected. * Dysphagia. Initially DD1 thin liq. advanced to DD2; and to DD3 on . Continue ACQUISITION MANAGER * Cognitive deficits. Continues dysexecutive. Continue ACQUISITION MANAGER. Chronic/stable conditions: * Insomnia & fatigue. Much improved. Continue trazodone 25 - 50 mg QHS PRN starting 07/24/16; not used since 07/30/16. * Hypotension: Asymptomatic. Orthostatic by pulse. Appears to have adequate hydration per recorded I&O. BMP and TSH wnl. * Status post craniotomy and excision of brain tumor. Nursing care for wound healing. Completed dexamethasone taper 07/11/16. Will d/c famotidine. D/W Dr. Hare, Neurosurgery, 07/22/16, re follow-up: pathology shows benign tumor. Plan to repeat brain imaging at [address] Hare will present to Tumor Board in case there is growth re options for treatment. 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 Levetiracetam D/C'd per Neurosurgery. Seizure precautions. * Weight loss. Expect regain of weight as he resumes normal diet and activities. * Constipation. Continue senna and polyethylene glycol. * Prophylaxis. Now independent mobility in room, and ambulating greater distances. > 5 weeks out from surgery. Will D/C enoxaparin 08/06/16. * Pain has resolved. Continue discharge goal of 08/11/16; [id number] approval from insurance company. Plan: Subjective: No c/O PER PATIENT OR NURSING Objective: Vital Signs Temp Pulse Resp BP Pulse Ox 36.8 C 77 13 97/69 L 93 08/09/16 07:49 08/09/16 07:49 08/09/16 07:49 08/09/16 07:49 08/09/16 07:49 Laboratory Results 07/16/16 13:35 08/08/16 08/09/16 08/10/16 05:59 05:59 05:59 Intake Total 1300 700 350 Balance 1300 700 350 Physical Exam - Physical Exam General Appearance: WD/WN, alert, no apparent distress Respiratory: lungs clear, normal breath sounds Cardiac/Chest: No edema Abdomen: non-tender, soft Skin: warm/dry Extremities: No normal range of motion (DECREASED LUE ROM SECONDARY TO HYPERTONICITY. MILD LEFT GLENOHUMERAL SUBLUXATION, NON PAINFUL TO PALPATION) ICD10 Worksheet Patient Problems: Problems Problem Status Onset Drowsiness Acute Hemiplegia affecting left nondominant side Acute Neoplasm of brain causing mass effect on adjacent structures Acute
[2016-08-10] MEDS: BACLOFEN 10 MG TAB PO SCH ×3 (08:06→21:49)
[2016-08-10] MEDS: CHOLECALCIFEROL VIT D3 1,000 UNITS TAB PO SCH (08:06)
[2016-08-10] MEDS: FLUoxetine 20 MG CAP PO SCH (08:06)
[2016-08-10] MEDS: POLYETHYLENE GLYCOL 3350 17 GM PKT PO SCH (08:07)
--- NOTE | 2016-08-10 09:50 | SOAPPROG ---
SOAP Progress Note Assessment/Plan: Assessment: 36 yo M s/p excision of a right temporal mass and perioperative cerebrovascular accident on 06/30/2016: * Left-sided hemiparesis and hemineglect. PATIENT MOST LIKELY WILL NEED QUAD CANE UNTIL HIS LUE/LLE STRENGTH AND CORE STABILITY IMPROVES. I Initial FIM 47 on 07/07/16, improved to 58 on 07/14/16; 67 as of 07/21/16 and 83 as of 07/28/16, 87 on 07/31/16, 88 on 08/07/16. Walked 200' CGA no device, but needs CGA because he can fall to the left and does not correct. 18 stairs, 1 rail, SBA. Functionally worse with less structure, e.g. re problem solving to get dressed. Continues to have decreased insight and needs supervision. Beginning to have return of movement LUE. Continue physical therapy and occupational therapy to optimize mobility and activities of daily living. Initiated fluoxetine for motor recovery, starting 10 mg QD on 07/09/16; increased to 20 mg QD on 07/17/16. * Increased tone LUE. Started baclofen 5 mg TID on 08/06/16. LUE IS HYPERTONIC- CONSIDER INCREASING BACLOFEN. Hypertonicity has resolved and ambulation was not affected. * Dysphagia. Initially DD1 thin liq. advanced to DD2; and to DD3 on . Continue LABORATORY SPECIALIST * Cognitive deficits. Continues dysexecutive. Continue LABORATORY SPECIALIST. * LEFT FOOT DROP- CURRENT AFO SHOULD BE ADJUSTED OR REPLACED WITH ONE THAT PROVIDES GREATER ANKLE DFA Chronic/stable conditions: * Insomnia & fatigue. Much improved. Continue trazodone 25 - 50 mg QHS PRN starting 07/24/16; not used since 07/30/16. * Hypotension: Asymptomatic. Orthostatic by pulse. Appears to have adequate hydration per recorded I&O. BMP and TSH wnl. * Status post craniotomy and excision of brain tumor. Nursing care for wound healing. Completed dexamethasone taper 07/11/16. Will d/c famotidine. D/W Dr. Hare, Neurosurgery, 07/22/16, re follow-up: pathology shows benign tumor. Plan to repeat brain imaging at [address] Hare will present to Tumor Board in case there is growth re options for treatment. 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 Levetiracetam D/C'd per Neurosurgery. Seizure precautions. * Weight loss. Expect regain of weight as he resumes normal diet and activities. * Constipation. Continue senna and polyethylene glycol. * Prophylaxis. Now independent mobility in room, and ambulating greater distances. > 5 weeks out from surgery. Will D/C enoxaparin 08/06/16. * Pain has resolved. Continue discharge goal of 08/11/16; [id number] approval from insurance company. Plan: 08/10/16 09:49 Subjective: No c/o this am Objective: Vital Signs Temp Pulse Resp BP Pulse Ox 37.1 C 64 15 96/60 L 95 08/10/16 07:15 08/10/16 07:15 08/10/16 07:15 08/10/16 07:15 08/10/16 07:15 Laboratory Results 07/16/16 13:35 08/09/16 08/10/16 08/11/16 05:59 05:59 05:59 Intake Total 700 1126 Balance 700 1126 Physical Exam - Physical Exam General Appearance: WD/WN, alert, no apparent distress EENT: PERRL/EOMI Respiratory: chest non-tender, lungs clear, normal breath sounds Cardiac/Chest: No edema Abdomen: non-tender, soft Skin: warm/dry, other (scalp incision with small area of bleeding due to scab. No erythema.) Neuro/Psych: alert, motor weakness (LUE WEAKNESS>>LLE weakness. Has some return , 3+/5 left biceps. left foot drop. LEFT AFO DOES NOT SEEM TO BE ENGAGING TO FULL EXTENT) ICD10 Worksheet Patient Problems: Problems Problem Status Onset Drowsiness Acute Hemiplegia affecting left nondominant side Acute Neoplasm of brain causing mass effect on adjacent structures Acute
[2016-08-10] MEDS: PETROLAT,WHT/MIN OIL/SOD CHL 3.5 GM OPHT.OINT EACHEYE PRN (21:50)
--- NOTE | 2016-08-11 11:46 | SOAPPROG ---
SOAP Progress Note Assessment/Plan: Assessment: 36 yo M s/p excision of a right temporal mass and perioperative cerebrovascular accident on 06/30/2016: * Left-sided hemiparesis and hemineglect. Initial FIM 47 on 07/07/16, improved to 58 on 07/14/16; 67 as of 07/21/16 and 83 as of 07/28/16, 87 on 07/31/16, 88 on 08/07, 91 of 08/11/16. Walked 200' SBA/CGA. 18 stairs, 1 rail, SBA. Functionally worse with less structure, e.g. re problem solving to get dressed. Continues to have decreased insight and needs supervision. Beginning to have return of movement LUE. Continue physical therapy and occupational therapy to optimize mobility and activities of daily living. Initiated fluoxetine for motor recovery, starting 10 mg QD on 07/09/16; increased to 20 mg QD on 07/17/16. * Increased tone LUE. Started baclofen 5 mg TID on 08/06/16. Hypertonicity has resolved and ambulation was not affected. * Cognitive deficits. Continues dysexecutive. Continue FIELD SUPPORT ENGINEER. Chronic/stable conditions: * Dysphagia. Initially DD1 thin liq. advanced to DD2; and to DD3 on ; now on regular texture/thin liquids.. Continue FIELD SUPPORT ENGINEER * Insomnia & fatigue. Much improved. Continue trazodone 25 - 50 mg QHS PRN starting 07/24/16; not used since 07/30/16. * Hypotension: Asymptomatic. Orthostatic by pulse. Appears to have adequate hydration per recorded I&O. BMP and TSH wnl. * Status post craniotomy and excision of brain tumor. Nursing care for wound healing. Completed dexamethasone taper 07/11/16. Will d/c famotidine. D/W Dr. Hare, Neurosurgery, 07/22/16, re follow-up: pathology shows benign tumor. Plan to repeat brain imaging at [address] Hare will present to Tumor Board in case there is growth re options for treatment. 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 Levetiracetam D/C'd per Neurosurgery. Seizure precautions. * Weight loss. Expect regain of weight as he resumes normal diet and activities. * Constipation. Continue senna and polyethylene glycol. * Prophylaxis. Now independent mobility in room, and ambulating greater distances. > 5 weeks out from surgery. Will D/C enoxaparin 08/06/16. * Pain has resolved. Continue discharge goal of 08/11/16; [id number] approval from insurance company. Primary care provider is Dr. Armenta. Parents from [place] in [place] for next 6 months. 3 MIKI, 1/2 bath on first floor. 20 steps to 2nd floor. Needs more family involvement towards discharge to home, and 2nd rail added stairs and DME obtained. Discharge home vs. SNF, 08/15/16. 08/11/16 11:42 Subjective: Wonders if AFO is working correctly. Notices some foot drag with ambulation. Has some return of L bicep. Objective: Vital Signs Temp Pulse Resp BP Pulse Ox 36.8 C 65 15 114/67 96 08/10/16 18:30 08/10/16 18:30 08/10/16 18:30 08/10/16 18:30 08/10/16 18:30 Laboratory Results 07/16/16 13:35 08/10/16 08/11/16 08/12/16 05:59 05:59 05:59 Intake Total 1126 900 360 Balance 1126 900 360 - Time Spent With Patient Time Spent With Patient: Greater than 35 minutes floor time today, including more than 50% of time in coordination of care during staffing, and counseling patient. Physical Exam - Physical Exam General Appearance: WD/WN, alert, no apparent distress Respiratory: No respiratory distress, No accessory muscle use Cardiac/Chest: No edema Skin: No normal color, No warm/dry Neuro/Psych: alert, normal mood/affect, oriented x 3, motor weakness (Able to arise from seated and ambulate in room with trekking pole; has foot drag despite AFO.) ICD10 Worksheet Patient Problems: Problems Problem Status Onset Drowsiness Acute Hemiplegia affecting left nondominant side Acute Neoplasm of brain causing mass effect on adjacent structures Acute
[2016-08-11] MEDS: BACLOFEN 10 MG TAB PO SCH ×3 (13:29→21:22)
[2016-08-11] MEDS: CHOLECALCIFEROL VIT D3 1,000 UNITS TAB PO SCH (13:29)
[2016-08-11] MEDS: FLUoxetine 20 MG CAP PO SCH (13:30)
[2016-08-11] MEDS: POLYETHYLENE GLYCOL 3350 17 GM PKT PO SCH (13:30)
[2016-08-11] MEDS: PETROLAT,WHT/MIN OIL/SOD CHL 3.5 GM OPHT.OINT EACHEYE PRN (21:23)
[2016-08-12] MEDS: FLUoxetine 20 MG CAP PO SCH (08:13)
[2016-08-12] MEDS: BACLOFEN 10 MG TAB PO SCH ×2 (08:13→21:05)
[2016-08-12] MEDS: POLYETHYLENE GLYCOL 3350 17 GM PKT PO SCH (08:14)
[2016-08-12] MEDS: CHOLECALCIFEROL VIT D3 1,000 UNITS TAB PO SCH (08:14)
--- NOTE | 2016-08-12 14:10 | PDOREHIP ---
Admission [facility] - Admission - 3 Day Assessment Period Admission Date/Day 1: 07/04/16 Day 2: 07/05/16 Day 3: 07/06/16 Discharge [facility] - Discharge - 3 Day Assessment Period 2 Days Prior to Anticipated Discharge Date: 08/16/16 1 Day Prior to Anticipated Discharge Date: 08/17/16 Anticipated Discharge Date: 08/18/16 - Discharge Skin Conditions Unhealed Pressure Ulcer (1 or more/Stage 1 or >)-Discharge: 0. No
--- NOTE | 2016-08-12 15:52 | SOAPPROG ---
SOAP Progress Note Assessment/Plan: Assessment: 36 yo M s/p excision of a right temporal mass and perioperative cerebrovascular accident on 06/30/2016: 08/12/2016 doing well, starting to plan for discharge. A total of 25 minutes was spent on the floor in the care of the patient today the majority of which was spent in the counseling and coordination of care regarding discharge planning and spasticity management options. Overall, patient doing well, planning to discharge home versus a intermediate facility, discharge date changed from tomorrow until 08/15/2016. Decreasing baclofen to 5 mg PO BID to try to minimize impact on gait. Counseled him to be mindful of using his walking stick at all times. * Left-sided hemiparesis and hemineglect. Initial FIM 47 on 07/07/16, improved to 58 on 07/14/16; 67 as of 07/21/16 and 83 as of 07/28/16, 87 on 07/31/16, 88 on 08/07, 91 of 08/11/16. Walked 200' SBA/CGA. 18 stairs, 1 rail, SBA. Functionally worse with less structure, e.g. re problem solving to get dressed. Continues to have decreased insight and needs supervision. Beginning to have return of movement LUE. Continue physical therapy and occupational therapy to optimize mobility and activities of daily living. Initiated fluoxetine for motor recovery, starting 10 mg QD on 07/09/16; increased to 20 mg QD on 07/17/16. * Increased tone LUE. Upper limb spasticity improved with baclofen the 5 mg TID, however it began impairing his leg function in gait training. Decreased to 5 mg PO BID on 08/12/2016. * Cognitive deficits. Continues dysexecutive. Continue SUPERVISOR SOLDERING. Chronic/stable conditions: * Dysphagia. Initially DD1 thin liq. advanced to DD2; and to DD3 on ; now on regular texture/thin liquids.. Continue SUPERVISOR SOLDERING * Insomnia & fatigue. Much improved. Continue trazodone 25 - 50 mg QHS PRN starting 07/24/16; not used since 07/30/16. * Hypotension: Asymptomatic. Orthostatic by pulse. Appears to have adequate hydration per recorded I&O. BMP and TSH wnl. * Status post craniotomy and excision of brain tumor. Nursing care for wound healing. Completed dexamethasone taper 07/11/16. Will d/c famotidine. D/W Dr. Hare, Neurosurgery, 07/22/16, re follow-up: pathology shows benign tumor. Plan to repeat brain imaging at [address] Hare will present to Tumor Board in case there is growth re options for treatment. 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 Levetiracetam D/C'd per Neurosurgery. Seizure precautions. * Weight loss. Expect regain of weight as he resumes normal diet and activities. * Constipation. Continue senna and polyethylene glycol. * Prophylaxis. Now independent mobility in room, and ambulating greater distances. > 5 weeks out from surgery. D/C enoxaparin 08/06/16. * Pain has resolved. Continue discharge goal of 08/11/16; [id number] approval from insurance company. Primary care provider is Dr. Armenta. Parents from [place] in [place] for next 6 months. 3 MKII, 1/2 bath on first floor. 20 steps to 2nd floor. Needs more family involvement towards discharge to home, and 2nd rail added stairs and DME obtained. Discharge home vs. SNF, 08/15/16. 08/07/16 10:28 08/12/16 15:48 Subjective: CC: Spasticity Patient notes that although the arm spasticity has improved on baclofen 5 mg three times a day, is impairing his walking and gait training in therapy. He would like to decrease the dose somewhat. Additionally, patient was advised by Reina of nursing to be mindful of using his walking stick when he was observed getting out of his chair without it. Denies any shortness of breath, chest pain , sleeping difficulty, or new numbness, tingling, or weakness. Social work is working with patient and family on discharge planning. Objective: Vital Signs Temp Pulse Resp BP Pulse Ox 36.7 C 57 L 14 87/44 L 95 08/12/16 06:56 08/12/16 06:56 08/12/16 06:56 08/12/16 06:56 08/12/16 06:56 Laboratory Results 07/16/16 13:35 08/11/16 08/12/16 08/13/16 05:59 05:59 05:59 Intake Total 900 940 600 Balance 900 940 600 Physical Exam - Physical Exam General Appearance: WD/WN, alert, no apparent distress EENT: No scleral icterus (R), No scleral icterus (L) Respiratory: normal breath sounds, No respiratory distress, No accessory muscle use Skin: normal color, warm/dry, No cyanosis Extremities: No pedal edema, No swelling Neuro/Psych: alert, normal mood/affect, other ( Continued hemiparesis, dense in the upper limb.) ICD10 Worksheet Patient Problems: Problems Problem Status Onset Drowsiness Acute Hemiplegia affecting left nondominant side Acute Neoplasm of brain causing mass effect on adjacent structures Acute - ICD10 Problem Qualifiers (1) Drowsiness (2) Hemiplegia affecting left nondominant side Qualifiers: Hemiplegia type: flaccid Hemiplegia etiology: non-cerebrovascular Cerebrovascular disease type: C Qualified Code(s): 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
[2016-08-12] MEDS: PETROLAT,WHT/MIN OIL/SOD CHL 3.5 GM OPHT.OINT EACHEYE PRN (21:05)
[2016-08-13] MEDS: POLYETHYLENE GLYCOL 3350 17 GM PKT PO SCH (09:14)
[2016-08-13] MEDS: BACLOFEN 10 MG TAB PO SCH ×2 (09:15→20:29)
[2016-08-13] MEDS: CHOLECALCIFEROL VIT D3 1,000 UNITS TAB PO SCH (09:16)
[2016-08-13] MEDS: FLUoxetine 20 MG CAP PO SCH (09:16)
[2016-08-13] MEDS: PETROLAT,WHT/MIN OIL/SOD CHL 3.5 GM OPHT.OINT EACHEYE PRN (20:30)
[2016-08-14] MEDS: FLUoxetine 20 MG CAP PO SCH (08:44)
[2016-08-14] MEDS: CHOLECALCIFEROL VIT D3 1,000 UNITS TAB PO SCH (08:44)
[2016-08-14] MEDS: BACLOFEN 10 MG TAB PO SCH ×2 (08:44→20:01)
[2016-08-14] MEDS: POLYETHYLENE GLYCOL 3350 17 GM PKT PO SCH (10:42)
--- NOTE | 2016-08-14 11:25 | SOAPPROG ---
[facility] Progress Note Assessment/Plan: Assessment: 36 yo M s/p excision of a right temporal mass and perioperative cerebrovascular accident on 06/30/2016: 08/14/2016- Patient is doing well, planning for discharge home tomorrow. No new concerns, making great progress in therapy. He has a considerably wider affect than when I first met him. Focus on discharge planning today. Additionally, he notes that it has been somewhat more difficult to walk since initiation of the baclofen, we are holding the morning dose today and could consider stopping it entirely if he notes improvement in therapy. Otherwise we could continue a low dose at 5 mg once or twice a day as needed. * Left-sided hemiparesis and hemineglect. Initial FIM 47 on 07/07/16, improved to 58 on 07/14/16; 67 as of 07/21/16 and 83 as of 07/28/16, 87 on 07/31/16, 88 on 08/07, 91 of 08/11/16. Walked 200' SBA/CGA. 18 stairs, 1 rail, SBA. Functionally worse with less structure, e.g. re problem solving to get dressed. Continues to have decreased insight and needs supervision. Beginning to have return of movement LUE. Continue physical therapy and occupational therapy to optimize mobility and activities of daily living. Initiated fluoxetine for motor recovery, starting 10 mg QD on 07/09/16; increased to 20 mg QD on 07/17/16. * Increased tone LUE. Upper limb spasticity improved with baclofen the 5 mg TID, however it began impairing his leg function in gait training. Decreased to 5 mg PO BID on 08/12/2016, Holding on the morning of 08/14/2016. * Cognitive deficits. Continues dysexecutive. Continue CONTAINERS SALES REPRESENTATIVE. Chronic/stable conditions: * Dysphagia. Initially DD1 thin liq. advanced to DD2; and to DD3 on ; now on regular texture/thin liquids.. Continue CONTAINERS SALES REPRESENTATIVE * Insomnia & fatigue. Much improved. Continue trazodone 25 - 50 mg QHS PRN starting 07/24/16; not used since 07/30/16. * Hypotension: Asymptomatic. Orthostatic by pulse. Appears to have adequate hydration per recorded I&O. BMP and TSH wnl. * Status post craniotomy and excision of brain tumor. Nursing care for wound healing. Completed dexamethasone taper 07/11/16. Will d/c famotidine. D/W Dr. Hare, Neurosurgery, 07/22/16, re follow-up: pathology shows benign tumor. Plan to repeat brain imaging at [address] Hare will present to Tumor Board in case there is growth re options for treatment. 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 Levetiracetam D/C'd per Neurosurgery. Seizure precautions. * Weight loss. Expect regain of weight as he resumes normal diet and activities. * Constipation. Continue senna and polyethylene glycol. * Prophylaxis. Now independent mobility in room, and ambulating greater distances. > 5 weeks out from surgery. D/C enoxaparin 08/06/16. * Pain has resolved. Continue discharge goal of 08/11/16; [id number] approval from insurance company. Primary care provider is Dr. Armenta. Parents from [place] in [place] for next 6 months. 3 MIKI, 1/2 bath on first floor. 20 steps to 2nd floor. Needs more family involvement towards discharge to home, and 2nd rail added stairs and DME obtained. Discharge home vs. SNF, 08/15/16. 08/07/16 10:28 08/12/16 15:48 08/14/16 11:22 Subjective: CC: Spasticity management no acute events overnight. Patient notes that in therapy he still has some difficulty walking since starting the baclofen, feels the two are directly related. He notes that the spasticity in his upper limb is better, not interfering with function at this point. Discussed possibility of holding baclofen this morning to see how things going therapy, potentially permanently discontinuing the baclofen, would likely still sent him with a prescription that he could initiate if spasticity in the upper limb is sufficiently bad. otherwise no new numbness, tingling, or weakness, feels that therapy is going well and looking forward to discharge home Objective: Vital Signs Temp Pulse Resp BP Pulse Ox 36.5 C 75 16 93/57 L 97 08/13/16 18:38 08/13/16 18:38 08/13/16 18:38 08/13/16 18:38 08/13/16 18:38 Laboratory Results 07/16/16 13:35 08/13/16 08/14/16 08/15/16 05:59 05:59 05:59 Intake Total 1300 400 100 Balance 1300 400 100 Physical Exam - Physical Exam General Appearance: WD/WN, alert, no apparent distress Respiratory: No respiratory distress, No accessory muscle use Cardiac/Chest: normal peripheral pulses Skin: normal color, warm/dry, No cyanosis Neuro/Psych: alert, normal mood/affect, motor weakness (left hemiparesis with some spasticity, 2 MAS, in a giv eve sling. 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
[2016-08-15 06:33] VITALS: BP 89/57; PULSE 62; RESP 14; TEMP 98.2; O2SAT 95
[2016-08-15] MEDS: FLUoxetine 20 MG CAP PO SCH (08:31)
[2016-08-15] MEDS: BACLOFEN 10 MG TAB PO SCH (08:31)
[2016-08-15] MEDS: CHOLECALCIFEROL VIT D3 1,000 UNITS TAB PO SCH (08:31)
[2016-08-15] MEDS: POLYETHYLENE GLYCOL 3350 17 GM PKT PO SCH (08:32)
--- NOTE | 2016-08-15 15:40 | GDS ---
[f rep st] DISCHARGE SUMMARY ADMITTING DIAGNOSES: 1. Debility status post craniotomy. 2. Excision of a right temporal mass. 3. Perioperative cerebrovascular accident. DISCHARGE DIAGNOSES: 1. Debility status post craniotomy. 2. Excision of a right temporal mass. 3. Perioperative cerebrovascular accident. CONSULTATIONS: There were none. PROCEDURES: There were none. COMPLICATIONS: There were none. HISTORY AND HOSPITAL COURSE: Patient came to inpatient rehabilitation from [facility] after excision of a right temporal mass and a perioperative cerebrovascular accident. 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 He initially had significant debility with a functional ind ependence measure score of 47. He was able to ambulate approximately 15 feet with [address] He needed maximal assistance for dressing and with transfers. He had difficulty with seated bal ance. He had dysphagia and was on dysphagia 1 diet and he had significant cognitive deficits. He h ad a steady improvement in his status. His functional independence measure having improved to 91, a s of 08/11/2016. He was walking 200 feet, standby assist to contact, guard assist. He was able to negotiate 18 stairs with 1 rail with standby assistance. He continued to have cognitive deficits pr imarily with dysexecutive impairment. He was noted to have increased flexor tone on the left upper extremity. He had a trial of low-dose baclofen 5 mg 3 times daily but it began to impair his leg function during gait so it was ultimately discontinued. Regarding dysphagia he had a complete recovery and diet was advanced to regular texture with thin li quids. He had an otherwise uncomplicated rehabilitation stay. He had persistent low blood pressure. His renal function was normal. He was not symptomatic from h is low blood pressure and he was hydrated IV early on in his stay but not subsequently and he did we ll. LABS AND STUDIES: During his stay: Basic metabolic profile was done on July 16 which was overall wit hin normal limits. He had a very slight elevation of glucose at 106, TSH was normal at 2.22. These labs were ordered to evaluate fatigue. Fatigue progressively improved. PHYSICAL EXAM ON DAY OF DISCHARGE: VITAL SIGNS: On the day of discharge blood pressure is 89/57, h eart rate is 62, respiratory rate is 14, oxygen saturation is 95% on room air. Temperature is 36.8 degrees centigrade. GENERAL: This is a well-nourished, well-developed, thin man, cooperative and i n no acute distress, ambulating in the [place] with physical therapy following providing standby assist ance. HEART: There is regular rate and rhythm with no murmurs, rubs, or gallops. LUNGS: Clear to auscultation bilaterally. EXTREMITIES: There is no cyanosis, clubbing, or edema. NEUROLOGIC: He is alert and oriented x3. 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 He i s able to ambulate independently, with a step-through pattern using an AFO on the left lower extremi ty though he has to elevate his hip on the left in order to have a full swing through on his gait. CONDITION UPON DISCHARGE: Good. ACTIVITY: Ad geraldo but no driving and he should have supervision in unfamiliar environments with elmer elizabeth. DIET: Regular. DATE OF NEXT APPOINTMENT: He is to follow up with neurosurgeon, Dr. Jam Hare, on 09/25/2016, an d with his primary care provider, Dr. Armenta on 08/21/2016. MEDICATIONS AT DISCHARGE: 1. Fluoxetine 20 mg p.o. daily. 2. Cholecalciferol 1000 units p.o. daily. ISSUES TO BE ADDRESSED AT FOLLOWUP: 1. Functional status regarding mobility, ADLs and cognitive function. He will continue therapies i nitially at home and then on an outpatient basis and follow up with Dr. Armenta. 2. Status post excision of benign brain tumor. He will follow up with neurosurgeon, Dr. Hare. /[id number]/MODL
== END 2016-08-15 15:30 | disposition home or self-care (01) | DRG 92 ==
LOC: BREH 12:00
PROVIDERS: ADMIT Internal Medicine; ATTEND Internal Medicine
PROC: F0636ZZ Communicative/Cognitive Integration Skills Treatment of Neurological System - Whole Body (ICD-10-PCS; principal; 2016-07-04)
PROC: F08Z7ZZ Vocational Activities and Functional Community or Work Reintegration Skills Treatment (ICD-10-PCS; principal; 2016-07-04)
PROC: F07M3ZZ Motor Function Treatment of Musculoskeletal System - Whole Body (ICD-10-PCS; principal; 2016-07-04)
DX: I97.811 Intraoperative cerebrovascular infarction during other surgery (principal); I69.354 Hemiplegia and hemiparesis following cerebral infarction affecting left non-dominant side; I69.391 Dysphagia following cerebral infarction; I69.318 Other symptoms and signs involving cognitive functions following cerebral infarction; I69.398 Other sequelae of cerebral infarction; R41.4 Neurologic neglect syndrome; Z48.3 Aftercare following surgery for neoplasm; C71.2 Malignant neoplasm of temporal lobe; G40.909 Epilepsy, unspecified, not intractable, without status epilepticus; Z79.52 Long term (current) use of systemic steroids; K59.00 Constipation, unspecified
CPT/HCPCS: 92507-GN; 92522-GN; 92526-GN; 92610-GN; 97110-GO; 97110-GP; 97112-GO; 97112-GP; 97116-GP; 97162-GP; 97167-GO; 97530-GO; 97530-GP; 97532-GO; 97535-GO; 97542-GP; 99366-GO; J1650